=== PATIENT | female | born 1945 | race Caucasian/White ===

== ENCOUNTER 2016-12-15 09:11 | Emergency (ER) | payer BC, MEDICARE ==
[~2016-12-15] VITALS: Ht 167.6 cm; Wt 55.5 kg
[~2016-12-15 09:11] MED LIST: Z.0.NO CURRENT MEDS
[2016-12-15 09:13] VITALS: BP 198/104; PULSE 110; RESP 18; TEMP 98.5; O2SAT 96
[2016-12-15] MEDS ORDERED: ARTH650T6 PO (09:31)
[2016-12-15] MEDS ORDERED: OMEGCAP PO (09:31)
[2016-12-15] MEDS ORDERED: ADVI200C5 PO (09:31)
[2016-12-15] MEDS ORDERED: MULT-120 PO (09:31)
--- NOTE | 2016-12-15 09:36 | PD ---
HPI Chief Complaint: Back/ Neck Pain or Injury Time Seen by Provider: 09:34 Travel History International Travel<30 days: No Contact w/Intl Traveler<30days: No Traveled to known affect area: No History of Present Illness HPI 71-year-old female with history of rheumatoid arthritis, presents to the ER today for 3 weeks history of mid back pain that started on its own. She denies any fevers, incontinence, chest pains, abdominal pains, vomiting, or any other symptoms. She states that pain is currently a 9 out of 10 and worse with movements. Modifying Factors: None Associated Signs & Symptoms: 3 weeks of mid back pain Risk Factors: None PFSH Past Medical History Hx Anticoagulant Therapy: No Blood Disorders: No Cancer: No Cardiovascular Problems: No Chemotherapy: No Diabetes: No Genitourinary: No Immune Disorder: No Musculoskeletal: Yes (RHEUMATOID ARTHRITIS) Neurologic: No Reproductive: No Respiratory: No Radiation Therapy: No ?: Not Menopausal: Yes Past Surgical History Hysterectomy: No Joint Replacement: Yes (right hip) Social History Alcohol Use: Yes (DAILY 2 BEERS AND 3 MIXED DRINKS) Tobacco Use: Yes (0.5 PPD) Substance Use: No Allergies-Medications (Allergen,Severity, Reaction): Coded Allergies: No Known Allergies (Verified , 12/15/16) Reported Meds & Prescriptions Reported Meds & Active Scripts Active Reported Multivitamin Women (Multiple Vitamins W/ Minerals) 1 Tab Tab 1 Tab PO DAILY Advil (Ibuprofen) 200 Mg Cap 600 Mg PO TID Arthritis Pain Reliever ER 8 HR (Acetaminophen) 650 Mg Tab 650 Mg PO Q8HR PRN [place]-3 Fish Oil/Vitamin (Fish Oil-Cholecalciferol) 1,000-1,000 Mg Cap 1 Cap PO DAILY Review of Systems Except as stated in HPI: all other systems reviewed are Neg Physical Exam Narrative GENERAL: Well-developed elderly white female patient currently in mild distress. Awake and oriented 3. SKIN: Focused skin assessment warm/dry. HEAD: Atraumatic. Normocephalic. EYES: Pupils equal and round. No scleral icterus. No injection or drainage. ENT: No nasal bleeding or discharge. Mucous membranes pink and moist. NECK: Trachea midline. No JVD. CARDIOVASCULAR: Regular rate and rhythm. No murmur appreciated. RESPIRATORY: No accessory muscle use. Clear to auscultation. Breath sounds equal bilaterally. GASTROINTESTINAL: Abdomen soft, non-tender, nondistended. Hepatic and splenic margins not palpable. BACK: No CVA tenderness. No rash. Paraspinal mid back area tenderness around T9 -T10 area with no step-offs or obvious deformities. MUSCULOSKELETAL: No obvious deformities. No clubbing. No cyanosis. No edema. NEUROLOGICAL: Awake and alert. No obvious cranial nerve deficits. Motor grossly within normal limits. Normal speech. PSYCHIATRIC: Appropriate mood and affect; insight and judgment normal. Data Data Last Documented VS Vital Signs Date Time Temp Pulse Resp B/P Pulse Ox O2 Delivery O2 Flow Rate FiO2 12/15/16 11:09 15 12/15/16 09:13 98.5 110 198/104 96 Orders Tramadol-Acetamin 37.5-325 Mg (Ultracet (12/15/16 09:45) Ct Thor Spine W/O Contrast (12/15/16 09:37) Ct Lumb Spine W/O Contrast (12/15/16 09:37) [facility] Medical Decision Making Medical Screen Exam Complete: Yes Emergency Medical Condition: Yes Medical Record Reviewed: Yes Interpretation(s) Last 24 hours Impressions Thoracic Spine CT 12/15/16936 Signed Impressions: Service Date/Time: December 09:39 - CONCLUSION: 1. Diffuse lytic process at T7 with paraspinal prominence and effacement of the ventral thecal sac without canal stenosis. This is likely related to metastatic disease. Mild loss of height of T7. 2. Small lytic lesion also at T5 and is scattered throughout the cervical spine not completely evaluated. 3. Scoliosis and degenerative changes. Jeff Hardy MD Lumbar Spine CT 12/15/16936 Signed Impressions: Service Date/Time: December 09:39 - CONCLUSION: 1. Lytic bone destruction of the medial 11th rib with soft tissue mass. Differential diagnosis is myeloma or metastatic bone disease. 2. Mild compression fractures of L4 and T12 as above. 3. Moderate to advanced degenerative disc disease with a rotatory levoscoliosis and multilevel canal stenosis as above. Juan Marcos MD Differential Diagnosis Mid back pains for 3 weeksarthritis versus fractures versus other acute processes Narrative Course CTs show multilevel areas of what appears to be lytic lesions concerning for underlying myeloma or metastatic disease. There are no signs of spinal cord compression and any these levels. Patient is ambulatory in the ER, was given tramadol and has no focal neurological deficits. At this point, I have talked to the patient regarding findings and have recommended further follow-up with primary care physician in oncology. Return for any worsening in pain or disability or new issues as needed. The plan has been discussed with the patient and she states understanding. Diagnosis Primary Impression: Lytic lesion of bone on x-ray Additional Impression: Back pain Med/Other Pt SpecificInfo: Prescription(s) given Scripts Hydrocodone-Acetaminophen (Lortab)5-325 Mg Tab1-2 Tab PO Q6H PRN (PAIN) #20 TAB Ref 0 Prov:Marlene Cortes MD 12/15/16 Disposition: 01 DISCHARGE HOME Condition: Stable Marlene Cortes MD December 15, 2016 09:36
[2016-12-15] MEDS ORDERED: traMADol/ACETAMINOPHEN 37.5/325 1 TAB PO ONE (09:45)
[2016-12-15 11:09] VITALS: RESP 15
--- NOTE | 2016-12-15 11:09 | RADHPO ---
EXAM DATE/TIME: 12/15/2016 09:39 [facility] COMPARISON: No previous studies available for comparison. INDICATIONS : Upper back pain x 3 days. RADIATION DOSE: 22.81 CTDIvol (mGy) ; Combined studies - Thoracic Spine/Lumbar Spine MEDICAL HISTORY : Rheumatoid arthritis. SURGICAL HISTORY : Right hip replacement. ENCOUNTER: Initial ACUITY: 3 weeks PAIN SCALE: 8/10 LOCATION: Thoracic spine TECHNIQUE: Volumetric scanning of the thoracic spine was performed. Multiplanar reconstructions in the sagittal , coronal and oblique axial planes were performed. Using automated exposure control and adjustment o f the mA and/or kV according to patient size, radiation dose was kept as low as reasonably achievable to obtain optimal diagnostic quality images. FINDINGS: There is dextroscoliosis of the midthoracic spine and levoscoliosis at the thoracolumbar junction. Th ere is mild loss of height along the superior endplate of T12, likely old. Multilevel degenerative ch anges. There is osteopenia. Diffuse lytic process throughout T7 vertebral body with slight paraspinal soft tissue prominence concerning for metastatic disease. Mild loss of height of T7. Slight lytic le abdi also involving the left aspect of T5. There may be some lytic lesions also within the cervical s pine. T1-T2: Normal. T2-T3: The thecal sac has a normal diameter. No evidence of disc bulge or protrusion. T3-T4: The thecal sac has a normal diameter. No evidence of disc bulge or protrusion. T4-T5: The thecal sac has a normal diameter. No evidence of disc bulge or protrusion. T5-T6: The thecal sac has a normal diameter. No evidence of disc bulge or protrusion. T6-T7: The thecal sac has a normal diameter. No evidence of disc bulge or protrusion. T7-T8: Slight retropulsion of posterior fragments at T7 abutting the ventral thecal sac without significant canal stenosis. T8-T9: Mild broad-based disc bulge without canal stenosis. T9-T10: The thecal sac has a normal diameter. No evidence of disc bulge or protrusion. T10-T11: The thecal sac has a normal diameter. No evidence of disc bulge or protrusion. T11-T12: The thecal sac has a normal diameter. No evidence of disc bulge or protrusion. T12-L1: The thecal sac has a normal diameter. No evidence of disc bulge or protrusion. CONCLUSION: 1. Diffuse lytic process at T7 with paraspinal prominence and effacement of the ventral thecal sac wi thout canal stenosis. This is likely related to metastatic disease. Mild loss of height of T7. 2. Small lytic lesion also at T5 and is scattered throughout the cervical spine not completely evalua sissy. 3. Scoliosis and degenerative changes. Jeff Hardy MD on December 15, 2016 at 11:00 Board Certified Radiologist. This report was verified electronically.
--- NOTE | 2016-12-15 11:16 | RADHPO ---
EXAM DATE/TIME: 12/15/2016 09:39 [facility] COMPARISON: No previous studies available for comparison. INDICATIONS : Back pain. RADIATION DOSE: 22.81 CTDIvol (mGy) ; Combined studies - Thoracic Spine/Lumbar Spine MEDICAL HISTORY : Rheumatoid arthritis. SURGICAL HISTORY : Right hip replacement. ENCOUNTER: Initial ACUITY: 3 weeks PAIN SCALE: 2/10 LOCATION: Lumbar spine. TECHNIQUE: Volumetric scanning of the lumbar spine was performed. Multiplanar reconstructions in the sagittal, coronal and oblique axial planes were performed. Using automated exposure control and adjustment of the mA and/or kV according to patient size, radiation dose was kept as low as reasonably achievable t o obtain optimal diagnostic quality images. FINDINGS: There is lytic bone destruction of the medial aspect of the right 11th rib associated with a 4.6 x 2. 4 cm soft tissue mass, suspicious for either myeloma or metastatic bone disease. There is a mild compression fracture involving the inferior endplate of L4. Incidental note also made of a compression fracture superior endplate T12. There is a moderate rotatory lumbar dextroscoliosis . Moderate degenerative disc disease present throughout. At T12-L1 there is no significant stenosis. At L1-2 there is a disc osteophyte complex with right-sided lateral recess and foraminal stenosis. At L2-3 there is a broad-based disc osteophyte complex with mild central canal and bilateral foramina l stenosis. At L3-4 there is a grade 1 anterolisthesis and mild disc protrusion with facet arthropathy resulting in moderate central canal stenosis and bilateral foraminal stenosis. At L4-5 there is also a grade 1 anterolisthesis and facet arthropathy with moderate central canal lat eral recess stenosis as well as bilateral foraminal stenosis. L5-S1 is a disc bulge. No central canal stenosis. Bilateral foraminal stenosis, left greater than rig ht. CONCLUSION: 1. Lytic bone destruction of the medial 11th rib with soft tissue mass. Differential diagnosis is mye ritesh or metastatic bone disease. 2. Mild compression fractures of L4 and T12 as above. 3. Moderate to advanced degenerative disc disease with a rotatory levoscoliosis and multilevel canal stenosis as above. Juan Marcos MD on December 15, 2016 at 11:08 Board Certified Radiologist. This report was verified electronically.
[2016-12-15] MEDS ORDERED: HYDR-3533 PO (12:07)
[2016-12-15 12:10] VITALS: BP 138/78
== END 2016-12-15 12:19 | disposition home or self-care (01) ==
LOC: PHEFT 09:11
DX: M89.9 Disorder of bone, unspecified (principal); R93.7 Abnormal findings on diagnostic imaging of other parts of musculoskeletal system; M54.9 Dorsalgia, unspecified
CPT/HCPCS: 72128; 72131

== ENCOUNTER 2016-12-17 09:26 | Inpatient (IN) | payer MEDICARE ==
[~2016-12-17] VITALS: Ht 162.6 cm; Wt 58.3 kg
[~2016-12-17 09:26] MED LIST changes: +ADVI200C5 PO; +ARTH650T6 PO; +HYDR-3533 PO; +MULT-120 PO; +OMEGCAP PO; -Z.0.NO CURRENT MEDS
[2016-12-17 09:33] VITALS: BP 146/70; PULSE 100; RESP 16; TEMP 97.6; O2SAT 98
[2016-12-17] MEDS ORDERED: PERC7.5T13 PO (09:44)
[2016-12-17] MEDS ORDERED: NAPR220T95 PO (09:44)
--- NOTE | 2016-12-17 09:59 | PD ---
HPI Chief Complaint: Back/ Neck Pain or Injury Time Seen by Provider: 09:47 Travel History International Travel<30 days: No Contact w/Intl Traveler<30days: No Traveled to known affect area: No History of Present Illness HPI 71-year-old female with history of rheumatoid arthritis here for evaluation of left upper back pain. The patient was seen in the emergency department 2 days ago for evaluation of the same pain which has been going on for the last 3 weeks. At that time she had CT thoracic spine and lumbar spine which show diffuse lytic process concerning for metastatic disease. Patient was discharged home with hydrocodone which she states is not helping her. She was unable to get in with her primary care physician. Pain is severe, constant, worse with movement and palpation. She denies dyspnea. No history of cardiopulmonary disease. No urinary or bowel incontinence or retention. No previous history of any known cancers. PFSH Past Medical History Hx Anticoagulant Therapy: No Blood Disorders: No Cancer: No Cardiovascular Problems: No Chemotherapy: No Diabetes: No Genitourinary: No Immune Disorder: No Musculoskeletal: Yes (RHEUMATOID ARTHRITIS) Neurologic: No Reproductive: No Respiratory: No Radiation Therapy: No ?: Not Menopausal: Yes Past Surgical History Hysterectomy: No Joint Replacement: Yes (right hip) Social History Alcohol Use: Yes (DAILY 2 BEERS AND 3 MIXED DRINKS) Tobacco Use: Yes (0.5 PPD) Substance Use: No Allergies-Medications (Allergen,Severity, Reaction): Coded Allergies: No Known Allergies (Verified , 12/17/16) Reported Meds & Prescriptions Reported Meds & Active Scripts Active Lortab (Hydrocodone-Acetaminophen) 5-325 Mg Tab 1-2 Tab PO Q6H PRN Reported Percocet (Oxycodone-Acetaminophen) 7.5-325 mg Tab 1 Tab PO Q6H PRN Aleve (Naproxen Sodium) 220 Mg Tab 220 Mg PO BID PRN Multivitamin Women (Multiple Vitamins W/ Minerals) 1 Tab Tab 1 Tab PO DAILY Advil (Ibuprofen) 200 Mg Cap 600 Mg PO TID [place]-3 Fish Oil/Vitamin (Fish Oil-Cholecalciferol) 1,000-1,000 Mg Cap 1 Cap PO DAILY Review of Systems Except as stated in HPI: all other systems reviewed are Neg Physical Exam Narrative GENERAL: Well-developed, frail, elderly appearing female, sitting on stretcher, no distress secondary to pain. SKIN: Focused skin assessment warm/dry. No rash. HEAD: Atraumatic. Normocephalic. EYES: Pupils equal and round. No scleral icterus. No injection or drainage. ENT: Mucous membranes pink and moist. NECK: Trachea midline. No JVD. CARDIOVASCULAR: Regular rate and rhythm. No murmur appreciated. RESPIRATORY: No accessory muscle use. Clear to auscultation. Breath sounds equal bilaterally. GASTROINTESTINAL: Abdomen soft, non-tender, nondistended. MUSCULOSKELETAL: Left upper posterior chest wall tenderness without step-off, without crepitus, without paradoxical chest wall movement. NEUROLOGICAL: Awake and alert. No obvious cranial nerve deficits. Motor grossly within normal limits. Normal speech. PSYCHIATRIC: Appropriate mood and affect; insight and judgment normal. Data Data Last Documented VS Vital Signs Date Time Temp Pulse Resp B/P Pulse Ox O2 Delivery O2 Flow Rate FiO2 12/17/16 11:14 96 16 148/64 95 Room Air 12/17/16 09:33 97.6 Orders Electrocardiogram (12/17/16 09:53) Basic Metabolic Panel (Bmp) (12/17/16 09:53) Ckmb (Isoenzyme) Profile (12/17/16 09:53) Complete Blood Count With Diff (12/17/16 09:53) Magnesium (Mg) (12/17/16 09:53) Prothrombin Time / Inr (Pt) (12/17/16 09:53) Act Partial Throm Time (Ptt) (12/17/16 09:53) Troponin I (12/17/16 09:53) Ecg Monitoring (12/17/16 09:53) Iv Access Insert/Monitor (12/17/16 09:53) Oximetry (12/17/16 09:53) Sodium Chloride 0.9% Flush (Ns Flush) (12/17/16 10:00) Morphine Inj (Morphine Inj) (12/17/16 10:00) Ct Pulmonary Angiogram (12/17/16 09:53) Ct Abd/Pel W Iv Contrast(Rout) (12/17/16 ) Morphine Inj (Morphine Inj) (12/17/16 10:00) Sodium Chlor 0.9% 1000 Ml Inj (Ns 1000 M (12/17/16 10:45) Potassium Chloride (Kcl) (12/17/16 10:45) Iohexol 350 Inj (Omnipaque 350 Inj) (12/17/16 11:50) Morphine Inj (Morphine Inj) (12/17/16 12:30) Labs Laboratory Tests Test 12/17/16 10:18 White Blood Count 9.2 TH/MM3 Red Blood Count 4.47 MIL/MM3 Hemoglobin 13.9 GM/DL Hematocrit 41.6 % Mean Corpuscular Volume 93.0 FL Mean Corpuscular Hemoglobin 31.1 PG Mean Corpuscular Hemoglobin 33.5 % Concent Red Cell Distribution Width 11.2 % Platelet Count 496 TH/MM3 Mean Platelet Volume 6.6 FL Neutrophils (%) (Auto) 85.5 % Lymphocytes (%) (Auto) 7.4 % Monocytes (%) (Auto) 4.7 % Eosinophils (%) (Auto) 0.0 % Basophils (%) (Auto) 2.4 % Neutrophils # (Auto) 7.9 TH/MM3 Lymphocytes # (Auto) 0.7 TH/MM3 Monocytes # (Auto) 0.4 TH/MM3 Eosinophils # (Auto) 0.0 TH/MM3 Basophils # (Auto) 0.2 TH/MM3 CBC Comment DIFF FINAL Differential Comment Prothrombin Time 10.9 SEC Prothromb Time International 1.0 RATIO Ratio Activated Partial 31.5 SEC Thromboplast Time Sodium Level 126 MEQ/L Potassium Level 3.2 MEQ/L Chloride Level 88 MEQ/L Carbon Dioxide Level 27.8 MEQ/L Anion Gap 10 MEQ/L Blood Urea Nitrogen 11 MG/DL Creatinine 0.88 MG/DL Estimat Glomerular Filtration 63 ML/MIN Rate Random Glucose 204 MG/DL Calcium Level 10.3 MG/DL Magnesium Level 1.8 MG/DL Total Creatine Kinase 48 U/L Troponin I LESS THAN 0.02 NG/ML [facility] Medical Decision Making Medical Screen Exam Complete: Yes Emergency Medical Condition: Yes Medical Record Reviewed: Yes Differential Diagnosis Metastatic disease, multiple myeloma, metabolic abnormality Narrative Course Initial vital signs show heart rate 100, blood pressure 146/70, pulse ox 98% on room air, oral temp of 97.6F. CBC shows WBC 9.2, hemoglobin 13.9, hematocrit 41.6, platelets 496, neutrophils 85.5%, lymphocytes 7.4%. BMP is remarkable for sodium 126, potassium 3.2, chloride 88, calcium 10.3. Cardiac enzymes are negative. CT abdomen pelvis: CONCLUSION: 1. Metastatic lesion to the left posterior acetabulum. 2. Left adnexal mass measures 4.0 x 2.7 cm could be ovarian in etiology. Pelvic sonogram may be warranted. 3. Wall thickening involving the anterior urinary bladder measuring [address] pulmonary angiogram: CONCLUSION: 1. Bibasilar patchy densities likely atelectasis. 2. No evidence for pulmonary embolism. 3. Metastatic lesions involving thoracic spine and right 11th ribs. Patient was made aware of all findings. She has had moderate improvement in her pain after morphine, however she is still having back pain. She was given another dose of morphine. Given intractable pain, electrolyte abnormalities as above, and metastatic disease, the patient will be admitted for further treatment and evaluation. Case discussed with hospitalist Dr. Xiong who will admit the patient to his service. Diagnosis Primary Impression: Metastatic disease Additional Impressions: Hyponatremia Hypokalemia Intractable pain Admitting Information Admitting Physician Requests: Admit David Perez MD December 17, 2016 09:59
[2016-12-17] MEDS ORDERED: MORPHINE SULFATE 4 MG/ML INJ IV PUSH ONE ×3 (10:00→12:30)
[2016-12-17] MEDS ORDERED: SODIUM CHLORIDE 0.9% FLUSH 10 ML FLUSH IVF PRN (10:00)
[2016-12-17 10:09] VITALS: O2SAT 97
[2016-12-17 10:23] LABS: AUTOMATED NEUTROPHIL # 7.9 TH/MM3 (1.8-7.7); BASOPHIL # 0.2 TH/MM3 (0-0.2); BASOPHIL % 2.4 % (0.0-2.0); HEMATOCRIT 41.6 % (35.0-46.0); HEMO FLAGS DIFF FINAL; LYMPH % 7.4 % (9.0-44.0); LYMPHOCYTE # 0.7 TH/MM3 (1.0-4.8); MEAN CORPUSCULAR HEMOGLOBIN 31.1 PG (27.0-34.0); MEAN CORPUSCULAR HGB CONC 33.5 % (32.0-36.0); MONO % 4.7 % (0.0-8.0); NEUT % 85.5 % (16.0-70.0); PLATELET COUNT 496 TH/MM3 (150-450); RED BLOOD COUNT 4.47 MIL/MM3 (4.00-5.30); RED CELL DISTRIBUTION WIDTH 11.2 % (11.6-17.2); WHITE BLOOD COUNT 9.2 TH/MM3 (4.0-11.0)
[2016-12-17 10:31] LABS: CHLORIDE 88 MEQ/L (98-107); POTASSIUM 3.2 MEQ/L (3.5-5.1); SODIUM (NA) 126 MEQ/L (136-145)
[2016-12-17 10:34] LABS: ANION GAP 10 MEQ/L (5-15); BICARBONATE 27.8 MEQ/L (21.0-32.0); BLOOD UREA NITROGEN 11 MG/DL (7-18); MAGNESIUM 1.8 MG/DL (1.5-2.5)
[2016-12-17 10:35] LABS: APTT (PATIENT) 31.5 SEC (24.3-30.1); PROTHROMBIN TIME - PATIENT 10.9 SEC (9.8-11.6)
[2016-12-17 10:37] LABS: GLOMERULAR FILTRATION RATE 63 ML/MIN (>89)
[2016-12-17 10:41] LABS: CREATINE KINASE 48 U/L (26-192)
[2016-12-17] MEDS ORDERED: SODIUM CHLOR 0.9% 1000 ML INJ 1,000 ML IV SCH (10:45)
[2016-12-17] MEDS ORDERED: POTASSIUM CHLORIDE 20 MEQ CONTROLLED RELEASE TAB PO ONE (10:45)
[2016-12-17 11:14] VITALS: BP 148/64; PULSE 96; RESP 16; O2SAT 95
[2016-12-17] MEDS ORDERED: IOHEXOL 350 MG/ML 10 ML VIAL (for RAD DIAG) IV ONE (11:50)
--- NOTE | 2016-12-17 11:54 | RADHPO ---
EXAM DATE/TIME: 12/17/2016 11:23 [facility] COMPARISON: No previous studies available for comparison. INDICATIONS : Low chest pain and mid abdomen pain for one month. IV CONTRAST: 100 cc Omnipaque 350 (iohexol) IV ; Cumulative dose for multiple exams. RADIATION DOSE: 13.95 CTDIvol (mGy) MEDICAL HISTORY : Rheumatoid arthritis. SURGICAL HISTORY : None. ENCOUNTER: Initial ACUITY: 1 month PAIN SCALE: 8/10 LOCATION: Left chest TECHNIQUE: Volumetric scanning of the chest was performed using a pulmonary embolism protocol MIP images were re constructed. Using automated exposure control and adjustment of the mA and/or kV according to patien t size, radiation dose was kept as low as reasonably achievable to obtain optimal diagnostic quality images. FINDINGS: PULMONARY ARTERIES: No filling defects are seen in the pulmonary arteries through the segmental level. LUNGS: There is no consolidation or pneumothorax . No concerning pulmonary nodule is visualized. Bibasilar patchy densities. PLEURAE: There is no pleural thickening or pleural effusion. MEDIASTINUM: There is good visualization of the great vessels of the middle mediastinum. No evidence of mediastin al or hilar adenopathy/mass. Coronary artery calcifications. MUSCULOSKELETAL: Lytic lesions at T7 and T5. Soft tissue density with destruction of the right 11th rib medially. Ther e is also appears to be metastatic disease involving the right proximal humerus Scoliosis and degener ative changes. MISCELLANEOUS: The visualized upper abdominal organs demonstrate no acute abnormality. CONCLUSION: 1. Bibasilar patchy densities likely atelectasis. 2. No evidence for pulmonary embolism. 3. Metastatic lesions involving thoracic spine and right 11th ribs. Jeff Hardy MD on December 17, 2016 at 11:47 Board Certified Radiologist. This report was verified electronically.
--- NOTE | 2016-12-17 11:59 | RADHPO ---
EXAM DATE/TIME: 12/17/2016 11:23 [facility] COMPARISON: No previous studies available for comparison. INDICATIONS : Low chest pain and mid abdomen pain for one month. IV CONTRAST: 100 cc Omnipaque 350 (iohexol) IV ; Cumulative dose for multiple exams. ORAL CONTRAST: No oral contrast ingested. RADIATION DOSE: 15.17 CTDIvol (mGy) MEDICAL HISTORY : Rheumatoid arthritis. SURGICAL HISTORY : None. ENCOUNTER: Initial ACUITY: 1 day PAIN SCALE: 8/10 LOCATION: Left abdomen. TECHNIQUE: Volumetric scanning of the abdomen and pelvis was performed. Using automated exposure control and ad justment of the mA and/or kV according to patient size, radiation dose was kept as low as reasonably achievable to obtain optimal diagnostic quality images. FINDINGS: LOWER LUNGS: The visualized lower lungs are clear. LIVER: Homogeneous density without lesion. There is no dilation of the biliary tree. No calcified gallston es. SPLEEN: Normal size without lesion. PANCREAS: Within normal limits. KIDNEYS: Normal in size and shape. There is no mass, stone or hydronephrosis. Small left renal cyst posterior ly. ADRENAL GLANDS: Within normal limits. VASCULAR: There is no aortic aneurysm. Diffuse atherosclerotic changes. BOWEL/MESENTERY: The stomach, small bowel, and colon demonstrate no acute abnormality. There is no free intraperitone al air or fluid. ABDOMINAL WALL: Within normal limits. RETROPERITONEUM: There is no lymphadenopathy. BLADDER: There is wall thickening anteriorly measuring 11 mm. REPRODUCTIVE: Left adnexal mass measures 3.7 x 4.0 cm. INGUINAL: There is no lymphadenopathy or hernia. MUSCULOSKELETAL: Soft tissue density involving the left posterior acetabulum measuring 2.6 x 3.8 cm. Right hip prosthe sis. CONCLUSION: 1. Metastatic lesion to the left posterior acetabulum. 2. Left adnexal mass measures 4.0 x 2.7 cm could be ovarian in etiology. Pelvic sonogram may be warra nted. 3. Wall thickening involving the anterior urinary bladder measuring 11 mm in thickness. Jeff Hardy MD on December 17, 2016 at 11:53 Board Certified Radiologist. This report was verified electronically.
[2016-12-17] MEDS ORDERED: NALOXONE HCL 0.4 MG/ML AMP IV PRN (12:30)
[2016-12-17] MEDS ORDERED: SODIUM CHLORIDE 0.9% FLUSH 10 ML FLUSH IV FLUSH PRN (12:30)
[2016-12-17] MEDS ORDERED: MAGNESIUM HYDROXIDE SUSP 30 ML CUP PO PRN (12:30)
[2016-12-17] MEDS ORDERED: ONDANSETRON HCL 4 MG/2 ML VIAL IVP PRN (12:30)
[2016-12-17] MEDS: DOCUSATE SODIUM 100 MG CAP PO SCH ×2 (12:53→21:06)
[2016-12-17] MEDS: SODIUM CHLOR 0.9% 1000 ML INJ 1,000 ML IV SCH (12:54)
[2016-12-17 13:49] VITALS: BP 133/69
[2016-12-17] MEDS: HEPARIN SODIUM - SQ 10,000 UNITS/ML VIAL SQ SCH (15:12)
[2016-12-17] MEDS: MORPHINE SULFATE 30 MG CONTROLLED RELEASE TAB PO SCH ×2 (15:12→21:42)
--- NOTE | 2016-12-17 16:44 | HHI.HP ---
[facility] Darius Lerma MD Admission Diagnosis metastatic disease, hyponatremia, hypokalemia, intractable pain Diagnoses: Chief Complaint: Intractable back pain, failed outpatient therapy Travel History International Travel<30 Days: No Contact w/Intl Traveler <30 Da: No Traveled to Known Affected Are: No History of Present Illness 71-year-old female with history of rheumatoid arthritis who initially presented to the hospital 2 days ago with complaint of back pain. The patient was found to have to have thoracic spine lytic lesions concerning for underlying myeloma or metastatic disease. She was discharged home with pain medication to follow- up outpatient with her primary care physician for referral to oncology. However the patient reports Lortab did not help her pain at all. She is having difficulty ambulating and the pain is severe. It is located in the mid upper back mostly with radiation to the left lower ribs. It is difficult for her to take deep breaths. Further imaging in the emergency room today revealed lytic lesion in the left posterior acetabulum and an adnexal mass measuring 4 x 2.7 cm. The patient is also found to be hypernatremic and hypokalemic. She has not been eating or drinking much since she has been feeling poorly. She has not been able to get in with her primary care physician. Hospitalist service contacted for admission, further workup and treatment. Review of Systems Constitutional: DENIES: Fever, Chills Respiratory: DENIES: Cough, Shortness of breath Cardiovascular: DENIES: Chest pain Gastrointestinal: DENIES: Nausea, Vomiting Musculoskeletal: COMPLAINS OF: Back pain Except as stated in HPI: all other systems reviewed are Neg Past Family Social History Past Medical History Rheumatoid arthritis History of alcohol abuse Scoliosis Past Surgical History Right hip fracture repair with rods and plates Reported Medications Reported Meds & Active Scripts Active Lortab (Hydrocodone-Acetaminophen) 5-325 Mg Tab 1-2 Tab PO Q6H PRN Reported Percocet (Oxycodone-Acetaminophen) 7.5-325 mg Tab 1 Tab PO Q6H PRN Aleve (Naproxen Sodium) 220 Mg Tab 220 Mg PO BID PRN Multivitamin Women (Multiple Vitamins W/ Minerals) 1 Tab Tab 1 Tab PO DAILY Advil (Ibuprofen) 200 Mg Cap 600 Mg PO TID [place]-3 Fish Oil/Vitamin (Fish Oil-Cholecalciferol) 1,000-1,000 Mg Cap 1 Cap PO DAILY Allergies: Coded Allergies: No Known Allergies (Verified , 12/17/16) Family History Mother with history of diabetes and rheumatic fever. Father was healthy Social History Patient admits to drinking 4 beers daily and 2 glasses of wine at night. She has been smoking half a pack per day for the past 50 years. She denies illicit drug use. Physical Exam Vital Signs Vital Signs Date Time Temp Pulse Resp B/P Pulse Ox O2 Delivery O2 Flow Rate FiO2 12/17/16 13:49 101 16 133/69 99 12/17/16 11:14 96 16 148/64 95 Room Air 12/17/16 11:08 16 12/17/16 10:09 97 Room Air 12/17/16 09:33 97.6 100 16 146/70 98 Physical Exam GENERAL: Elderly female in no acute distress. SKIN: No rashes, ecchymoses or lesions. Cool and dry. HEAD: Atraumatic. Normocephalic. No temporal or scalp tenderness. EYES: Pupils equal round and reactive. Extraocular motions intact. No scleral icterus. No injection or drainage. ENT: Nose without bleeding, purulent drainage or septal hematoma. Throat without erythema, tonsillar hypertrophy or exudate. Uvula midline. Airway patent. NECK: Trachea midline. No JVD or lymphadenopathy. Supple, nontender, no meningeal signs. CARDIOVASCULAR: Regular rate and rhythm without murmurs, gallops, or rubs. RESPIRATORY: Clear to auscultation. Breath sounds equal bilaterally. No wheezes , rales, or rhonchi. GASTROINTESTINAL: Abdomen soft, non-tender, nondistended. No hepato-splenomegaly , or palpable masses. No guarding. MUSCULOSKELETAL: Patient is tender to palpation over the upper back/thoracic region. She also endorsed tenderness to palpation over the left lower ribs. Extremities without clubbing, cyanosis, or edema. NEUROLOGICAL: Awake and alert. Cranial nerves II through XII intact. Motor and sensory grossly within normal limits. Five out of 5 muscle strength in all muscle groups. Normal speech. Laboratory Laboratory Tests Test 12/17/16 10:18 White Blood Count 9.2 Red Blood Count 4.47 Hemoglobin 13.9 Hematocrit 41.6 Mean Corpuscular Volume 93.0 Mean Corpuscular Hemoglobin 31.1 Mean Corpuscular Hemoglobin 33.5 Concent Red Cell Distribution Width 11.2 Platelet Count 496 Mean Platelet Volume 6.6 Neutrophils (%) (Auto) 85.5 Lymphocytes (%) (Auto) 7.4 Monocytes (%) (Auto) 4.7 Eosinophils (%) (Auto) 0.0 Basophils (%) (Auto) 2.4 Neutrophils # (Auto) 7.9 Lymphocytes # (Auto) 0.7 Monocytes # (Auto) 0.4 Eosinophils # (Auto) 0.0 Basophils # (Auto) 0.2 CBC Comment DIFF FINAL Differential Comment Prothrombin Time 10.9 Prothromb Time International 1.0 Ratio Activated Partial 31.5 Thromboplast Time Sodium Level 126 Potassium Level 3.2 Chloride Level 88 Carbon Dioxide Level 27.8 Anion Gap 10 Blood Urea Nitrogen 11 Creatinine 0.88 Estimat Glomerular Filtration 63 Rate Random Glucose 204 Calcium Level 10.3 Magnesium Level 1.8 Total Creatine Kinase 48 Troponin I LESS THAN 0.02 Result Diagram: 12/17/16 1018 12/17/[address] Angiography 12/17/16 0953 Signed Impressions: Service Date/Time: Saturday, December 17, 2016 11:23 - CONCLUSION: 1. Bibasilar patchy densities likely atelectasis. 2. No evidence for pulmonary embolism. 3. Metastatic lesions involving thoracic spine and right 11th ribs. Jeff Hardy MD Abdomen/Pelvis CT 12/17/16 0000 Signed Impressions: Service Date/Time: Saturday, December 17, 2016 11:23 - CONCLUSION: 1. Metastatic lesion to the left posterior acetabulum. 2. Left adnexal mass measures 4.0 x 2.7 cm could be ovarian in etiology. Pelvic sonogram may be warranted. 3. Wall thickening involving the anterior urinary bladder measuring 11 mm in thickness. Jeff Hardy MD Assessment and Plan Problem List: (1) Intractable pain ICD Code: R52 Status: Acute Plan: Patient has multiple bony lytic lesions concerning for metastatic disease. She does have an adnexal mass that could potentially be ovarian in origin. - Pain control. Will switch her to oral long-acting morphine. IV morphine for breakthrough - Consult oncology for recommendations. (2) Lytic lesion of bone on x-ray ICD Code: M89.9 Status: Acute Plan: See treatment as above. (3) Adnexal mass ICD Code: N94.9 Status: Acute Plan: May be a potential site for biopsy. Awaiting recommendations from oncology. (4) Back pain ICD Code: M54.9 Status: Acute (5) Hypokalemia ICD Code: E87.6 Status: Acute Plan: Replace and monitor. (6) Hyponatremia ICD Code: E87.1 Status: Acute Plan: Probably hypovolemic hyponatremia from lack of oral intake. IV fluid for hydration. Follow labs in AM. (7) Tobacco abuse ICD Code: Z72.0 Status: Acute Plan: The patient was counseled to quit. (8) Alcohol abuse ICD Code: F10.10 Status: Acute Plan: Will start CIWA protocol Patient counseled on the adverse effects of alcohol abuse. Discussed Condition With Carlyle Matute MD December 17, 2016 16:44
[2016-12-17] MEDS ORDERED: FLUMAZENIL 0.5 MG/5 ML VIAL IV PUSH PRN (16:45)
[2016-12-17] MEDS ORDERED: LORazepam 2 MG TAB PO PRN (16:45)
[2016-12-17] MEDS ORDERED: LORazepam 2 MG/ML VIAL IV PUSH PRN ×2 (16:45)
[2016-12-17 17:13] VITALS: BP 115/76; PULSE 92; RESP 15; TEMP 98.4; O2SAT 97
[2016-12-17 20:18] VITALS: BP 209/112; PULSE 97; RESP 22; TEMP 98.2; O2SAT 97
[2016-12-17] MEDS: SODIUM CHLORIDE 0.9% FLUSH 10 ML FLUSH IV FLUSH SCH (21:08)
--- NOTE | 2016-12-17 22:59 | MB ---
cc: FAIZA PARR DATE OF CONSULTATION 12/17/16 REASON FOR CONSULTATION Abnormal CT scans showing metastatic disease to bone and pelvic soft tissue mass. PATIENT PROFILE The patient is a 71-year-old white female. She is and was twice. She was born in [place] and has lived in [place] for 35 years. She lives alone. She is independent. She now has severe bone pain and it is very difficult for her to care for herself. She is retired. 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 She currently smokes six cigarettes a day. In the past, she had smoked a pack a day for approximately 50 years. She has four beers and two glasses of wine daily. HISTORY OF PRESENT ILLNESS The patient is a 71-year-old female with a longstanding history of tobacco and ethanol use. She has a history of rheumatoid arthritis but has never received treatment. She has a longstanding history of back pain from scoliosis and has seen a chiropractor for the last 17 years. During the past three weeks, she developed pain primarily in the thoracic spine and the left shoulder area. The pain became excruciating. On 12/15/2016 she went to the emergency room and she was found to have a diffuse lytic process at T7 with a paraspinal prominence and effacement of the ventral thecal sac without canal stenosis. This was felt to be related to metastatic disease. There was a small lytic lesion at T5 that was scoliosis. A CT of the lumbar spine showed a lytic bone destruction of the medial left rib with soft tissue mass. Differential diagnosis was myeloma or metastatic bone disease. There was mild compression of L4 and T12. She went home with the understanding being that she would follow up with her doctor and see a medical oncologist. She was not able to get an appointment immediately and the pain worsened. She returned and has been admitted. She had a CAT scan of the abdomen and pelvis on December 17, 2016 which shows a metastatic lesion to the left posterior acetabulum and a left adnexal mass measuring 4 x 2. centimeters. There was wall thickening involving the anterior urinary bladder measuring [address] angiogram of the chest showed bibasilar densities, likely atelectasis. There was no evidence for pulmonary embolism. There was metastatic lesions involving the thoracic spine and the right 11th rib. LABORATORY DATA Laboratory studies include a sodium of 126, potassium 3.2, chloride 88, CO2 27, BUN 11, creatinine 0.8, Hemoglobin is 13.9, white count 9000, platelets 496,000. PAST SURGICAL HISTORY Right hip replacement in approximately 2008 requiring a pin and a plate following a fall. PAST MEDICAL HISTORY 1. Ethanol abuse 2. Tobacco abuse 3. Rheumatoid arthritis. MEDICATIONS Prior to admission none ALLERGIES None. FAMILY HISTORY Noncontributory without any family history of cancer other than possibly one sister. REVIEW OF SYSTEMS No change in vision or hearing. No chest pain, palpitations, no shortness of breath. GI: No melena, hematochezia, no early satiety, no dysphagia. There has been a 5-pound weight loss. : No dysuria or frequency or vaginal bleeding. MUSCULOSKELETAL: Back pain, left shoulder pain. NEUROLOGIC: No focal weakness. PSYCHIATRIC: Depressed over what is going on. PHYSICAL EXAMINATION GENERAL: A woman looking older than stated age and uncomfortable when she moves about VITAL SIGNS: Blood pressure was 200/110, respiratory rate is 22 afebrile, O2 sat 97%, pulse 98. HEENT: Head is normocephalic. Sclerae and conjunctivae are normal. Oropharynx unremarkable. LYMPHS: No cervical, supraclavicular, axillary or inguinal adenopathy. BREASTS: Both breasts, no masses. HEART: Regular rhythm. LUNGS: Clear. ABDOMEN: Without hepatosplenomegaly or masses. EXTREMITIES: Without edema MUSCULOSKELETAL: There is pain over the thoracic spine and left scapular area. ASSESSMENT The patient is a 71-year-old female. She has metastatic disease to bone with a soft tissue component. The primary is not obvious. This would not be the normal pattern for ovarian cancer, although she has an adnexal mass. Ovarian cancer rarely goes to bone and causes intra-abdominal carcinomatosis. She has thickening of the bladder wall raising the possibility of a transitional cell cancer. She has a longstanding history of smoking. RECOMMENDATIONS 1. Check marker studies. Will check CEA, CA-125, serum protein electrophoresis, serum immunoelectrophoresis and urine immunoelectrophoresis 2. I think the simplest thing to do is to obtain a biopsy of the soft tissue mass arising from the right cage. This measures 4.6 x 2.4 cm and should be an easy target. MD MICHELLE Gray/ /10:08 PM /10:35 PM [email or web address]
[2016-12-17 23:04] LABS: APTT (PATIENT) 27.4 SEC (24.3-30.1)
[2016-12-17 23:12] LABS: AUTOMATED NEUTROPHIL # 5.2 TH/MM3 (1.8-7.7); BASOPHIL # 0.3 TH/MM3 (0-0.2); BASOPHIL % 3.7 % (0.0-2.0); EOSINOPHIL % 0.3 % (0.0-4.0); HEMATOCRIT 36.1 % (35.0-46.0); HEMO FLAGS DIFF FINAL; LYMPH % 20.4 % (9.0-44.0); LYMPHOCYTE # 1.5 TH/MM3 (1.0-4.8); MEAN CELL VOLUME 93.5 FL (80.0-100.0); MEAN CORPUSCULAR HEMOGLOBIN 31.4 PG (27.0-34.0); MEAN CORPUSCULAR HGB CONC 33.6 % (32.0-36.0); MONO % 8.3 % (0.0-8.0); NEUT % 67.3 % (16.0-70.0); PLATELET COUNT 432 TH/MM3 (150-450); RED BLOOD COUNT 3.86 MIL/MM3 (4.00-5.30); RED CELL DISTRIBUTION WIDTH 11.3 % (11.6-17.2); WHITE BLOOD COUNT 7.6 TH/MM3 (4.0-11.0)
[2016-12-18] MEDS: SODIUM CHLOR 0.9% 1000 ML INJ 1,000 ML IV SCH ×2 (00:08→08:45)
[2016-12-18 00:31] VITALS: BP 187/95; PULSE 91; RESP 20; TEMP 97.3; O2SAT 92
[2016-12-18] MEDS: HEPARIN SODIUM - SQ 10,000 UNITS/ML VIAL SQ SCH ×2 (01:00→13:24)
[2016-12-18] MEDS: MORPHINE SULFATE 30 MG CONTROLLED RELEASE TAB PO SCH ×3 (05:04→21:57)
[2016-12-18 06:04] LABS: AUTOMATED NEUTROPHIL # 6.1 TH/MM3 (1.8-7.7); BASOPHIL # 0.1 TH/MM3 (0-0.2); BASOPHIL % 0.8 % (0.0-2.0); EOSINOPHIL # 0.1 TH/MM3 (0-0.4); EOSINOPHIL % 0.8 % (0.0-4.0); HEMATOCRIT 35.9 % (35.0-46.0); LYMPH % 13.3 % (9.0-44.0); LYMPHOCYTE # 1.1 TH/MM3 (1.0-4.8); MEAN CELL VOLUME 93.2 FL (80.0-100.0); MEAN CORPUSCULAR HEMOGLOBIN 31.6 PG (27.0-34.0); MEAN CORPUSCULAR HGB CONC 33.9 % (32.0-36.0); MONO % 8.6 % (0.0-8.0); NEUT % 76.5 % (16.0-70.0); PLATELET COUNT 432 TH/MM3 (150-450); RED BLOOD COUNT 3.85 MIL/MM3 (4.00-5.30); RED CELL DISTRIBUTION WIDTH 11.4 % (11.6-17.2); WHITE BLOOD COUNT 8.1 TH/MM3 (4.0-11.0)
[2016-12-18 06:06] LABS: HEMO FLAGS DIFF FINAL
[2016-12-18 06:46] LABS: BICARBONATE 26.7 MEQ/L (21.0-32.0); POTASSIUM 3.5 MEQ/L (3.5-5.1)
[2016-12-18] MEDS ORDERED: cloNIDine HCL 0.1 MG TAB PO PRN (07:45)
[2016-12-18 08:00] VITALS: BP 181/93; PULSE 98; RESP 21; TEMP 97.3; O2SAT 92
[2016-12-18] MEDS: SODIUM CHLORIDE 0.9% FLUSH 10 ML FLUSH IV FLUSH SCH ×2 (08:45→21:56)
[2016-12-18] MEDS: MULTIVITAMINS/MINERALS THERAPEUTIC TAB PO SCH (08:45)
[2016-12-18] MEDS: DOCUSATE SODIUM 100 MG CAP PO SCH ×2 (08:46→21:56)
[2016-12-18] MEDS: amLODIPine BESYLATE 5 MG TAB PO SCH (08:46)
[2016-12-18] MEDS ORDERED: NON-FORMULARY DRUG (Fish Oil-Cholecalciferol (Omega-3 Fish Oil/Vitamin) 1 CAP) PO SCH (09:00)
[2016-12-18] MEDS ORDERED: PILL SPLITTER OTHER PRN (09:15)
[2016-12-18] MEDS: CYCLOBENZAPRINE HCL 10 MG TAB PO PRN ×2 (09:41→17:45)
--- NOTE | 2016-12-18 11:06 | HHI.PR ---
Subjective Remarks Patient reports feeling the same today. Still having significant upper back pain and muscle spasm. No shortness of breath. She has been evaluated by oncology, CT-guided biopsy has been ordered. Objective Vitals Vital Signs Date Time Temp Pulse Resp B/P Pulse Ox O2 Delivery O2 Flow Rate FiO2 12/18/16 08:00 97.3 98 21 181/93 92 12/18/16 00:31 97.3 91 20 187/95 92 12/17/16 20:18 98.2 97 22 209/112 97 12/17/16 17:13 98.4 92 15 115/76 97 12/17/16 13:49 101 16 133/69 99 12/17/16 11:14 96 16 148/64 95 Room Air 12/17/16 11:08 16 I/O 12/17/16 12/17/16 12/17/16 12/18/16 12/18/16 12/18/16 06:59 14:59 22:59 06:59 14:59 22:59 Intake Total 400 ml 382 ml 1191 ml Balance 400 ml 382 ml 1191 ml Intake Oral 250 ml IV Total 150 ml 382 ml 1191 ml # Voids 2 Result Diagram: 12/18/16 0530 12/18/[address] Angiography 12/17/16 0953 Signed Impressions: Service Date/Time: Saturday, December 17, 2016 11:23 - CONCLUSION: 1. Bibasilar patchy densities likely atelectasis. 2. No evidence for pulmonary embolism. 3. Metastatic lesions involving thoracic spine and right 11th ribs. Jeff Hardy MD Abdomen/Pelvis CT 12/17/16 0000 Signed Impressions: Service Date/Time: Saturday, December 17, 2016 11:23 - CONCLUSION: 1. Metastatic lesion to the left posterior acetabulum. 2. Left adnexal mass measures 4.0 x 2.7 cm could be ovarian in etiology. Pelvic sonogram may be warranted. 3. Wall thickening involving the anterior urinary bladder measuring 11 mm in thickness. Jeff Hardy MD Objective Remarks GENERAL: This is a well-nourished, well-developed patient, in no apparent distress. CARDIOVASCULAR: Normal rate and regular rhythm without murmurs, gallops, or rubs. RESPIRATORY: Good respiratory efforts. Breath sounds equal and clear to auscultation bilaterally. GASTROINTESTINAL: Abdomen soft, non-tender, non-distended. Normal active bowel sounds MUSCULOSKELETAL: Tender to palpation over the upper back/thoracic region. She also endorsed tenderness to palpation over the left lower ribs. NEURO: Alert & Oriented x4 to person, place, time, situation. Moves all ext x4 PSYCH: Appropriate mood and affect. A/P Problem List: (1) Metastatic disease ICD Code: C79.9 Status: Acute Plan: Patient has multiple bony lytic lesions concerning for metastatic disease , soft tissue mass about the ribs. She also has an adnexal mass. -Appreciate oncology following. Less likely to be ovarian in origin. CT- guided biopsy of the soft tissue mass arising from the rib cage. -tumor markers ordered. (2) Intractable pain ICD Code: R52 Status: Acute Plan: Patient has multiple bony lytic lesions concerning for metastatic disease , soft tissue mass about the ribs. She also has an adnexal mass. - Pain control. Increase oral long-acting morphine. IV morphine for breakthrough. Add Flexeril as needed -Appreciate oncology following. Less likely to be ovarian in origin. CT- guided biopsy of the soft tissue mass arising from the rib cage. (3) Lytic lesion of bone on x-ray ICD Code: M89.9 Status: Acute Plan: See treatment as above. (4) Adnexal mass ICD Code: N94.9 Status: Acute Plan: Probably metastatic disease. See workup as above. (5) Back pain ICD Code: M54.9 Status: Acute (6) Hypokalemia ICD Code: E87.6 Status: Acute (7) Hyponatremia ICD Code: E87.1 Status: Acute Plan: Probably hypovolemic hyponatremia from lack of oral intake. I improving. V fluid for hydration. Follow labs in AM. (8) Tobacco abuse ICD Code: Z72.0 Status: Acute Plan: The patient was counseled to quit. (9) Alcohol abuse ICD Code: F10.10 Status: Acute Plan: [facility] protocol Patient counseled on the adverse effects of alcohol abuse. (10) Hypertension ICD Code: I10 Status: Acute Plan: Start Norvasc, clonidine as needed. Assessment and Plan Admit to inpatient for probable cancer workup. Uncontrolled hypertension, intractable pain and electrolyte abnormalities. Carlyle Xiong MD December 18, 2016 11:06
[2016-12-18 12:00] VITALS: BP 139/75; PULSE 89; RESP 20; TEMP 97.3; O2SAT 95
[2016-12-18] MEDS: NICOTINE 21 MG/24 HR PATCH T-DERMAL SCH (14:53)
--- NOTE | 2016-12-18 15:09 | EKG ---
Date Performed: 12/17/2016 Time Performed: 10:01:56 PTAGE: 71 years EKG: Sinus rhythm Possible left atrial abnormality Since previous tracing, no significant change noted Borderline ECG PREVIOUS TRACING : 10/05/2008 21.08 DOCTOR: Temitope Jackson Interpretating Date/Time 12/18/2016 15:08:21
[2016-12-18 16:00] VITALS: BP 198/99; PULSE 102; RESP 20; TEMP 97.5; O2SAT 94
[2016-12-18 20:00] VITALS: BP 141/93; PULSE 113; RESP 18; TEMP 97.9; O2SAT 94
[2016-12-19] VITALS: BP 154/90; PULSE 97; RESP 16; TEMP 96.7; O2SAT 96
[2016-12-19] MEDS: HEPARIN SODIUM - SQ 10,000 UNITS/ML VIAL SQ SCH ×2 (00:50→13:00)
[2016-12-19] MEDS: MORPHINE SULFATE 30 MG CONTROLLED RELEASE TAB PO SCH ×3 (06:16→22:29)
[2016-12-19 07:10] LABS: HEMATOCRIT 35.5 % (35.0-46.0); MEAN CELL VOLUME 93.8 FL (80.0-100.0); MEAN CORPUSCULAR HEMOGLOBIN 32.3 PG (27.0-34.0); MEAN CORPUSCULAR HGB CONC 34.4 % (32.0-36.0); PLATELET COUNT 433 TH/MM3 (150-450); RED BLOOD COUNT 3.79 MIL/MM3 (4.00-5.30); RED CELL DISTRIBUTION WIDTH 11.3 % (11.6-17.2); REVIEW FLAG FINAL; WHITE BLOOD COUNT 7.2 TH/MM3 (4.0-11.0)
[2016-12-19 07:14] LABS: POTASSIUM 3.4 MEQ/L (3.5-5.1)
[2016-12-19 07:20] LABS: BICARBONATE 28.2 MEQ/L (21.0-32.0)
[2016-12-19 08:00] VITALS: BP 154/90; PULSE 97; RESP 20; TEMP 98.3; O2SAT 96
[2016-12-19] MEDS ORDERED: POTASSIUM CHLORIDE 10 MEQ CONTROLLED RELEASE TAB PO ONE (09:00)
[2016-12-19] MEDS: REMOVE OLD PATCH T-DERMAL SCH (09:00)
[2016-12-19] MEDS: NICOTINE 21 MG/24 HR PATCH T-DERMAL SCH (09:28)
[2016-12-19] MEDS: DOCUSATE SODIUM 100 MG CAP PO SCH ×2 (09:28→21:00)
[2016-12-19] MEDS: MULTIVITAMINS/MINERALS THERAPEUTIC TAB PO SCH (09:28)
[2016-12-19] MEDS: amLODIPine BESYLATE 5 MG TAB PO SCH (09:28)
[2016-12-19] MEDS: LORazepam 1 MG TAB PO PRN (09:28)
[2016-12-19 09:37] LABS: ALBUMIN SPE 3.92 GM/DL (3.50-5.00); ALPHA 1 GLOBULIN 0.27 GM/DL (0.11-0.29); ALPHA 2 GLOBULIN 0.85 GM/DL (0.22-1.00); BETA GLOBULINS (SPE) 0.65 GM/DL (0.53-1.03)
[2016-12-19] MEDS: MORPHINE SULFATE 4 MG/ML INJ IV PUSH PRN ×3 (09:37→21:03)
[2016-12-19] MEDS: SODIUM CHLORIDE 0.9% FLUSH 10 ML FLUSH IV FLUSH SCH ×2 (09:42→21:00)
--- NOTE | 2016-12-19 11:39 | HHI.PR ---
Subjective Remarks Patient reports that her pain is slightly better at rest but still having significant pain upper back pain and left lower rate pains with any movements. No shortness of breath. Objective Vitals Vital Signs Date Time Temp Pulse Resp B/P Pulse Ox O2 Delivery O2 Flow Rate FiO2 12/19/16 09:43 18 12/19/16 08:00 98.3 97 20 154/90 96 12/19/16 07:39 18 12/19/16 00:00 96.7 97 16 154/90 96 12/18/16 20:00 97.9 113 18 141/93 94 12/18/16 16:00 97.5 102 20 198/99 94 12/18/16 12:00 97.3 89 20 139/75 95 I/O 12/18/16 12/18/16 12/18/16 12/19/16 12/19/16 12/19/16 06:59 14:59 22:59 06:59 14:59 22:59 Intake Total 1990 ml 240 ml 380 ml Balance 1990 ml 240 ml 380 ml Intake Oral 800 ml 240 ml 380 ml IV Total 1191 ml # Voids 2 1 2 # Bowel Movements 0 0 Result Diagram: 12/19/16 0640 12/19/16 0640 Objective Remarks GENERAL: This is a well-nourished, well-developed patient, in no apparent distress. CARDIOVASCULAR: Normal rate and regular rhythm without murmurs, gallops, or rubs. RESPIRATORY: Good respiratory efforts. Breath sounds equal and clear to auscultation bilaterally. GASTROINTESTINAL: Abdomen soft, non-tender, non-distended. Normal active bowel sounds MUSCULOSKELETAL: Tender to palpation over the upper back/thoracic region. She also endorsed tenderness to palpation over the left lower ribs. NEURO: Alert & Oriented x4 to person, place, time, situation. Moves all ext x4 PSYCH: Appropriate mood and affect. A/P Problem List: (1) Metastatic disease ICD Code: C79.9 Status: Acute Plan: Patient has multiple bony lytic lesions concerning for metastatic disease , soft tissue mass about the ribs. She also has an adnexal mass. -Appreciate oncology following. Less likely to be ovarian in origin. CT- guided biopsy of the soft tissue mass arising from the rib cage. -tumor markers ordered. (2) Intractable pain ICD Code: R52 Status: Acute Plan: Patient has multiple bony lytic lesions concerning for metastatic disease , soft tissue mass about the ribs. She also has an adnexal mass. - Pain control. Increase oral long-acting morphine to 40 mg every 8 hours. IV morphine for breakthrough. Flexeril as needed - Appreciate oncology following. Less likely to be ovarian in origin. CT- guided biopsy of the soft tissue mass arising from the rib cage ordered. (3) Lytic lesion of bone on x-ray ICD Code: M89.9 Status: Acute Plan: See treatment as above. (4) Adnexal mass ICD Code: N94.9 Status: Acute Plan: Probably metastatic disease. See workup as above. (5) Back pain ICD Code: M54.9 Status: Acute (6) Hypokalemia ICD Code: E87.6 Status: Acute Plan: Replace and monitor. (7) Hyponatremia ICD Code: E87.1 Status: Acute Plan: Probably hypovolemic hyponatremia from lack of oral intake. Improving. Follow labs in AM. (8) Tobacco abuse ICD Code: Z72.0 Status: Acute Plan: The patient was counseled to quit. Nicotine patch. (9) Alcohol abuse ICD Code: F10.10 Status: Acute Plan: CIWA protocol Patient counseled on the adverse effects of alcohol abuse. (10) Hypertension ICD Code: I10 Status: Acute Plan: Much improved with Norvasc, clonidine as needed. Carlyle Xiong MD December 19, 2016 11:38
[2016-12-19 12:00] VITALS: BP 165/79; PULSE 108; RESP 20; TEMP 98.6; O2SAT 96
--- NOTE | 2016-12-19 12:37 | PD.RAD ---
Post Procedure Progress Note Pre Procedure Diagnosis: (1) Metastatic disease Post Procedure Diagnosis: (1) Metastatic disease Procedure Date: December 19, 2016 Supervising Radiologist: Oscar Khan Estimated blood loss: 2cc Anesthesia: Local, Analgesia Plan of Activity Patient to Unit: Nursing Unit Patient Condition: Fair Additional Comments: CT guide biopsy of the destructive lesion in the medial T11 rib on the right. 2 18ga. core samples obtained. follow up ct images looked good Full dictated report to follow See PACS Report for procedural detail/treatment Oscar Khan MD December 19, 2016 12:37
[2016-12-19] MEDS ORDERED: LIDOCAINE 1%/EPINEPHrine 1:100,000 SOLN 30 ML VIAL OTHER ONE (12:52)
[2016-12-19] MEDS: MORPHINE SULFATE 15 MG CONTROLLED RELEASE TAB PO SCH ×2 (14:00→22:29)
--- NOTE | 2016-12-19 14:04 | RADHPO ---
EXAM DATE/TIME: 12/19/2016 12:09 [facility] COMPARISON: CT PULMONARY ANGIOGRAM, December 17, 2016, 11:23. INDICATIONS : Thoracic 11 soft tissue mass. SEDATION TIME: 30 minutes BIOPSY SITE: Right T 11 MEDICATION(S): 1.) 50 mcg fentanyl (Sublimaze) IV DEVICE(S): 1.) 18 gauge Temno core biopsy needle MEDICAL HISTORY : Rheumatoid arthritis. SURGICAL HISTORY : Right hip replacement. ENCOUNTER: Initial ACUITY: 1 day PAIN SCORE: 0/10 LOCATION: Right thoracic 11 A total of two core specimen(s) were obtained and sent to the laboratory for pathologic evaluation. PROCEDURE: 1. CT guided soft tissuethoracic biopsy. 2. Conscious sedation with continuous EKG and oximetry monitoring. 3. EKG and oximetry remained stable throughout the procedure. Prior to the procedure informed consent was obtained. Any appropriate prior imaging studies were rev iewed. Using automated exposure control and adjustment of the mA and/or kV according to patient size, radiat ion dose was kept as low as reasonably achievable to obtain optimal diagnostic quality images. The site was prepped in a sterile fashion. Full sterile technique was used, including cap, mask, eber rile gloves and gown and a large sterile sheet. Hand hygiene and 2% chlorhexidine and/or betadine/al cohol prep was utilized per protocol for cutaneous antisepsis. The skin and subcutaneous tissues wer e infiltrated with local anesthetic solution. With CT guidance the previously identified target was localized. Biopsy was performed using an 18 gau ge Temno biopsy needle. 2 core samples were obtained. One from the superior aspect of the lesion. A s econd from the inferior aspect of the lesion. Adequate hemostasis was obtained with compression at th e puncture site. Follow-up CT scan reveals no hemorrhage. The patient tolerated the procedure well and there were no complications. The patient was returned to the Radiology Outpatient Unit in stable condition. CONCLUSION: Uncomplicated CT guided biopsy. The destructive lesion involving the T11 rib on the right was biopsie d. Oscar Khan MD on December 19, 2016 at 14:01 Board Certified Radiologist. This report was verified electronically.
--- NOTE | 2016-12-19 15:07 | RADHPO ---
EXAM DATE/TIME: 12/19/2016 14:39 [facility] COMPARISON: CT NEEDLE BIOPSY SOFT TISSUE, RIGHT, December 19, 2016, 12:09. INDICATIONS : Post biopsy MEDICAL HISTORY : None. SURGICAL HISTORY : None. ENCOUNTER: Initial ACUITY: 1 day PAIN SCORE: 0/10 LOCATION: Bilateral chest FINDINGS: A single view of the chest demonstrates no evidence of pneumothorax. There is a mild bibasilar atelec tasis. Heart size is within normal limits. No definite pleural effusions. Otherwise the rest of lung black are grossly clear. There is osteopenia of the bony structures.. CONCLUSION: No evidence of pneumothorax. Bibasilar atelectasis. Robert Berman MD on December 19, 2016 at 15:03 Board Certified Radiologist. This report was verified electronically.
[2016-12-19] MEDS: CYCLOBENZAPRINE HCL 10 MG TAB PO PRN (19:02)
[2016-12-19 20:00] VITALS: BP 146/74; PULSE 115; RESP 20; TEMP 99.7; O2SAT 97
[2016-12-20] VITALS: BP 158/81; PULSE 107; RESP 20; TEMP 99.5; O2SAT 95
[2016-12-20] MEDS: HEPARIN SODIUM - SQ 10,000 UNITS/ML VIAL SQ SCH ×3 (00:16→22:59)
[2016-12-20] MEDS: MORPHINE SULFATE 4 MG/ML INJ IV PUSH PRN ×4 (00:17→18:01)
[2016-12-20] MEDS: MORPHINE SULFATE 15 MG CONTROLLED RELEASE TAB PO SCH ×3 (06:06→23:01)
[2016-12-20] MEDS: MORPHINE SULFATE 30 MG CONTROLLED RELEASE TAB PO SCH ×3 (06:07→23:01)
[2016-12-20 08:00] VITALS: BP 151/93; PULSE 106; RESP 16; TEMP 98.6; O2SAT 95
[2016-12-20] MEDS: REMOVE OLD PATCH T-DERMAL SCH (08:32)
[2016-12-20] MEDS: NICOTINE 21 MG/24 HR PATCH T-DERMAL SCH (08:32)
[2016-12-20] MEDS: SODIUM CHLORIDE 0.9% FLUSH 10 ML FLUSH IV FLUSH SCH ×2 (08:32→22:55)
[2016-12-20] MEDS: DOCUSATE SODIUM 100 MG CAP PO SCH ×2 (08:33→22:55)
[2016-12-20] MEDS: MULTIVITAMINS/MINERALS THERAPEUTIC TAB PO SCH (08:33)
[2016-12-20] MEDS: amLODIPine BESYLATE 5 MG TAB PO SCH (08:33)
[2016-12-20] MEDS: LORazepam 1 MG TAB PO PRN (08:33)
[2016-12-20 11:18] LABS: KAPPA LAMBDA RATIO 1.31 (1.57-3.93)
--- NOTE | 2016-12-20 11:22 | HHI.PR ---
Subjective Remarks Patient becoming more sedentary. She reports having significant pain with movement on her left lower rib. She has not been out of bed. Status post biopsy yesterday. Objective Vitals Vital Signs Date Time Temp Pulse Resp B/P Pulse Ox O2 Delivery O2 Flow Rate FiO2 12/20/16 08:32 18 12/20/16 08:31 18 12/20/16 08:31 16 12/20/16 08:00 98.6 106 16 151/93 95 12/20/16 00:00 99.5 107 20 158/81 95 12/19/16 20:00 99.7 115 20 146/74 97 12/19/16 20:00 99.7 115 20 146/74 97 12/19/16 15:36 18 12/19/16 12:00 98.6 108 20 165/79 96 I/O 12/19/16 12/19/16 12/19/16 12/20/16 12/20/16 12/20/16 06:59 14:59 22:59 06:59 14:59 22:59 Intake Total 380 ml 480 ml 240 ml 120 ml Output Total 100 ml 250 ml Balance 380 ml 480 ml 140 ml -130 ml Intake Oral 380 ml 480 ml 240 ml 120 ml Output Urine Total 100 ml 250 ml # Voids 2 3 2 1 # Bowel Movements 0 0 0 Result Diagram: 12/19/1640 12/19/16 06 Objective Remarks GENERAL: Elderly female in no apparent distress. CARDIOVASCULAR: Normal rate and regular rhythm without murmurs, gallops, or rubs. RESPIRATORY: Good respiratory efforts. Breath sounds equal and clear to auscultation bilaterally. GASTROINTESTINAL: Abdomen soft, non-tender, non-distended. Normal active bowel sounds MUSCULOSKELETAL: Tender to palpation over the upper back/thoracic region. She also endorsed tenderness to palpation over the left lower ribs. NEURO: Alert & Oriented x4 to person, place, time, situation. Moves all ext x4 PSYCH: Appropriate mood and affect. A/P Problem List: (1) Metastatic disease ICD Code: C79.9 Status: Acute Plan: Patient has multiple bony lytic lesions concerning for metastatic disease , soft tissue mass about the ribs. She also has an adnexal mass. -Appreciate oncology following. Less likely to be ovarian in origin. Status post CT-guided biopsy of the soft tissue mass arising from the rib cage. -tumor markers ordered. - Follow pathology (2) Intractable pain ICD Code: R52 Status: Acute Plan: Patient has multiple bony lytic lesions concerning for metastatic disease , soft tissue mass about the ribs. She also has an adnexal mass. - Pain difficult to control. Continue long-acting morphine to 40 mg every 8 hours. IV morphine for breakthrough. Flexeril as needed - Appreciate oncology following. Less likely to be ovarian in origin. CT- guided biopsy of the soft tissue mass arising from the rib cage ordered. - Follow pathology (3) Lytic lesion of bone on x-ray ICD Code: M89.9 Status: Acute Plan: See treatment as above. (4) Adnexal mass ICD Code: N94.9 Status: Acute Plan: Probably metastatic disease. See workup as above. (5) Back pain ICD Code: M54.9 Status: Acute (6) Hypokalemia ICD Code: E87.6 Status: Acute (7) Hyponatremia ICD Code: E87.1 Status: Acute (8) Tobacco abuse ICD Code: Z72.0 Status: Acute Plan: The patient was counseled to quit. Nicotine patch. (9) Alcohol abuse ICD Code: F10.10 Status: Acute (10) Hypertension ICD Code: I10 Status: Acute Plan: Much improved with Norvasc, clonidine as needed. Carlyle Xiong MD December 20, 2016 11:22
[2016-12-20 12:00] VITALS: BP 177/63; PULSE 115; RESP 16; TEMP 98.6; O2SAT 96
[2016-12-20 16:00] VITALS: BP 118/74; PULSE 105; RESP 16; TEMP 98.7; O2SAT 91
[2016-12-20] MEDS: CYCLOBENZAPRINE HCL 10 MG TAB PO PRN (18:03)
[2016-12-20 20:00] VITALS: BP 99/70; PULSE 106; RESP 16; TEMP 99.3; O2SAT 89
[2016-12-20 20:30] VITALS: O2SAT 96
[2016-12-21] VITALS (7 sets, daily range): BP systolic 122–159; BP diastolic 73–80; PULSE 102–113; RESP 18; TEMP 96.7–99.5; O2SAT 93–96
[2016-12-21] MEDS: MORPHINE SULFATE 30 MG CONTROLLED RELEASE TAB PO SCH (06:22)
[2016-12-21] MEDS: MORPHINE SULFATE 15 MG CONTROLLED RELEASE TAB PO SCH (06:22)
[2016-12-21 06:55] LABS: POTASSIUM 3.2 MEQ/L (3.5-5.1)
[2016-12-21 07:00] LABS: BICARBONATE 30.4 MEQ/L (21.0-32.0)
[2016-12-21 07:02] LABS: HEMATOCRIT 34.8 % (35.0-46.0); MEAN CORPUSCULAR HEMOGLOBIN 32.5 PG (27.0-34.0); MEAN CORPUSCULAR HGB CONC 34.2 % (32.0-36.0); PLATELET COUNT 399 TH/MM3 (150-450); RED BLOOD COUNT 3.66 MIL/MM3 (4.00-5.30); RED CELL DISTRIBUTION WIDTH 11.9 % (11.6-17.2); REVIEW FLAG FINAL; WHITE BLOOD COUNT 7.7 TH/MM3 (4.0-11.0)
[2016-12-21] MEDS: REMOVE OLD PATCH T-DERMAL SCH (09:00)
[2016-12-21] MEDS: DOCUSATE SODIUM 100 MG CAP PO SCH ×2 (09:13→20:54)
[2016-12-21] MEDS: MULTIVITAMINS/MINERALS THERAPEUTIC TAB PO SCH (09:13)
[2016-12-21] MEDS: amLODIPine BESYLATE 5 MG TAB PO SCH (09:13)
[2016-12-21] MEDS: NICOTINE 21 MG/24 HR PATCH T-DERMAL SCH (09:14)
[2016-12-21] MEDS: SODIUM CHLORIDE 0.9% FLUSH 10 ML FLUSH IV FLUSH SCH ×2 (09:18→20:54)
[2016-12-21] MEDS ORDERED: POTASSIUM CHLORIDE 10 MEQ CONTROLLED RELEASE TAB PO ONE (09:30)
[2016-12-21] MEDS: MORPHINE SULFATE 4 MG/ML INJ IV PUSH PRN ×3 (09:54→23:02)
[2016-12-21 09:57] LABS: URINE TOTAL PROTEIN TIMED 36.4 MG/DL
--- NOTE | 2016-12-21 11:12 | HHI.PR ---
Subjective Remarks Patient reports that she is still having significant pain with movement. Reports back spasm. She is concerned about getting addicted to the pain medications. Physically she looks more deconditioned Objective Vitals Vital Signs Date Time Temp Pulse Resp B/P Pulse Ox O2 Delivery O2 Flow Rate FiO2 12/21/16 08:54 96.7 102 18 122/73 96 12/21/16 00:00 99.5 104 18 135/76 95 12/20/16 20:30 96 Nasal Cannula 2.00 12/20/16 20:00 99.3 106 16 99/70 89 12/20/16 18:06 18 12/20/16 16:00 98.7 105 16 118/74 91 12/20/16 14:39 18 12/20/16 14:39 18 12/20/16 12:00 98.6 115 16 177/63 96 I/O 12/20/16 12/20/16 12/20/16 12/21/16 12/21/16 12/21/16 07:00 15:00 23:00 07:00 15:00 23:00 Intake Total 450 ml 120 ml 150 ml Output Total 250 ml 200 ml Balance 200 ml 120 ml -50 ml Intake Oral 450 ml 120 ml 150 ml Output Urine Total 250 ml 200 ml # Voids 4 1 # Bowel Movements 0 Result Diagram: 12/21/16 0600 12/21/16 0600 Imaging Last Impressions Soft Tissue Biopsy 12/19/16 0000 Signed Impressions: Service Date/Time: Monday, December 19, 2016 12:09 - CONCLUSION: Uncomplicated CT guided biopsy. The destructive lesion involving the T11 rib on the right was biopsied. Oscar Khan MD Chest X-Ray 12/19/16 0000 Signed Impressions: Service Date/Time: Monday, December 19, 2016 14:39 - CONCLUSION: No evidence of pneumothorax. Bibasilar atelectasis. Robert Berman MD CT Angiography 12/17/16 0953 Signed Impressions: Service Date/Time: Saturday, December 17, 2016 11:23 - CONCLUSION: 1. Bibasilar patchy densities likely atelectasis. 2. No evidence for pulmonary embolism. 3. Metastatic lesions involving thoracic spine and right 11th ribs. Jeff Hardy MD Abdomen/Pelvis CT 12/17/16 0000 Signed Impressions: Service Date/Time: Saturday, December 17, 2016 11:23 - CONCLUSION: 1. Metastatic lesion to the left posterior acetabulum. 2. Left adnexal mass measures 4.0 x 2.7 cm could be ovarian in etiology. Pelvic sonogram may be warranted. 3. Wall thickening involving the anterior urinary bladder measuring 11 mm in thickness. Jeff Hardy MD Objective Remarks GENERAL: Elderly female in no apparent distress. CARDIOVASCULAR: Normal rate and regular rhythm without murmurs, gallops, or rubs. RESPIRATORY: Good respiratory efforts. Breath sounds equal and clear to auscultation bilaterally. GASTROINTESTINAL: Abdomen soft, non-tender, non-distended. Normal active bowel sounds MUSCULOSKELETAL: Marked tenderness to palpation over the upper back/thoracic region. She also endorsed tenderness to palpation over the left lower ribs. NEURO: Alert & Oriented x4 to person, place, time, situation. Moves all ext x4 PSYCH: Appropriate mood and affect. A/P Problem List: (1) Metastatic disease ICD Code: C79.9 Status: Acute Plan: Patient has multiple bony lytic lesions concerning for metastatic disease , soft tissue mass about the ribs. She also has an adnexal mass. -Appreciate oncology following. Less likely to be ovarian in origin. Status post CT-guided biopsy of the soft tissue mass arising from the rib cage. -tumor markers ordered. - Follow pathology (2) Intractable pain ICD Code: R52 Status: Acute Plan: Patient has multiple bony lytic lesions concerning for metastatic disease , soft tissue mass about the ribs. She also has an adnexal mass. - Pain difficult to control. She cannot ambulate. Continue long-acting morphine to 40 mg every 8 hours. Add fentanyl patch 25 g every 3 days. IV morphine for breakthrough. Increase Flexeril to 10 mg every 8 hours as needed. - Patient's pain has been very difficult to control. She cannot ambulate due to the pain. If no improvement with fentanyl, can consider consulting palliative care for support and pain control. - Follow pathology (3) Lytic lesion of bone on x-ray ICD Code: M89.9 Status: Acute Plan: See treatment as above. (4) Adnexal mass ICD Code: N94.9 Status: Acute Plan: Probably metastatic disease. See workup as above. (5) Back pain ICD Code: M54.9 Status: Acute (6) Hypokalemia ICD Code: E87.6 Status: Acute (7) Hyponatremia ICD Code: E87.1 Status: Acute (8) Tobacco abuse ICD Code: Z72.0 Status: Acute Plan: The patient was counseled to quit. Nicotine patch. (9) Alcohol abuse ICD Code: F10.10 Status: Acute (10) Hypertension ICD Code: I10 Status: Acute Plan: Much improved with Norvasc, clonidine as needed. Discharge Planning Discharge pending better pain control and pathology report. Carlyle Xiong MD December 21, 2016 11:12
[2016-12-21] MEDS ORDERED: fentaNYL 25 MCG/HR PATCH T-DERMAL SCH (11:15)
[2016-12-21] MEDS ORDERED: fentaNYL 50 MCG/HR PATCH TOPICAL SCH ×2 (12:00→13:28)
[2016-12-21] MEDS ORDERED: REMOVE OLD DURAGESIC (FENTANYL) PATCH T-DERMAL SCH (12:00)
[2016-12-21] MEDS: fentaNYL 50 MCG/HR PATCH TOPICAL SCH (13:31)
[2016-12-21] MEDS: HEPARIN SODIUM - SQ 10,000 UNITS/ML VIAL SQ SCH (13:34)
[2016-12-21] MEDS: REMOVE OLD DURAGESIC (FENTANYL) PATCH T-DERMAL SCH (13:36)
[2016-12-21] MEDS: CYCLOBENZAPRINE HCL 10 MG TAB PO PRN (15:54)
--- NOTE | 2016-12-21 17:59 | PD.ONC.PN ---
Subjective Subjective Remarks C/O back pain and spasms Objective Data Date Time Temp Pulse Resp B/P Pulse Ox O2 Delivery O2 Flow Rate FiO2 12/21/16 16:12 97.6 104 18 129/74 96 12/21/16 14:35 18 12/21/16 13:00 97.8 105 18 136/80 94 12/21/16 09:59 18 12/21/16 08:54 96.7 102 18 122/73 96 12/21/16 00:00 99.5 104 18 135/76 95 12/20/16 20:30 96 Nasal Cannula 2.00 12/20/16 20:00 99.3 106 16 99/70 89 12/21/16 12/21/16 12/21/16 07:00 15:00 23:00 Intake Total 150 ml 960 ml Output Total 200 ml Balance -50 ml 960 ml Result Diagram: 12/21/16 0600 12/21/16 0600 Laboratory Results Laboratory Tests Test 12/21/16 06:00 White Blood Count 7.7 TH/MM3 Red Blood Count 3.66 MIL/MM3 Hemoglobin 11.9 GM/DL Hematocrit 34.8 % Mean Corpuscular Volume 95.0 FL Mean Corpuscular Hemoglobin 32.5 PG Mean Corpuscular Hemoglobin 34.2 % Concent Red Cell Distribution Width 11.9 % Platelet Count 399 TH/MM3 Mean Platelet Volume 7.4 FL Sodium Level 136 MEQ/L Potassium Level 3.2 MEQ/L Chloride Level 97 MEQ/L Carbon Dioxide Level 30.4 MEQ/L Anion Gap 9 MEQ/L Blood Urea Nitrogen 10 MG/DL Creatinine 0.45 MG/DL Estimat Glomerular Filtration 137 ML/MIN Rate Random Glucose 95 MG/DL Calcium Level 9.6 MG/DL Magnesium Level 1.9 MG/DL Administered Medications Medications (Trade) Dose Ordered Sig/Hoang Route PRN Reason Start Time Stop Time Status Last Admin Dose Admin Multivitamins/ Minerals Therapeutic (Theragran M Tab) 1 tab DAILY PO 12/18/16 09:00 12/21/16 09:13 Sodium Chloride (NS Flush) 2 ml BID IV FLUSH 12/17/16 21:00 12/21/16 09:18 Docusate Sodium (Colace) 100 mg Q12HR PO 12/17/16 12:30 12/21/16 09:13 Heparin Sodium (Porcine) (Heparin Inj) 5,000 units Q12H SQ 12/17/16 13:00 12/21/16 13:34 Morphine Sulfate (Morphine Inj) 4 mg Q3H PRN IV PUSH BREAKTHROUGH PAIN 12/17/16 12:45 12/21/16 09:54 Lorazepam (Ativan) 1 mg Q4H PRN PO CIWA 8 - 10 12/17/16 16:45 12/20/16 08:33 Clonidine (Catapres) 0.1 mg Q6H PRN PO SBP>160, DBP>90 12/18/16 07:45 12/18/16 07:58 Amlodipine Besylate (Norvasc) 5 mg DAILY PO 12/18/16 09:00 12/21/16 09:13 Cyclobenzaprine HCl (Flexeril) 5 mg Q8H PRN PO MUSCLE SPASM 12/18/16 09:00 12/21/16 15:54 Nicotine (Habitrol 21 Mg Patch.24 Hr) 1 patch DAILY T-DERMAL 12/18/16 14:30 12/21/16 09:14 Miscellaneous Information 1 DAILY T-DERMAL 12/19/16 09:00 12/21/16 09:00 Fentanyl (Duragesic 50 Mcg Patch.72 Hr) 1 patch Q72H TOPICAL 12/21/16 14:00 12/21/16 13:31 Objective Remarks GENERAL: Well-nourished, well-developed patient. SKIN: Warm and dry. HEAD: Normocephalic. EYES: No scleral icterus. No injection or drainage. NECK: Supple, trachea midline. No JVD or lymphadenopathy. LYMPHATIC: No adenopathy. CARDIOVASCULAR: Regular rate and rhythm without murmurs. RESPIRATORY: Breath sounds equal bilaterally. No accessory muscle use. GASTROINTESTINAL: Abdomen soft, non-tender, nondistended. EXTREMITIES: No cyanosis, or edema. NEUROLOGICAL: No obvious focal deficit. Awake, alert, and oriented x3. . Assessment/Plan Problem List: (1) Metastatic disease Status: Acute Plan: Path report reviewed with pt. 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 D/W pt and friend that she has mets UB ca. She is lot of pain. Narcotics are not controlling the pain. I recommend XRT consult for palliative XRT to spine mets. Transfer to [facility]. Consult Urology for cystoscopy to confirm UB as primary. Dr Lindsey will follow her at [facility] [place]. D/W Dr Xiong. he will put the above orders. Wu Reyes MD December 21, 2016 17:59
[2016-12-22] VITALS: BP 132/60; PULSE 105; RESP 17; TEMP 97.8; O2SAT 96
[2016-12-22] MEDS: HEPARIN SODIUM - SQ 10,000 UNITS/ML VIAL SQ SCH ×2 (01:00→13:33)
[2016-12-22] MEDS: MORPHINE SULFATE 4 MG/ML INJ IV PUSH PRN ×2 (02:15→10:40)
[2016-12-22 04:00] VITALS: BP 145/78; PULSE 116; RESP 18; TEMP 96.8; O2SAT 95
[2016-12-22] MEDS: CYCLOBENZAPRINE HCL 10 MG TAB PO PRN (07:29)
[2016-12-22] MEDS: REMOVE OLD PATCH T-DERMAL SCH (08:14)
[2016-12-22] MEDS: MULTIVITAMINS/MINERALS THERAPEUTIC TAB PO SCH (08:14)
[2016-12-22] MEDS: NICOTINE 21 MG/24 HR PATCH T-DERMAL SCH (08:14)
[2016-12-22] MEDS: DOCUSATE SODIUM 100 MG CAP PO SCH ×2 (08:14→21:22)
[2016-12-22] MEDS: amLODIPine BESYLATE 5 MG TAB PO SCH (08:14)
[2016-12-22] MEDS: SODIUM CHLORIDE 0.9% FLUSH 10 ML FLUSH IV FLUSH SCH ×2 (08:17→21:00)
[2016-12-22 08:46] VITALS: BP 171/73; PULSE 107; RESP 16; TEMP 98.7; O2SAT 92
[2016-12-22] MEDS ORDERED: PADIMATE (CHAPSTICK) 4.5 GM TUBE TOPICAL ONE (11:30)
[2016-12-22 12:00] VITALS: BP 156/76; PULSE 109; RESP 16; TEMP 98.5; O2SAT 97
--- NOTE | 2016-12-22 13:21 | PD.ONC.PN ---
Subjective Subjective Remarks (seen at 10AM) Afebrile overnight. patient resting in bed. She wants to know when she can leave the hospital. She has some pain intermittently in the left upper quadrant. Objective Data Date Time Temp Pulse Resp B/P Pulse Ox O2 Delivery O2 Flow Rate FiO2 12/22/16 08:46 98.7 107 16 171/73 92 12/22/16 04:00 96.8 116 18 145/78 95 12/22/16 02:23 18 12/22/16 00:00 97.8 105 17 132/60 96 12/21/16 21:40 93 Nasal Cannula 2.00 12/21/16 21:13 97.8 113 18 159/73 96 12/21/16 16:12 97.6 104 18 129/74 96 12/21/16 14:35 18 Result Diagram: 12/21/16 0600 12/21/16 0600 Administered Medications Medications (Trade) Dose Ordered Sig/Hoang Route PRN Reason Start Time Stop Time Status Last Admin Dose Admin Multivitamins/ Minerals Therapeutic (Theragran M Tab) 1 tab DAILY PO 12/18/16 09:00 12/22/16 08:14 Sodium Chloride (NS Flush) 2 ml BID IV FLUSH 12/17/16 21:00 12/22/16 08:17 Docusate Sodium (Colace) 100 mg Q12HR PO 12/17/16 12:30 12/22/16 08:14 Heparin Sodium (Porcine) (Heparin Inj) 5,000 units Q12H SQ 12/17/16 13:00 12/22/16 01:00 Morphine Sulfate (Morphine Inj) 4 mg Q3H PRN IV PUSH BREAKTHROUGH PAIN 12/17/16 12:45 12/22/16 10:40 Lorazepam (Ativan) 1 mg Q4H PRN PO CIWA 8 - 10 12/17/16 16:45 12/20/16 08:33 Clonidine (Catapres) 0.1 mg Q6H PRN PO SBP>160, DBP>90 12/18/16 07:45 12/18/16 07:58 Amlodipine Besylate (Norvasc) 5 mg DAILY PO 12/18/16 09:00 12/22/16 08:14 Cyclobenzaprine HCl (Flexeril) 5 mg Q8H PRN PO MUSCLE SPASM 12/18/16 09:00 12/22/16 07:29 Nicotine (Habitrol 21 Mg Patch.24 Hr) 1 patch DAILY T-DERMAL 12/18/16 14:30 12/22/16 08:14 Miscellaneous Information 1 DAILY T-DERMAL 12/19/16 09:00 12/22/16 08:14 Fentanyl (Duragesic 50 Mcg Patch.72 Hr) 1 patch Q72H TOPICAL 12/21/16 14:00 12/21/16 13:31 Objective Remarks GENERAL: Elderly female, lying in bed watching tv SKIN: Warm and dry. HEAD: Normocephalic. EYES: No scleral icterus. No injection or drainage. NECK: Supple, trachea midline. CARDIOVASCULAR: Regular rate and rhythm RESPIRATORY: Breath sounds equal bilaterally. No accessory muscle use. GASTROINTESTINAL: Abdomen soft, non-tender, nondistended. EXTREMITIES: No cyanosis NEUROLOGICAL: No obvious focal deficit. Awake, alert, and oriented x3. Assessment/Plan Problem List: (1) Metastatic disease Status: Acute Plan: 12/22: await radiation oncology and urology consults. continue supportive care. continue morphine. questions answered 12/21 Path report reviewed with pt. 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 D/W pt and friend that she has mets UB ca. She is in lot of pain. Narcotics are not controlling the pain. I recommend XRT consult for palliative XRT to spine mets. Transfer to [facility] [place]. Consult Urology for cystoscopy to confirm UB as primary. Attending Statement c/o back pain. D/W DR Polo. Will start short course radiation soon. await input continue pain meds. Suzan Diez December 22, 2016 13:21 Wu Reyes MD December 22, 2016 22:29
--- NOTE | 2016-12-22 13:54 | HHI.PR ---
Subjective Remarks + pain- rib cage - pain meds helping but not enough denies any shortness of breath Objective Vitals Vital Signs Date Time Temp Pulse Resp B/P Pulse Ox O2 Delivery O2 Flow Rate FiO2 12/22/16 08:46 98.7 107 16 171/73 92 12/22/16 04:00 96.8 116 18 145/78 95 12/22/16 02:23 18 12/22/16 00:00 97.8 105 17 132/60 96 12/21/16 21:40 93 Nasal Cannula 2.00 12/21/16 21:13 97.8 113 18 159/73 96 12/21/16 16:12 97.6 104 18 129/74 96 12/21/16 14:35 18 I/O 12/21/16 12/21/16 12/21/16 12/22/16 12/22/16 12/22/16 07:00 15:00 23:00 07:00 15:00 23:00 Intake Total 150 ml 1200 ml Output Total 200 ml Balance -50 ml 1200 ml Intake Oral 150 ml 1200 ml Output Urine Total 200 ml # Voids 4 1 Result Diagram: 12/21/16 0600 12/21/16 0600 Imaging Last Impressions Soft Tissue Biopsy 12/19/16 0000 Signed Impressions: Service Date/Time: Monday, December 19, 2016 12:09 - CONCLUSION: Uncomplicated CT guided biopsy. The destructive lesion involving the T11 rib on the right was biopsied. Oscar Khan MD Chest X-Ray 12/19/16 0000 Signed Impressions: Service Date/Time: Monday, December 19, 2016 14:39 - CONCLUSION: No evidence of pneumothorax. Bibasilar atelectasis. Robert Berman MD CT Angiography 12/17/16 0953 Signed Impressions: Service Date/Time: Saturday, December 17, 2016 11:23 - CONCLUSION: 1. Bibasilar patchy densities likely atelectasis. 2. No evidence for pulmonary embolism. 3. Metastatic lesions involving thoracic spine and right 11th ribs. Jeff Hardy MD Abdomen/Pelvis CT 12/17/16 0000 Signed Impressions: Service Date/Time: Saturday, December 17, 2016 11:23 - CONCLUSION: 1. Metastatic lesion to the left posterior acetabulum. 2. Left adnexal mass measures 4.0 x 2.7 cm could be ovarian in etiology. Pelvic sonogram may be warranted. 3. Wall thickening involving the anterior urinary bladder measuring 11 mm in thickness. Jeff Hardy MD Objective Remarks awake and alert anicteric no nuchal rigidity lungs- no rales regular rhythm, tachycardic abdomen-soft nontender extremities no edema A/P Problem List: (1) Metastatic disease ICD Code: C79.9 Status: Acute (2) Intractable pain ICD Code: R52 Status: Acute (3) Lytic lesion of bone on x-ray ICD Code: M89.9 Status: Acute (4) Adnexal mass ICD Code: N94.9 Status: Acute (5) Back pain ICD Code: M54.9 Status: Acute (6) Hypokalemia ICD Code: E87.6 Status: Acute (7) Hyponatremia ICD Code: E87.1 Status: Acute (8) Tobacco abuse ICD Code: Z72.0 Status: Acute (9) Alcohol abuse ICD Code: F10.10 Status: Acute (10) Hypertension ICD Code: I10 Status: Acute Assessment and Plan 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 She also has an adnexal mass. -Appreciate oncology following. Less likely to be ovarian in origin. Status post CT-guided biopsy of the soft tissue mass arising from the rib cage. -tumor markers ordered. - Oncology ff- Radiation oncology service consulted. Urology consulted Intractable pain ICD Code: R52 Status: Acute Plan: Patient has multiple bony lytic lesions concerning for metastatic disease , soft tissue mass about the ribs. She also has an adnexal mass. - Pain difficult to control. She cannot ambulate. Continue long-acting morphine to 40 mg every 8 hours. Add fentanyl patch 25 g every 3 days. IV morphine for breakthrough. Increase Flexeril to 10 mg every 8 hours as needed. - Patient's pain has been very difficult to control. She cannot ambulate due to the pain. If no improvement with fentanyl, can consider consulting palliative care for support and pain control. - Increase pain meds Adnexal mass ICD Code: N94.9 Status: Acute Plan: Probably metastatic disease. See workup as above. Hypokalemia ICD Code: E87.6 Status: Acute replace po and monitor Hyponatremia- improved- ICD Code: E87.1 Status: Acute Tobacco abuse ICD Code: Z72.0 Status: Acute Plan: The patient was counseled to quit. Nicotine patch. Alcohol abuse ICD Code: F10.10 Status: Acute Hypertension, tachycardic- pain contributing factor Status: Acute Plan: Much improved with Norvasc, clonidine as needed. Add Lopressor 12.5 mg po q 8 Discharge Planning Discharge pending better pain control and pathology report. Shelbie Whelan MD December 22, 2016 13:54 Shelbie Whelan MD December 22, 2016 13:54
[2016-12-22] MEDS: METOPROLOL TARTRATE 25 MG TAB PO SCH ×2 (15:40→21:22)
[2016-12-22] MEDS: HYDROmorphone HCL PF 1 MG/ML VIAL IV PUSH PRN (15:42)
[2016-12-22 16:00] VITALS: BP 162/77; PULSE 105; RESP 16; TEMP 98.6; O2SAT 96
[2016-12-22 17:55] LABS: BICARBONATE 30.3 MEQ/L (21.0-32.0); POTASSIUM 3.3 MEQ/L (3.5-5.1)
[2016-12-22] MEDS ORDERED: POTASSIUM CHLORIDE 20 MEQ CONTROLLED RELEASE TAB PO ONE (19:30)
[2016-12-22 20:00] VITALS: BP 151/74; PULSE 102; RESP 18; TEMP 99; O2SAT 93
[2016-12-22] MEDS ORDERED: MORPHINE SULFATE 30 MG CONTROLLED RELEASE TAB PO SCH (21:00)
[2016-12-22] MEDS: LORazepam 2 MG/ML VIAL IV PUSH PRN (23:08)
[2016-12-23] VITALS: BP 163/85; PULSE 106; RESP 18; TEMP 98.5; O2SAT 93
[2016-12-23] MEDS: HEPARIN SODIUM - SQ 10,000 UNITS/ML VIAL SQ SCH (01:00)
[2016-12-23 05:00] VITALS: BP 165/87; PULSE 103; RESP 18; TEMP 97; O2SAT 98
[2016-12-23] MEDS: CYCLOBENZAPRINE HCL 10 MG TAB PO PRN (05:49)
[2016-12-23] MEDS: METOPROLOL TARTRATE 25 MG TAB PO SCH ×3 (05:49→20:35)
--- NOTE | 2016-12-23 07:21 | PD.ONC.PN ---
Subjective Subjective Remarks My oain is better. c/o weakness. Objective Data Date Time Temp Pulse Resp B/P Pulse Ox O2 Delivery O2 Flow Rate FiO2 12/23/16 05:00 97.0 103 18 165/87 98 12/23/16 00:00 98.5 106 18 163/85 93 12/22/16 22:54 18 12/22/16 20:00 99.0 102 18 151/74 93 12/22/16 16:00 98.6 105 16 162/77 96 12/22/16 12:00 98.5 109 16 156/76 97 12/22/16 08:46 98.7 107 16 171/73 92 12/23/16 12/23/16 12/23/16 07:00 15:00 23:00 Intake Total 360 ml Balance 360 ml Result Diagram: 12/21/16 0600 12/22/16 1635 Laboratory Results Laboratory Tests Test 12/22/16 16:35 Sodium Level 134 MEQ/L Potassium Level 3.3 MEQ/L Chloride Level 96 MEQ/L Carbon Dioxide Level 30.3 MEQ/L Anion Gap 8 MEQ/L Blood Urea Nitrogen 10 MG/DL Creatinine 0.50 MG/DL Estimat Glomerular Filtration 121 ML/MIN Rate Random Glucose 125 MG/DL Calcium Level 9.7 MG/DL Administered Medications Medications (Trade) Dose Ordered Sig/Hoang Route PRN Reason Start Time Stop Time Status Last Admin Dose Admin Multivitamins/ Minerals Therapeutic (Theragran M Tab) 1 tab DAILY PO 12/18/16 09:00 12/22/16 08:14 Sodium Chloride (NS Flush) 2 ml BID IV FLUSH 12/17/16 21:00 12/22/16 21:00 Docusate Sodium (Colace) 100 mg Q12HR PO 12/17/16 12:30 12/22/16 21:22 Heparin Sodium (Porcine) (Heparin Inj) 5,000 units Q12H SQ 12/17/16 13:00 12/22/16 13:33 Lorazepam (Ativan) 1 mg Q4H PRN PO CIWA 8 - 10 12/17/16 16:45 12/20/16 08:33 Lorazepam (Ativan Inj) 1 mg Q4H PRN IV PUSH CIWA 8 - 10 12/17/16 16:45 12/22/16 23:08 Clonidine (Catapres) 0.1 mg Q6H PRN PO SBP>160, DBP>90 12/18/16 07:45 12/18/16 07:58 Amlodipine Besylate (Norvasc) 5 mg DAILY PO 12/18/16 09:00 12/22/16 08:14 Cyclobenzaprine HCl (Flexeril) 5 mg Q8H PRN PO MUSCLE SPASM 12/18/16 09:00 12/23/16 05:49 Nicotine (Habitrol 21 Mg Patch.24 Hr) 1 patch DAILY T-DERMAL 12/18/16 14:30 12/22/16 08:14 Miscellaneous Information 1 DAILY T-DERMAL 12/19/16 09:00 12/22/16 08:14 Fentanyl (Duragesic 50 Mcg Patch.72 Hr) 1 patch Q72H TOPICAL 12/21/16 14:00 12/21/16 13:31 Morphine Sulfate (Oramorph Sr) 30 mg Q12HR PO 12/22/16 21:00 12/22/16 21:22 Hydromorphone HCl (Dilaudid Pf Inj) 0.5 mg Q3H PRN IV PUSH PAIN SCALE 4 TO 10 12/22/16 14:15 12/22/16 15:42 Metoprolol Tartrate (Lopressor) 12.5 mg Q8HR PO 12/22/16 15:00 12/23/16 05:49 Objective Remarks GENERAL: Elderly female, lying in bed watching tv SKIN: Warm and dry. HEAD: Normocephalic. EYES: No scleral icterus. No injection or drainage. NECK: Supple, trachea midline. CARDIOVASCULAR: Regular rate and rhythm RESPIRATORY: Breath sounds equal bilaterally. No accessory muscle use. GASTROINTESTINAL: Abdomen soft, non-tender, nondistended. EXTREMITIES: No cyanosis NEUROLOGICAL: No obvious focal deficit. Awake, alert, and oriented x3. Assessment/Plan Problem List: (1) Metastatic disease Status: Acute Plan: 12/23 DR Polo saw her yesterday. Will start XRT soon. after XRT willl give her chemo cisplatin and gemzar. Aaawait input for cystoscopy. 12/22: await radiation oncology and urology consults. continue supportive care. continue morphine. questions answered 12/21 Path report reviewed with pt. 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 D/W pt and friend that she has mets UB ca. She is in lot of pain. Narcotics are not controlling the pain. I recommend XRT consult for palliative XRT to spine mets. Transfer [place] [facility] [place]. Consult Urology for cystoscopy to confirm UB as primary. Wu Reyes MD December 23, 2016 07:21
[2016-12-23 08:00] VITALS: BP 140/66; PULSE 93; RESP 17; TEMP 98.1; O2SAT 98
--- NOTE | 2016-12-23 08:46 | HHI.PR ---
Subjective Remarks patient voiding spontaneously- denies any urgency or incontinence or hematurioa still with pain chest wall, rib cage- left ribs -on exam- with erythema + consitpation but passing lots of flatus Objective Vitals Vital Signs Date Time Temp Pulse Resp B/P Pulse Ox O2 Delivery O2 Flow Rate FiO2 12/23/16 05:00 97.0 103 18 165/87 98 12/23/16 00:00 98.5 106 18 163/85 93 12/22/16 22:54 18 12/22/16 20:00 99.0 102 18 151/74 93 12/22/16 16:00 98.6 105 16 162/77 96 12/22/16 12:00 98.5 109 16 156/76 97 12/22/16 08:46 98.7 107 16 171/73 92 I/O 12/22/16 12/22/16 12/22/16 12/23/16 12/23/16 12/23/16 07:00 15:00 23:00 07:00 15:00 23:00 Intake Total 480 ml 240 ml 360 ml Balance 480 ml 240 ml 360 ml Intake Oral 480 ml 240 ml 360 ml # Voids 1 4 1 1 Result Diagram: 12/21/16 0600 12/22/16 1635 Imaging Last Impressions Soft Tissue Biopsy 12/19/16 0000 Signed Impressions: Service Date/Time: Monday, December 19, 2016 12:09 - CONCLUSION: Uncomplicated CT guided biopsy. The destructive lesion involving the T11 rib on the right was biopsied. Oscar Khan MD Chest X-Ray 12/19/16 0000 Signed Impressions: Service Date/Time: Monday, December 19, 2016 14:39 - CONCLUSION: No evidence of pneumothorax. Bibasilar atelectasis. Robert Berman MD CT Angiography 12/17/16 0953 Signed Impressions: Service Date/Time: Saturday, December 17, 2016 11:23 - CONCLUSION: 1. Bibasilar patchy densities likely atelectasis. 2. No evidence for pulmonary embolism. 3. Metastatic lesions involving thoracic spine and right 11th ribs. Jeff Hardy MD Abdomen/Pelvis CT 12/17/16 0000 Signed Impressions: Service Date/Time: Saturday, December 17, 2016 11:23 - CONCLUSION: 1. Metastatic lesion to the left posterior acetabulum. 2. Left adnexal mass measures 4.0 x 2.7 cm could be ovarian in etiology. Pelvic sonogram may be warranted. 3. Wall thickening involving the anterior urinary bladder measuring 11 mm in thickness. Jeff Hardy MD Objective Remarks awake and alert anicteric no nuchal rigidity chest wall tender to touch, left chest wall/ribs area- with erythema- dry. scab - lungs- no rales regular rhythm, tachycardic abdomen-soft nontender extremities no edema moves all extremities equally A/P Problem List: (1) Metastatic disease ICD Code: C79.9 Status: Acute (2) Intractable pain ICD Code: R52 Status: Acute (3) Lytic lesion of bone on x-ray ICD Code: M89.9 Status: Acute (4) Adnexal mass ICD Code: N94.9 Status: Acute (5) Back pain ICD Code: M54.9 Status: Acute (6) Hypokalemia ICD Code: E87.6 Status: Acute (7) Hyponatremia ICD Code: E87.1 Status: Acute (8) Tobacco abuse ICD Code: Z72.0 Status: Acute (9) Alcohol abuse ICD Code: F10.10 Status: Acute (10) Hypertension ICD Code: I10 Status: Acute Assessment and Plan 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 She also has an adnexal mass. -Appreciate oncology following. Less likely to be ovarian in origin. Status post CT-guided biopsy of the soft tissue mass arising from the rib cage. - Oncology ff- Radiation oncology service consulted. - Urology consulted Intractable pain Left sided rib pain x 3 weeks now - with erythema area- appears scab ? Neuralgia - possible previous Zoster ICD Code: R52 Status: Acute Plan: Patient has multiple bony lytic lesions concerning for metastatic disease , soft tissue mass about the ribs. She also has an adnexal mass. - Pain difficult to control. She cannot ambulate. Continue long-acting morphine to 45 mg every q12. fentanyl patch 25 g every 3 days. IV morphine for breakthrough. Dilaudid IV q 3 prn. start po Roxicodone 10 mg q 6 prn - Patient's pain has been very difficult to control. She cannot ambulate due to the pain. -Start Neurontin 300 mg hs Adnexal mass ICD Code: N94.9 Status: Acute Plan: Probably metastatic disease. See workup as above. Hypokalemia recheck today start on KCL po daily Hyponatremia- improved- ICD Code: E87.1 Status: Acute Tobacco abuse ICD Code: Z72.0 Status: Acute Plan: The patient was counseled to quit. Nicotine patch. Alcohol abuse ICD Code: F10.10 Status: Acute Hypertension, pain contributing factor Status: Acute Plan: Much improved with Norvasc, clonidine as needed. Increase Lopressor 25 mg po q 8 manage pain- contributing factor Discharge Planning Discharge pending better pain control and pathology report. Shelbie Whelan MD December 23, 2016 08:45
[2016-12-23] MEDS: REMOVE OLD PATCH T-DERMAL SCH (09:00)
[2016-12-23] MEDS: NICOTINE 21 MG/24 HR PATCH T-DERMAL SCH (09:16)
[2016-12-23] MEDS: amLODIPine BESYLATE 5 MG TAB PO SCH (09:17)
[2016-12-23] MEDS: DOCUSATE SODIUM 100 MG CAP PO SCH ×2 (09:17→20:35)
[2016-12-23] MEDS: MULTIVITAMINS/MINERALS THERAPEUTIC TAB PO SCH (09:17)
[2016-12-23] MEDS: POTASSIUM CHLORIDE 20 MEQ CONTROLLED RELEASE TAB PO SCH (09:20)
[2016-12-23] MEDS: MORPHINE SULFATE 15 MG CONTROLLED RELEASE TAB PO SCH ×2 (09:21→20:34)
[2016-12-23] MEDS: POLYETHYLENE GLYCOL 17 GM PKG PO SCH (09:27)
[2016-12-23] MEDS: SODIUM CHLORIDE 0.9% FLUSH 10 ML FLUSH IV FLUSH SCH ×2 (09:27→20:37)
[2016-12-23] MEDS: HYDROmorphone HCL PF 1 MG/ML VIAL IV PUSH PRN ×2 (10:30→19:13)
[2016-12-23 12:00] VITALS: BP 162/92; PULSE 103; RESP 18; TEMP 99.1
--- NOTE | 2016-12-23 12:41 | PD.CONS ---
[facility] Service Urology Consult Requested By Primary Care Physician Darius Lerma MD Diagnosis: (1) Metastatic disease ICD Code: C79.9 (2) Intractable pain ICD Code: R52 (3) Lytic lesion of bone on x-ray ICD Code: M89.9 (4) Adnexal mass ICD Code: N94.9 (5) Back pain ICD Code: M54.9 (6) Hypokalemia ICD Code: E87.6 (7) Hyponatremia ICD Code: E87.1 (8) Tobacco abuse ICD Code: Z72.0 (9) Alcohol abuse ICD Code: F10.10 (10) Hypertension ICD Code: I10 History of Present Illness 71-year-old pleasant female with recent findings on a CT scan of a thickened bladder wall with biopsy results from a soft tissue mass area near T11 on concerning for transitional cell carcinoma. Patient does have evidence of urinary urgency and frequency but she denies any evidence of gross hematuria. She notes nocturia 2-3 times with incomplete bladder emptying. She denies any infections or stones. She also has pain and allow him the left rib and back and was noted to have lytic lesions on the CT scan. The CT scan also demonstrated an area of concern at the left adnexal area and the biopsy did show just a concern for a Marilyn tumor. Patient is planned to undergo cystoscopy with bladder biopsy in the a.m. Review of Systems Constitutional: DENIES: Diaphoretic episodes Endocrine: DENIES: Abnorml menstrual pattern Ears, nose, mouth, throat: DENIES: Tinnitus Respiratory: DENIES: Apneas Cardiovascular: COMPLAINS OF: Chest pain Gastrointestinal: DENIES: Abdominal pain Genitourinary: DENIES: Abnormal vaginal bleeding Musculoskeletal: COMPLAINS OF: Joint pain Integumentary: COMPLAINS OF: Abnormal pigmentation (history of skin cancer) Immunologic/allergic: DENIES: Eczema Past Family Social History Past Medical History Skin cancer Scoliosis Right hip fracture Past Surgical History Right hip surgery Allergies: Coded Allergies: No Known Allergies (Verified , 12/17/16) Family History Denies any malignancies Social History History of drinking in the past History of smoking in the past Physical Exam Vital Signs Date Time Temp Pulse Resp B/P Pulse Ox O2 Delivery O2 Flow Rate FiO2 12/23/16 08:00 98.1 93 17 140/66 98 12/23/16 05:00 97.0 103 18 165/87 98 12/23/16 00:00 98.5 106 18 163/85 93 12/22/16 22:54 18 12/22/16 20:00 99.0 102 18 151/74 93 12/22/16 16:00 98.6 105 16 162/77 96 Physical Exam GENERAL: This is a well-nourished, well-developed patient, in no apparent distress. SKIN: No rashes, ecchymoses or lesions. Cool and dry. HEAD: Atraumatic. Normocephalic. No temporal or scalp tenderness. EYES: Pupils equal round and reactive. Extraocular motions intact. No scleral icterus. No injection or drainage. ENT: Nose without bleeding, purulent drainage or septal hematoma. Throat without erythema, tonsillar hypertrophy or exudate. Uvula midline. Airway patent. NECK: Trachea midline. No JVD or lymphadenopathy. Supple, nontender, no meningeal signs. CARDIOVASCULAR: Regular rate and rhythm without murmurs, gallops, or rubs. RESPIRATORY: Clear to auscultation. Breath sounds equal bilaterally. No wheezes , rales, or rhonchi. GASTROINTESTINAL: Abdomen soft, non-tender, nondistended. No hepato-splenomegaly , or palpable masses. No guarding. GENITOURINARY: Normal female external genitalia MUSCULOSKELETAL: Extremities without clubbing, cyanosis, or edema. No joint tenderness, effusion, or edema noted. No calf tenderness. Negative Homans sign bilaterally. NEUROLOGICAL: Awake and alert. Cranial nerves II through XII intact. Motor and sensory grossly within normal limits. Five out of 5 muscle strength in all muscle groups. Normal speech. Laboratory Tests Test 12/22/16 16:35 Sodium Level 134 Potassium Level 3.3 Chloride Level 96 Carbon Dioxide Level 30.3 Anion Gap 8 Blood Urea Nitrogen 10 Creatinine 0.50 Estimat Glomerular Filtration 121 Rate Random Glucose 125 Calcium Level 9.7 Result Diagram: 12/21/16 0600 12/22/16 1635 Imaging Last Impressions Soft Tissue Biopsy 12/19/16 0000 Signed Impressions: Service Date/Time: Monday, December 19, 2016 12:09 - CONCLUSION: Uncomplicated CT guided biopsy. The destructive lesion involving the T11 rib on the right was biopsied. Oscar Khan MD Chest X-Ray 12/19/16 0000 Signed Impressions: Service Date/Time: Monday, December 19, 2016 14:39 - CONCLUSION: No evidence of pneumothorax. Bibasilar atelectasis. Robert Berman MD CT Angiography 12/17/16 0953 Signed Impressions: Service Date/Time: Saturday, December 17, 2016 11:23 - CONCLUSION: 1. Bibasilar patchy densities likely atelectasis. 2. No evidence for pulmonary embolism. 3. Metastatic lesions involving thoracic spine and right 11th ribs. Jeff Hardy MD Abdomen/Pelvis CT 12/17/16 0000 Signed Impressions: Service Date/Time: Saturday, December 17, 2016 11:23 - CONCLUSION: 1. Metastatic lesion to the left posterior acetabulum. 2. Left adnexal mass measures 4.0 x 2.7 cm could be ovarian in etiology. Pelvic sonogram may be warranted. 3. Wall thickening involving the anterior urinary bladder measuring 11 mm in thickness. Jeff Hardy MD Assessment and Plan Assessment and Plan 71 year-old female with evidence of lytic lesions around the T 11 area with recent biopsy of soft tissue mass concerning for transitional cell carcinoma. Bladder wall thickening identified on CT scan. Plan is for patient to undergo cystoscopy with bladder biopsy in the a.m. Nothing by mouth after midnight. Risk and benefits discussed and patient is willing to proceed. If biopsy is negative, was suggest Marilyn tumor and evaluation by [facility]. Thank you for the consult and for allowing me to participate in the care of this patient. Ag Betancourt DO December 23, 2016 12:41
[2016-12-23 16:00] VITALS: BP 141/61; PULSE 96; RESP 18; TEMP 97; O2SAT 95
[2016-12-23 18:03] LABS: BICARBONATE 27.2 MEQ/L (21.0-32.0); POTASSIUM 3.4 MEQ/L (3.5-5.1)
[2016-12-23 20:00] VITALS: BP 157/70; PULSE 102; RESP 18; TEMP 98.1; O2SAT 96
[2016-12-23] MEDS: GABAPENTIN 300 MG CAP PO SCH (20:35)
[2016-12-23] MEDS ORDERED: POTASSIUM CHLORIDE 10 MEQ CONTROLLED RELEASE TAB PO ONE (21:15)
[2016-12-23] MEDS: LORazepam 2 MG/ML VIAL IV PUSH PRN (23:05)
[2016-12-24] VITALS (7 sets, daily range): BP systolic 122–176; BP diastolic 58–97; PULSE 96–123; RESP 16–22; TEMP 97.7–99.1; O2SAT 92–98
[2016-12-24] MEDS: LORazepam 2 MG/ML VIAL IV PUSH PRN (04:35)
[2016-12-24] MEDS: METOPROLOL TARTRATE 25 MG TAB PO SCH ×3 (06:00→23:25)
[2016-12-24 07:37] LABS: BICARBONATE 26.2 MEQ/L (21.0-32.0)
[2016-12-24 07:43] LABS: POTASSIUM 3.5 MEQ/L (3.5-5.1)
[2016-12-24] MEDS: SODIUM CHLORIDE 0.9% FLUSH 10 ML FLUSH IV FLUSH SCH ×2 (09:00→19:48)
[2016-12-24] MEDS: REMOVE OLD PATCH T-DERMAL SCH (09:00)
[2016-12-24] MEDS: HYDROmorphone HCL PF 1 MG/ML VIAL IV PUSH PRN ×2 (10:02→18:49)
[2016-12-24] MEDS: NICOTINE 21 MG/24 HR PATCH T-DERMAL SCH (12:03)
[2016-12-24] MEDS: amLODIPine BESYLATE 5 MG TAB PO SCH (12:03)
[2016-12-24] MEDS: DOCUSATE SODIUM 100 MG CAP PO SCH ×2 (12:04→19:48)
[2016-12-24] MEDS: POTASSIUM CHLORIDE 20 MEQ CONTROLLED RELEASE TAB PO SCH (12:04)
[2016-12-24] MEDS: MORPHINE SULFATE 15 MG CONTROLLED RELEASE TAB PO SCH ×2 (12:05→19:48)
[2016-12-24] MEDS: MULTIVITAMINS/MINERALS THERAPEUTIC TAB PO SCH (12:05)
[2016-12-24] MEDS: POLYETHYLENE GLYCOL 17 GM PKG PO SCH (12:05)
--- NOTE | 2016-12-24 12:22 | HHI.PR ---
Subjective Remarks overnight required restraints, cursing saying thoughts that people were raping her, killing her, paranoid thought received Haldol patinet now states she feels alright but gets scared at night Objective Vitals Vital Signs Date Time Temp Pulse Resp B/P Pulse Ox O2 Delivery O2 Flow Rate FiO2 12/24/16 08:00 98.3 109 22 142/60 92 12/24/16 04:47 92 12/24/16 04:00 97.8 98 18 143/85 98 12/24/16 00:00 97.7 96 16 136/75 94 12/23/16 20:00 98.1 102 18 157/70 96 12/23/16 16:00 97.0 96 18 141/61 95 I/O 12/23/16 12/23/16 12/23/16 12/24/16 12/24/16 12/24/16 07:00 15:00 23:00 07:00 15:00 23:00 Intake Total 360 ml 480 ml 120 ml Balance 360 ml 480 ml 120 ml Intake Oral 360 ml 480 ml 120 ml # Voids 1 4 2 Result Diagram: 12/21/16 0600 12/24/16 0631 Objective Remarks awake and alert anicteric no nuchal rigidity chest wall tender to touch, left chest wall/ribs area- with erythema- dry. scab - lungs- no rales regular rhythm, tachycardic abdomen-soft nontender extremities no edema moves all extremities equally A/P Problem List: (1) Metastatic disease ICD Code: C79.9 Status: Acute (2) Intractable pain ICD Code: R52 Status: Acute (3) Lytic lesion of bone on x-ray ICD Code: M89.9 Status: Acute (4) Adnexal mass ICD Code: N94.9 Status: Acute (5) Back pain ICD Code: M54.9 Status: Acute (6) Hypokalemia ICD Code: E87.6 Status: Acute (7) Hyponatremia ICD Code: E87.1 Status: Acute (8) Tobacco abuse ICD Code: Z72.0 Status: Acute (9) Alcohol abuse ICD Code: F10.10 Status: Acute (10) Hypertension ICD Code: I10 Status: Acute Assessment and Plan 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 She also has an adnexal mass. -Appreciate oncology following. Less likely to be ovarian in origin. Status post CT-guided biopsy of the soft tissue mass arising from the rib cage. - Oncology ff- Radiation oncology service consulted. - Urology consulted Intractable pain Left sided rib pain x 3 weeks now - with erythema area- appears scab ? Neuralgia - possible previous Zoster ICD Code: R52 Status: Acute Plan: Patient has multiple bony lytic lesions concerning for metastatic disease , soft tissue mass about the ribs. She also has an adnexal mass. - Pain difficult to control. She cannot ambulate. Continue long-acting morphine to 45 mg every q12. fentanyl patch 25 g every 3 days. IV morphine for breakthrough. Dilaudid IV q 3 prn. start po Roxicodone 10 mg q 6 prn - Patient's pain has been very difficult to control. She cannot ambulate due to the pain. -Start Neurontin 300 mg hs Adnexal mass ICD Code: N94.9 Status: Acute Plan: Probably metastatic disease. See workup as above. Hypokalemia recheck today start on KCL po daily Hyponatremia- improved- ICD Code: E87.1 Status: Acute Tobacco abuse ICD Code: Z72.0 Status: Acute Plan: The patient was counseled to quit. Nicotine patch. Alcohol abuse ICD Code: F10.10 Status: Acute Hypertension, pain contributing factor Status: Acute Plan: Much improved with Norvasc, clonidine as needed. Increase Lopressor 25 mg po q 8 manage pain- contributing factor Acute pscyhosis- sundowning- now - behavior - appropriate psychiatry consult stat head CT now negative. check UA Discharge Planning Discharge pending better pain control and pathology report. Shelbie Whelan MD December 24, 2016 12:22 Shelbie Whelan MD December 24, 2016 12:22
[2016-12-24] MEDS: fentaNYL 50 MCG/HR PATCH TOPICAL SCH (13:20)
[2016-12-24] MEDS: REMOVE OLD DURAGESIC (FENTANYL) PATCH T-DERMAL SCH (14:00)
[2016-12-24] MEDS ORDERED: IOHEXOL 350 MG/ML 10 ML VIAL (for RAD DIAG) IV ONE (14:06)
--- NOTE | 2016-12-24 15:08 | RADRPT ---
EXAM DATE/TIME: 12/24/2016 14:02 [facility] COMPARISON: No previous studies available for comparison. INDICATIONS : Altered mental status; metastatic disease. IV CONTRAST: 100 cc Omnipaque 350 (iohexol) IV RADIATION DOSE: 56.35 CTDIvol (mGy) MEDICAL HISTORY : Carcinoma, not otherwise specified. SURGICAL HISTORY : None. ENCOUNTER: Initial ACUITY: 1 day PAIN SCALE: 0/10 LOCATION: cranial TECHNIQUE: Multiple contiguous axial images were obtained of the head. Using automated exposure control and adj ustment of the mA and/or kV according to patient size, radiation dose was kept as low as reasonably a chievable to obtain optimal diagnostic quality images. FINDINGS: CEREBRUM: The ventricles are normal for age. No evidence of midline shift, cerebral edema or blood products. No extra-axial fluid collections are seen. POSTERIOR FOSSA: The cerebellum and brainstem are intact. The 4th ventricle is midline. The cerebellar pontine angle is unremarkable. EXTRACRANIAL: The visualized portion of the orbits is intact. SKULL: The calvaria is intact. No evidence of skull fracture. POST CONTRAST: No abnormal areas of parenchymal or dural enhancement. No evidence of blood-brain barrier breakdown. CONCLUSION: No evidence of intracranial metastatic disease. Les Pena MD on December 24, 2016 at 15:05 Board Certified Radiologist. This report was verified electronically.
[2016-12-24] MEDS ORDERED: QUEtiapine FUMARATE 25 MG TAB PO ONE (16:00)
[2016-12-24] MEDS: D5-NS + KCL 20 MEQ INJ 1,000 ML IV SCH (18:44)
[2016-12-24] MEDS: GABAPENTIN 300 MG CAP PO SCH (19:47)
--- NOTE | 2016-12-24 19:50 | RC ---
cc: ORA REYES M.D., SRISAWAT COSMA, MIRELA MD ALVAREZ-FARINETTI, ALVARO DATE OF SERVICE: 12/22/2016 REQUESTING PHYSICIAN: Dr. Farrukh Reyes. 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 CHIEF COMPLAINT: Mid back pain. REASON FOR VISIT: The patient is being evaluated for palliative radiotherapy treatment options. HISTORY OF PRESENT ILLNESS: This is a 71-year white female who says that about three weeks ago she started experiencing mid-back pain. She saw a chiropractor, felt good for a little bit, but the pain continued to increase to the point that the patient could not take it any more and decided to come to the hospital for evaluation. When I asked about the pain rating scale, the patient says that prior to coming to the hospital, it was 10/10 and she felt that sometimes it was even more intense than that. The patient denies any issues with urination or control of bowel or bladder movements. Denies any hematuria. Denies any hemoptysis or cough. Denies any previous diagnosis of carcinoma previous to this one. It appears that the patient had been admitted to the hospital and evaluated and was found to have a lytic lesion and she was sent home on Lortab with referral to oncology and it appears Dr. Lindsey saw the patient in the hospital but she had to return due to severe pain which was intractable. The patient has now been transfer from [facility] to [facility] for further evaluation. I have been consulted for possible palliative radiotherapeutic treatment options to her spine. PAST MEDICAL HISTORY: As above. 1. History of right hip surgery. 2. History of arthritis. MEDICATIONS: Medications include 1. Morphine sulfate. 2. Metoprolol. 3. Hydromorphone. 4. Fentanyl. 5. Nicotine. 6. Clonidine. 7. Flumazenil. 8. Lorazepam. ALLERGIES: NO KNOWN DRUG ALLERGIES. FAMILY HISTORY: No history of carcinoma. SOCIAL HISTORY: The patient smokes about six cigarettes per day. She used to smoke a pack of cigarettes per day for many years. EtOH intake socially. REVIEW OF SYSTEMS: CONSTITUTIONAL: Patient with fatigue and decreased appetite. ALLERGIES: The patient has not had a major allergic reaction recently. EYES: Unremarkable. ENT: Unremarkable. NECK: Unremarkable. INTEGUMENTARY: Unremarkable CARDIOVASCULAR: The patient denies any chest pain. RESPIRATORY: Unremarkable. The patient denies any hemoptysis or cough. GASTROINTESTINAL: Unremarkable. Denies any rectal bleeding. GENITOURINARY: Unremarkable. The patient denies any hematuria. No vaginal discharge. MUSCULOSKELETAL: The patient has pain in the upper back which prevents her from walking and it also extends to the left lateral ribs. NEUROLOGICAL: The patient denies any neurological deficits. No decrease in cognitive functions. No signs of increased intracranial pressure. PSYCHIATRIC Denies any suicidal thoughts or depression. ENDOCRINE: Unremarkable. HEMATOLOGIC: Unremarkable. DERMATOLOGIC: Unremarkable. PHYSICAL EXAMINATION: GENERAL: The patient oriented x3 and in no acute distress or discomfort at the present time. VITAL SIGNS: Temperature 96.8, pulse 116, respiratory rate 18, blood pressure 1.8 on pulse ox 95%. LUNGS: To auscultation bilateral lungs were clear to auscultation with slight decreased ventilatory respiratory effort which is equal and bilateral. HEART: Heart was regular rate and rhythm for murmurs. NECK: Palpation of the neck and bilateral supraclavicular areas are free. ABDOMEN: Palpation of the abdominal cavity reveals hepatosplenomegaly. No pain elicited periumbilical masses. Bilateral inguinal areas are free. EXTREMITIES: Lower extremities Without edema bilaterally. NEUROLOGIC: To neurologic examination, there is no motor function deficit detected. There is pain in the mid back and ribs to range of motion of the upper extremities. No other positive findings. SURGICAL PATHOLOGY, 12/19/2016, IMPRESSION: Soft tissue mass near T11. CT guided needle biopsy: Malignant poorly-differentiated carcinoma consistent with transitional cell carcinoma. RADIOLOGY: Abdomen and pelvis CT, 12/17/2016. IMPRESSION: Metastatic lesion to the left posterior acetabulum. Left adnexal mass measures 4.0 x 2.0 cm. Wall thickening involving the anterior urinary bladder measuring [address] angiogram 12/17/2016. CONCLUSION: Bibasilar patchy densities likely atelectasis. No evidence of pulmonary embolism. Metastatic lesions involving the thoracic spine and right ribs. ASSESSMENT: A 71-year white female with the diagnosis of metastatic urothelial CA to the thoracic spine, symptomatic, also to the left acetabulum. The patient is being evaluated for possible palliative radiotherapy and treatment options. PLAN: I had an extensive discussion with the patient in regards to the presenting condition. She had two very close friends with her in the room. I have also discussed this case personally with Dr. Reyes. I evaluated Dr. Lindsey's note from 12/19/2016. I advised the patient that I would recommend palliative radiation therapy to her spine as well as to the left acetabulum. She does have an adnexal mass which is somewhat close to the lesion on the acetabulum and I can cover it in the same radiation field. I advised the patient that the radiation therapy to the spine and ribs will be to prevent neurological damage and to prevent further pathological fracture and to help with pain. I advised the patient that the radiation therapy to the left acetabulum will be to prevent a pathological fracture and for pain down the road. She is asymptomatic at this level at this present time. I discussed the merits of radiotherapy as well as side effects and complications to include but not be limited to weakness and fatigue, decreased blood counts, erythema of the skin, necrosis of the skin, difficulty with pain on swallowing, esophageal strictures, liver damage, bowel damage and perforation which could lead to , nausea, vomiting and diarrhea, hemorrhoidal flare-up, bowel and bladder damage, bowel and bladder incontinence , bowel and bladder bleeding, bone damage and fracture, nerve damage and spinal cord damage. After a thorough discussion, the patient understood the purpose of radiation therapy and wants to proceed forward with radiation therapy. The patient is to be simulated tomorrow and to start treatments soon as possible. The patient and friends were advised if I could be of any further assistance, to please let me know, otherwise we will proceed as above. Dr. Reyes, Thank you very much for your referral of this patient and for allowing me to participate in her care. Should you have any further questions or concerns, please do not hesitate to contact me. Partha Kwan MD Radiation Oncologist [facility]ON[facility]IO LUONG/AVI /7:22 PM /7:13 PM [facility]
[2016-12-24 21:52] LABS: BLOOD, URINE TRACE (NEG); COMMENT (UR) CULTURE INDICATED; CULTURE IF INDICATED CULTURE INDICATED; GLUCOSE,URINE NEG (NEG); KETONE, URINE NEG (NEG); MUCUS URINE FEW /lpf (OCC); NITRITE,URINE NEG (NEG); PH, URINE 6.5 (5.0-8.5); SQUAMOUS EPITHELIAL CELL URINE 1 /hpf (0-5); URINE COLOR YELLOW (YELLW/STRAW)
[2016-12-24] MEDS: CYCLOBENZAPRINE HCL 10 MG TAB PO PRN (23:33)
[2016-12-25] VITALS (7 sets, daily range): BP systolic 115–155; BP diastolic 63–78; PULSE 100–115; RESP 17–20; TEMP 97.6–98.8; O2SAT 93–95
[2016-12-25] MEDS: METOPROLOL TARTRATE 25 MG TAB PO SCH ×3 (05:45→20:43)
[2016-12-25] MEDS: POTASSIUM CHLORIDE 20 MEQ CONTROLLED RELEASE TAB PO SCH (08:32)
[2016-12-25] MEDS: REMOVE OLD PATCH T-DERMAL SCH (08:32)
[2016-12-25] MEDS: amLODIPine BESYLATE 5 MG TAB PO SCH (08:32)
[2016-12-25] MEDS: DOCUSATE SODIUM 100 MG CAP PO SCH ×2 (08:32→20:42)
[2016-12-25] MEDS: NICOTINE 21 MG/24 HR PATCH T-DERMAL SCH (08:32)
[2016-12-25] MEDS: MULTIVITAMINS/MINERALS THERAPEUTIC TAB PO SCH (08:32)
[2016-12-25] MEDS: POLYETHYLENE GLYCOL 17 GM PKG PO SCH (08:33)
[2016-12-25] MEDS: MORPHINE SULFATE 15 MG CONTROLLED RELEASE TAB PO SCH ×2 (08:35→20:43)
--- NOTE | 2016-12-25 11:51 | PD.CONS ---
Provisional Diagnosis Admission Date December 18, 2016 at 11:07 History of Present Illness Service Psychiatry Consult Requested By Primary Care Physician Darius Lerma MD Past Family Social History Coded Allergies: No Known Allergies (Verified , 12/17/16) Active Scripts Hydrocodone-Acetaminophen (Lortab)5-325 Mg Tab1-2 Tab PO Q6H PRN (PAIN) #20 TAB Ref 0 Prov:Marlene Cortes MD 12/15/16 Reported Medications Oxycodone-Acetaminophen (Percocet)7.5-325 mg Tab1 Tab PO Q6H PRN (PAIN) Ref 0 12/17/16 Naproxen Sodium (Aleve)220 Mg [id number] Mg PO BID PRN (Pain Management) Ref 0 12/17/16 Multiple Vitamins W/ Minerals (Multivitamin Women)1 Tab Tab1 Tab PO DAILY Ref 0 12/15/16 Ibuprofen (Advil)200 Mg [id number] Mg PO TID Ref 0 12/15/16 Fish Oil-Cholecalciferol (Capulin-3 Fish Oil/Vitamin)1,000-1,000 Mg Cap1 Cap PO DAILY Ref 0 12/15/16 Current Medications Medications (Trade) Dose Ordered Sig/Hoang Route Start Time Stop Time Status Last Admin (Theragran M Tab) 1 tab DAILY PO 12/18/16 09:00 12/25/16 08:32 (NS Flush) 2 ml UNSCH PRN IV FLUSH 12/17/16 12:30 (NS Flush) 2 ml BID IV FLUSH 12/17/16 21:00 12/24/16 09:00 (Zofran Inj) 4 mg Q6H PRN IVP 12/17/16 12:30 (Colace) 100 mg Q12HR PO 12/17/16 12:30 12/25/16 08:32 (Milk Of Magnesia Liq) 30 ml Q12H PRN PO 12/17/16 12:30 (Restoril) 15 mg HS PRN PO 12/17/16 12:30 (Heparin Inj) 5,000 units Q12H SQ 12/17/16 13:00 Hold 12/22/16 13:33 (Narcan Inj) 0.4 mg UNSCH PRN IV 12/17/16 12:30 (Romazicon Inj) 0.2 mg Q1M PRN IV PUSH 12/17/16 16:45 (Ativan) 1 mg Q4H PRN PO 12/17/16 16:45 12/20/16 08:33 (Ativan Inj) 1 mg Q4H PRN IV PUSH 12/17/16 16:45 12/24/16 04:35 (Ativan) 2 mg Q2H PRN PO 12/17/16 16:45 (Ativan Inj) 2 mg Q2H PRN IV PUSH 12/17/16 16:45 (Ativan Inj) 2 mg Q1H PRN IV PUSH 12/17/16 16:45 (Ativan Inj) 2 mg Q15M PRN IV PUSH 12/17/16 16:45 (Catapres) 0.1 mg Q6H PRN PO 12/18/16 07:45 12/18/16 07:58 (Norvasc) 5 mg DAILY PO 12/18/16 09:00 12/25/16 08:32 (Flexeril) 5 mg Q8H PRN PO 12/18/16 09:00 12/24/16 23:33 (Pill Splitter) 1 ea UNSCH PRN OTHER 12/18/16 09:15 (Habitrol 21 Mg Patch.24 Hr) 1 patch DAILY T-DERMAL 12/18/16 14:30 12/25/16 08:32 Miscellaneous Information 1 DAILY T-DERMAL 12/19/16 09:00 12/25/16 08:32 (Duragesic 50 Mcg Patch.72 Hr) 1 patch Q72H TOPICAL 12/21/16 14:00 12/24/16 13:20 Miscellaneous Information 1 Q72H T-DERMAL 12/21/16 14:00 12/24/16 14:00 (Dilaudid Pf Inj) 0.5 mg Q3H PRN IV PUSH 12/22/16 14:15 12/24/16 18:49 (KCl) 20 meq DAILY PO 12/23/16 09:00 12/25/16 08:32 (Lopressor) 25 mg Q8HR PO 12/23/16 14:00 12/25/16 05:45 (Oramorph Sr) 45 mg Q12HR PO 12/23/16 09:00 12/25/16 08:35 (Miralax) 17 gm DAILY PO 12/23/16 09:00 12/25/16 08:33 (Roxicodone) 10 mg Q6H PRN PO 12/23/16 08:45 12/25/16 05:45 (Neurontin) 300 mg DAILY@20 PO 12/23/16 20:00 12/24/16 19:47 Haloperidol Lactate 2 mg 2 mg Q15M PRN IM 12/23/16 23:45 (D5-NS + KCl 20 Meq Inj) 1,000 ml @ 70 mls/hr [id number] IV 12/24/16 16:45 12/24/16 18:44 (Levaquin) 500 mg DAILY@11 PO 12/25/16 11:00 Physical Exam Vital Signs Vital Signs Date Time Temp Pulse Resp B/P Pulse Ox O2 Delivery O2 Flow Rate FiO2 12/25/16 08:30 98.5 12/25/16 07:50 105 20 115/75 94 12/21/16 21:40 Nasal Cannula 2.00 I/O 12/24/16 12/24/16 12/24/16 07:59 15:59 23:59 Intake Total 0 ml 480 ml Output Total 200 ml Balance 0 ml 280 ml Assessment & Plan Problem List: (1) Metastatic disease Assessment & Plan: I came to evaluate the patient, but she was out having a procedure at this moment. I will come in a letter time. Thanks! ICD Code: C79.9 Assessment & Plan Estimated LOS: Karthikeyan Seals MD December 25, 2016 11:51
[2016-12-25] MEDS: LEVOFLOXACIN 500 MG TAB PO SCH (12:31)
[2016-12-25] MEDS: SODIUM CHLORIDE 0.9% FLUSH 10 ML FLUSH IV FLUSH SCH ×2 (12:32→20:42)
[2016-12-25] MEDS: D5-NS + KCL 20 MEQ INJ 1,000 ML IV SCH ×2 (12:32→20:44)
--- NOTE | 2016-12-25 13:03 | HHI.PR ---
Subjective Remarks no complains of pain, diarrhea or dysuria this am- no delusions, not hearing any voices Objective Vitals Vital Signs Date Time Temp Pulse Resp B/P Pulse Ox O2 Delivery O2 Flow Rate FiO2 12/25/16 11:50 98.8 100 20 136/63 95 12/25/16 08:30 98.5 12/25/16 07:50 105 20 115/75 94 12/25/16 04:00 97.6 106 17 136/76 95 12/25/16 00:00 98.3 105 18 137/78 95 12/24/16 20:00 98.0 108 17 122/58 93 12/24/16 16:00 99.1 114 22 141/85 92 I/O 12/24/16 12/24/16 12/24/16 12/25/16 12/25/16 12/25/16 07:00 15:00 23:00 07:00 15:00 23:00 Intake Total 0 ml 480 ml 1008 ml Output Total 200 ml 300 ml Balance 0 ml 280 ml 708 ml Intake Oral 0 ml 480 ml 240 ml IV Total 768 ml Output Urine Total 200 ml 300 ml # Voids 2 1 # Bowel Movements 0 0 Result Diagram: 12/21/16 0600 12/24/16 0631 Imaging Last Impressions Head CT 12/24/16 0000 Signed Impressions: Service Date/Time: Saturday, December 24, 2016 14:02 - CONCLUSION: No evidence of intracranial metastatic disease. Les Pena MD Soft Tissue Biopsy 12/19/16 0000 Signed Impressions: Service Date/Time: Monday, December 19, 2016 12:09 - CONCLUSION: Uncomplicated CT guided biopsy. The destructive lesion involving the T11 rib on the right was biopsied. Oscar Khan MD Chest X-Ray 12/19/16 0000 Signed Impressions: Service Date/Time: Monday, December 19, 2016 14:39 - CONCLUSION: No evidence of pneumothorax. Bibasilar atelectasis. Robert Berman MD CT Angiography 12/17/16 0953 Signed Impressions: Service Date/Time: Saturday, December 17, 2016 11:23 - CONCLUSION: 1. Bibasilar patchy densities likely atelectasis. 2. No evidence for pulmonary embolism. 3. Metastatic lesions involving thoracic spine and right 11th ribs. Jeff Hardy MD Abdomen/Pelvis CT 12/17/16 0000 Signed Impressions: Service Date/Time: Saturday, December 17, 2016 11:23 - CONCLUSION: 1. Metastatic lesion to the left posterior acetabulum. 2. Left adnexal mass measures 4.0 x 2.7 cm could be ovarian in etiology. Pelvic sonogram may be warranted. 3. Wall thickening involving the anterior urinary bladder measuring 11 mm in thickness. Jeff Hardy MD Objective Remarks awake and alert, oriented to person and place and year, ff commands anicteric no nuchal rigidity lungs- no rales regular rhythm, abdomen-soft nontender extremities no edema moves all extremities equally A/P Problem List: (1) Metastatic disease ICD Code: C79.9 Status: Acute (2) Intractable pain ICD Code: R52 Status: Acute (3) Lytic lesion of bone on x-ray ICD Code: M89.9 Status: Acute (4) Adnexal mass ICD Code: N94.9 Status: Acute (5) Back pain ICD Code: M54.9 Status: Acute (6) Hypokalemia ICD Code: E87.6 Status: Acute (7) Hyponatremia ICD Code: E87.1 Status: Acute (8) Tobacco abuse ICD Code: Z72.0 Status: Acute (9) Alcohol abuse ICD Code: F10.10 Status: Acute (10) Hypertension ICD Code: I10 Status: Acute Assessment and Plan 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 She also has an adnexal mass. -Appreciate oncology following. Less likely to be ovarian in origin. Status post CT-guided biopsy of the soft tissue mass arising from the rib cage. - Oncology ff- Radiation oncology service consulted. - Urology consulted Intractable pain Left sided rib pain x 3 weeks now - with erythema area- appears scab ? Neuralgia - possible previous Zoster ICD Code: R52 Status: Acute Plan: Patient has multiple bony lytic lesions concerning for metastatic disease , soft tissue mass about the ribs. She also has an adnexal mass. - Pain difficult to control. She cannot ambulate. Continue long-acting morphine to 45 mg every q12. fentanyl patch 25 g every 3 days. IV Dilaudid IV q 3 prn. start po Roxicodone 10 mg q 6 prn - Patient's pain has been very difficult to control. She cannot ambulate due to the pain. -Neurontin 300 mg hs Adnexal mass ICD Code: N94.9 Status: Acute Plan: Probably metastatic disease. See workup as above. Hypokalemia on KCL po daily. Ff BMP Hyponatremia- improved- ICD Code: E87.1 Status: Acute Tobacco abuse ICD Code: Z72.0 Status: Acute Plan: The patient was counseled to quit. Nicotine patch. Alcohol abuse ICD Code: F10.10 Status: Acute Hypertension, pain contributing factor Status: Acute Plan: Much improved with Norvasc, clonidine as needed. Increase Lopressor 25 mg po q 8 manage pain- contributing factor Acute pscyhosis- sundowning- now - behavior - appropriate psychiatry consult- appreciate recommendations Head CT negative UTI- start on po antibiotics- Levaquin 500 mg po daily. Ff final c and s. Discharge Planning Discharge pending better pain control and pathology report. Shelbie Whelan MD December 25, 2016 13:03 Shelbie Whelan MD December 25, 2016 13:03
[2016-12-25] MEDS: HYDROmorphone HCL PF 1 MG/ML VIAL IV PUSH PRN ×2 (14:01→17:46)
[2016-12-25] MEDS: TEMAZEPAM 15 MG CAP PO PRN (20:42)
[2016-12-25] MEDS: GABAPENTIN 300 MG CAP PO SCH (20:42)
[2016-12-26] VITALS: BP 142/65; PULSE 108; RESP 19; TEMP 98; O2SAT 94
[2016-12-26] MEDS: LORazepam 2 MG/ML VIAL IV PUSH PRN (01:15)
[2016-12-26 05:00] VITALS: BP 143/82; PULSE 110; RESP 20; TEMP 96.8; O2SAT 94
[2016-12-26] MEDS: METOPROLOL TARTRATE 25 MG TAB PO SCH ×3 (05:03→21:10)
--- NOTE | 2016-12-26 08:50 | HHI.PR ---
Subjective Patient symptoms today Pt seen and examined. Awake and alert. Confused over weekend and cysto/bladder bx postponed. Objective Vital Signs Vital Signs Date Time Temp Pulse Resp B/P Pulse Ox O2 Delivery O2 Flow Rate FiO2 12/26/16 05:00 96.8 110 20 143/82 94 12/26/16 00:00 98.0 108 19 142/65 94 12/25/16 20:00 98.6 115 20 151/66 93 12/25/16 15:50 97.6 104 20 155/69 93 12/25/16 11:50 98.8 100 20 136/63 95 Intake & Output 12/26/16 12/26/16 07:00 19:00 Intake Total 1486 ml Output Total 500 ml Balance 986 ml Intake Oral 960 ml IV Total 526 ml Output Urine Total 500 ml # Bowel Movements 0 Result Diagram: 12/24/16630 Objective Remarks Abd:soft,nt,nd Medications and IVs Current Medications Medications (Trade) Dose Ordered Sig/Hoang Route Start Time Stop Time Status Last Admin (Theragran M Tab) 1 tab DAILY PO 12/18/16 09:00 12/25/16 08:32 (NS Flush) 2 ml UNSCH PRN IV FLUSH 12/17/16 12:30 (NS Flush) 2 ml BID IV FLUSH 12/17/16 21:00 12/25/16 20:42 (Zofran Inj) 4 mg Q6H PRN IVP 12/17/16 12:30 (Colace) 100 mg Q12HR PO 12/17/16 12:30 12/25/16 20:42 (Milk Of Magnesia Liq) 30 ml Q12H PRN PO 12/17/16 12:30 (Restoril) 15 mg HS PRN PO 12/17/16 12:30 12/25/16 20:42 (Heparin Inj) 5,000 units Q12H SQ 12/17/16 13:00 Hold 12/22/16 13:33 (Narcan Inj) 0.4 mg UNSCH PRN IV 12/17/16 12:30 (Romazicon Inj) 0.2 mg Q1M PRN IV PUSH 12/17/16 16:45 (Ativan) 1 mg Q4H PRN PO 12/17/16 16:45 12/20/16 08:33 (Ativan Inj) 1 mg Q4H PRN IV PUSH 12/17/16 16:45 12/24/16 04:35 (Ativan) 2 mg Q2H PRN PO 12/17/16 16:45 (Ativan Inj) 2 mg Q2H PRN IV PUSH 12/17/16 16:45 (Ativan Inj) 2 mg Q1H PRN IV PUSH 12/17/16 16:45 12/26/16 01:15 (Ativan Inj) 2 mg Q15M PRN IV PUSH 12/17/16 16:45 (Catapres) 0.1 mg Q6H PRN PO 12/18/16 07:45 12/18/16 07:58 (Norvasc) 5 mg DAILY PO 12/18/16 09:00 12/25/16 08:32 (Flexeril) 5 mg Q8H PRN PO 12/18/16 09:00 12/24/16 23:33 (Pill Splitter) 1 ea UNSCH PRN OTHER 12/18/16 09:15 (Habitrol 21 Mg Patch.24 Hr) 1 patch DAILY T-DERMAL 12/18/16 14:30 12/25/16 08:32 Miscellaneous Information 1 DAILY T-DERMAL 12/19/16 09:00 12/25/16 08:32 (Duragesic 50 Mcg Patch.72 Hr) 1 patch Q72H TOPICAL 12/21/16 14:00 12/24/16 13:20 Miscellaneous Information 1 Q72H T-DERMAL 12/21/16 14:00 12/24/16 14:00 (Dilaudid Pf Inj) 0.5 mg Q3H PRN IV PUSH 12/22/16 14:15 12/25/16 17:46 (KCl) 20 meq DAILY PO 12/23/16 09:00 12/25/16 08:32 (Lopressor) 25 mg Q8HR PO 12/23/16 14:00 12/26/16 05:03 (Oramorph Sr) 45 mg Q12HR PO 12/23/16 09:00 12/25/16 20:43 (Miralax) 17 gm DAILY PO 12/23/16 09:00 12/25/16 08:33 (Roxicodone) 10 mg Q6H PRN PO 5/19/17 08:45 12/26/16 05:03 (Neurontin) 300 mg DAILY@20 PO 12/23/16 20:00 12/25/16 20:42 Haloperidol Lactate 2 mg 2 mg Q15M PRN IM 12/23/16 23:45 (D5-NS + KCl 20 Meq Inj) 1,000 ml @ 42 mls/hr [id number] IV 12/24/16 16:45 12/25/16 20:44 (Levaquin) 500 mg DAILY@11 PO 12/25/16 11:00 12/25/16 12:31 Assessment and Plan Assessment and Plan 71 year-old female with evidence of lytic lesions around the T 11 area with recent biopsy of soft tissue mass concerning for transitional cell carcinoma. Bladder wall thickening identified on CT scan. Plan is for patient to undergo cystoscopy with bladder biopsy in the a.m. Nothing by mouth after midnight. Risk and benefits discussed and patient is willing to proceed. If biopsy is negative, was suggest Marilyn tumor and evaluation by ANTHROPOLOGIST PHYSICAL oncology. Thank you for the consult and for allowing me to participate in the care of this patient. 12/26 71 year-old female with evidence of lytic lesions around the T 11 area with recent biopsy of soft tissue mass concerning for transitional cell carcinoma. Bladder wall thickening identified on CT scan. Confusion has resolved. Plan is for patient to undergo cystoscopy with bladder biopsy in the a.m. Nothing by mouth after midnight. Ag Betancourt DO December 26, 2016 08:50
[2016-12-26] MEDS: REMOVE OLD PATCH T-DERMAL SCH (09:00)
[2016-12-26 09:20] VITALS: BP 143/83; PULSE 105; RESP 17; TEMP 95.7; O2SAT 93
[2016-12-26] MEDS: POLYETHYLENE GLYCOL 17 GM PKG PO SCH (09:32)
[2016-12-26] MEDS: amLODIPine BESYLATE 5 MG TAB PO SCH (09:32)
[2016-12-26] MEDS: DOCUSATE SODIUM 100 MG CAP PO SCH ×2 (09:32→21:10)
[2016-12-26] MEDS: NICOTINE 21 MG/24 HR PATCH T-DERMAL SCH (09:32)
[2016-12-26] MEDS: POTASSIUM CHLORIDE 20 MEQ CONTROLLED RELEASE TAB PO SCH (09:32)
[2016-12-26] MEDS: MULTIVITAMINS/MINERALS THERAPEUTIC TAB PO SCH (09:33)
[2016-12-26] MEDS: MORPHINE SULFATE 15 MG CONTROLLED RELEASE TAB PO SCH ×2 (09:33→21:10)
[2016-12-26] MEDS: SODIUM CHLORIDE 0.9% FLUSH 10 ML FLUSH IV FLUSH SCH ×2 (09:34→21:00)
[2016-12-26] MEDS: LEVOFLOXACIN 500 MG TAB PO SCH (12:09)
--- NOTE | 2016-12-26 12:22 | PD.ONC.PN ---
Subjective Subjective Remarks Afebrile overnight. Patient resting in room in nad. No reported overnight events. Urology planning for cystoscopy tomorrow. Objective Data Date Time Temp Pulse Resp B/P Pulse Ox O2 Delivery O2 Flow Rate FiO2 12/26/16 09:20 95.7 105 17 143/83 93 12/26/16 05:00 96.8 110 20 143/82 94 12/26/16 00:00 98.0 108 19 142/65 94 12/25/16 20:00 98.6 115 20 151/66 93 12/25/16 15:50 97.6 104 20 155/69 93 Result Diagram: 12/24/16 0631 Culture Results Microbiology Date/Time Procedure Status Source Growth 12/24/16 21:24 Urine Culture - Final Complete Urine Clean Catch 10-50,000 CFU/ML MIXED NICOLE... Administered Medications Medications (Trade) Dose Ordered Sig/Hoang Route PRN Reason Start Time Stop Time Status Last Admin Dose Admin Multivitamins/ Minerals Therapeutic (Theragran M Tab) 1 tab DAILY PO 12/18/16 09:00 12/26/16 09:33 Sodium Chloride (NS Flush) 2 ml BID IV FLUSH 12/17/16 21:00 12/26/16 09:34 Docusate Sodium (Colace) 100 mg Q12HR PO 12/17/16 12:30 12/26/16 09:32 Temazepam (Restoril) 15 mg HS PRN PO INSOMNIA 12/17/16 12:30 12/25/16 20:42 Heparin Sodium (Porcine) (Heparin Inj) 5,000 units Q12H SQ 12/17/16 13:00 Hold 12/22/16 13:33 Lorazepam (Ativan) 1 mg Q4H PRN PO CIWA 8 - 10 12/17/16 16:45 12/20/16 08:33 Lorazepam (Ativan Inj) 1 mg Q4H PRN IV PUSH CIWA 8 - 10 12/17/16 16:45 12/24/16 04:35 Lorazepam (Ativan Inj) 2 mg Q1H PRN IV PUSH CIWA 15-20 12/17/16 16:45 12/26/16 01:15 Clonidine (Catapres) 0.1 mg Q6H PRN PO SBP>160, DBP>90 12/18/16 07:45 12/18/16 07:58 Amlodipine Besylate (Norvasc) 5 mg DAILY PO 12/18/16 09:00 12/26/16 09:32 Cyclobenzaprine HCl (Flexeril) 5 mg Q8H PRN PO MUSCLE SPASM 12/18/16 09:00 12/24/16 23:33 Nicotine (Habitrol 21 Mg Patch.24 Hr) 1 patch DAILY T-DERMAL 12/18/16 14:30 12/26/16 09:32 Miscellaneous Information 1 DAILY T-DERMAL 12/19/16 09:00 12/26/16 09:00 Fentanyl (Duragesic 50 Mcg Patch.72 Hr) 1 patch Q72H TOPICAL 12/21/16 14:00 12/24/16 13:20 Miscellaneous Information 1 Q72H T-DERMAL 12/21/16 14:00 12/24/16 14:00 Hydromorphone HCl (Dilaudid Pf Inj) 0.5 mg Q3H PRN IV PUSH PAIN SCALE 4 TO 10 12/22/16 14:15 12/25/16 17:46 Potassium Chloride (KCl) 20 meq DAILY PO 12/23/16 09:00 12/26/16 09:32 Metoprolol Tartrate (Lopressor) 25 mg Q8HR PO 12/23/16 14:00 12/26/16 05:03 Morphine Sulfate (Oramorph Sr) 45 mg Q12HR PO 12/23/16 09:00 12/26/16 09:33 Polyethylene Glycol (Miralax) 17 gm DAILY PO 12/23/16 09:00 12/26/16 09:32 Oxycodone HCl (Roxicodone) 10 mg Q6H PRN PO PAIN SCALE 6 TO 10 12/23/16 08:45 12/26/16 05:03 Gabapentin 300 mg 300 mg DAILY@20 PO 12/23/16 20:00 12/25/16 20:42 Potassium Chloride/Dextrose/ Sod Cl (D5-NS + KCl 20 Meq Inj) 1,000 ml @ 42 mls/hr [id number] IV 12/24/16 16:45 12/25/16 20:44 Levofloxacin (Levaquin) 500 mg DAILY@11 PO 12/25/16 11:00 12/26/16 12:09 Objective Remarks GENERAL: Elderly female, lying in bed, sleeping on approach. SKIN: Warm and dry. HEAD: Normocephalic. EYES: No scleral icterus. No injection or drainage. NECK: Supple, trachea midline. CARDIOVASCULAR: Regular rate and rhythm RESPIRATORY: Breath sounds equal bilaterally. No accessory muscle use. GASTROINTESTINAL: Abdomen soft, non-tender, nondistended. EXTREMITIES: No cyanosis NEUROLOGICAL: No obvious focal deficit. Awake, alert, and oriented x3. Assessment/Plan Problem List: (1) Metastatic disease Status: Acute Plan: 12/26: Urology to perform cystoscopy tomorrow AM, may need pelvic u/s and ASSISTANT FINANCE MANAGER oncology consult depending on results of cystoscopy. 12/23 DR Polo saw her yesterday. Will start XRT soon. after XRT willl give her chemo cisplatin and gemzar. Aaawait input for cystoscopy. 12/22: await radiation oncology and urology consults. continue supportive care. continue morphine. questions answered 12/21 Path report reviewed with pt. 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 D/W pt and friend that she has mets UB ca. She is in lot of pain. Narcotics are not controlling the pain. I recommend XRT consult for palliative XRT to spine mets. Transfer to Main [facility] [place]. Consult Urology for cystoscopy to confirm UB as primary. Attending Statement confuse. Had change in [place] over the weekend( Per RN) XRt to start soon. for cysto tomorrow. The exam, history, and the medical decision-making described in the above note were completed with the assistance of the mid-level provider. I reviewed and agree with the findings presented. I attest that I had a [id number] encounter with the patient on the same day, and personally performed and documented my assessment and findings in the medical record. Suzan Diez December 26, 2016 12:22 Wu Reyes MD December 26, 2016 17:15
--- NOTE | 2016-12-26 12:54 | HHI.PR ---
Subjective Remarks seen after XRT- doing very well no complains, apprpriate and interactive Objective Vitals Vital Signs Date Time Temp Pulse Resp B/P Pulse Ox O2 Delivery O2 Flow Rate FiO2 12/26/16 09:20 95.7 105 17 143/83 93 12/26/16 05:00 96.8 110 20 143/82 94 12/26/16 00:00 98.0 108 19 142/65 94 12/25/16 20:00 98.6 115 20 151/66 93 12/25/16 15:50 97.6 104 20 155/69 93 I/O 12/25/16 12/25/16 12/25/16 12/26/16 12/26/16 12/26/16 07:00 15:00 23:00 07:00 15:00 23:00 Intake Total 1008 ml 1178 ml 480 ml 1006 ml Output Total 300 ml 200 ml 300 ml Balance 708 ml 1178 ml 280 ml 706 ml Intake Oral 240 ml 1080 ml 480 ml 480 ml IV Total 768 ml 98 ml 526 ml Output Urine Total 300 ml 200 ml 300 ml # Voids 3 # Bowel Movements 0 0 0 0 Result Diagram: 12/24/16 0631 Imaging Last Impressions Head CT 12/24/16 0000 Signed Impressions: Service Date/Time: Saturday, December 24, 2016 14:02 - CONCLUSION: No evidence of intracranial metastatic disease. Les Pean MD Soft Tissue Biopsy 12/19/16 0000 Signed Impressions: Service Date/Time: Monday, December 19, 2016 12:09 - CONCLUSION: Uncomplicated CT guided biopsy. The destructive lesion involving the T11 rib on the right was biopsied. Oscar Khan MD Chest X-Ray 12/19/16 0000 Signed Impressions: Service Date/Time: Monday, December 19, 2016 14:39 - CONCLUSION: No evidence of pneumothorax. Bibasilar atelectasis. Robert Berman MD CT Angiography 12/17/16 0953 Signed Impressions: Service Date/Time: Saturday, December 17, 2016 11:23 - CONCLUSION: 1. Bibasilar patchy densities likely atelectasis. 2. No evidence for pulmonary embolism. 3. Metastatic lesions involving thoracic spine and right 11th ribs. Jeff Hardy MD Abdomen/Pelvis CT 12/17/16 0000 Signed Impressions: Service Date/Time: Saturday, December 17, 2016 11:23 - CONCLUSION: 1. Metastatic lesion to the left posterior acetabulum. 2. Left adnexal mass measures 4.0 x 2.7 cm could be ovarian in etiology. Pelvic sonogram may be warranted. 3. Wall thickening involving the anterior urinary bladder measuring 11 mm in thickness. Jeff Hardy MD Objective Remarks awake and alert, oriented to person and place and year, ff commands anicteric no nuchal rigidity lungs- no rales regular rhythm, abdomen-soft nontender extremities no edema moves all extremities equally A/P Problem List: (1) Metastatic disease ICD Code: C79.9 Status: Acute (2) Intractable pain ICD Code: R52 Status: Acute (3) Lytic lesion of bone on x-ray ICD Code: M89.9 Status: Acute (4) Adnexal mass ICD Code: N94.9 Status: Acute (5) Back pain ICD Code: M54.9 Status: Acute (6) Hypokalemia ICD Code: E87.6 Status: Acute (7) Hyponatremia ICD Code: E87.1 Status: Acute (8) Tobacco abuse ICD Code: Z72.0 Status: Acute (9) Alcohol abuse ICD Code: F10.10 Status: Acute (10) Hypertension ICD Code: I10 Status: Acute Assessment and Plan 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 She also has an adnexal mass. -Appreciate oncology following. Less likely to be ovarian in origin. Status post CT-guided biopsy of the soft tissue mass arising from the rib cage. - Oncology ff- Radiation treatment ongoing - Urology ff- plan for cystoscopy in am Intractable pain Left sided rib pain x 3 weeks now - with erythema area- appears scab ? Neuralgia - possible previous Zoster ICD Code: R52 Status: Acute Plan: Patient has multiple bony lytic lesions concerning for metastatic disease , soft tissue mass about the ribs. She also has an adnexal mass. - Pain difficult to control. She cannot ambulate. Continue long-acting morphine to 45 mg every q12. fentanyl patch 25 g every 3 days. IV Dilaudid IV q 3 prn. start po Roxicodone 10 mg q 6 prn - Patient's pain has been very difficult to control. She cannot ambulate due to the pain. -Neurontin 300 mg hs Adnexal mass ICD Code: N94.9 Status: Acute Plan: Probably metastatic disease. Hypokalemia- resolved on KCL po daily. Ff BMP Hyponatremia- improved- ICD Code: E87.1 Status: Acute Tobacco abuse ICD Code: Z72.0 Status: Acute Plan: The patient was counseled to quit. Nicotine patch. Alcohol abuse ICD Code: F10.10 Status: Acute Hypertension, pain contributing factor Status: Acute Plan: Much improved with Norvasc, clonidine as needed. Increase Lopressor 25 mg po q 8 manage pain- contributing factor Acute psychosis- resolved. Head CT negative UTI- on Levaquin 500 mg po daily. Ff final c and s. Discharge Planning Discharge pending work up in progress Shelbie Whelan MD December 26, 2016 12:54
[2016-12-26 13:50] VITALS: BP 136/69; PULSE 120; RESP 17; TEMP 98; O2SAT 94
--- NOTE | 2016-12-26 14:46 | PD.CONS ---
Provisional Diagnosis Admission Date December 18, 2016 at 11:07 History of Present Illness Service Psychiatry Consult Requested By Primary Care Physician Darius Lerma MD Past Family Social History Coded Allergies: No Known Allergies (Verified , 12/17/16) Active Scripts Hydrocodone-Acetaminophen (Lortab)5-325 Mg Tab1-2 Tab PO Q6H PRN (PAIN) #20 TAB Ref 0 Prov:Marlene Cortes MD 12/15/16 Reported Medications Oxycodone-Acetaminophen (Percocet)7.5-325 mg Tab1 Tab PO Q6H PRN (PAIN) Ref 0 12/17/16 Naproxen Sodium (Aleve)220 Mg [id number] Mg PO BID PRN (Pain Management) Ref 0 12/17/16 Multiple Vitamins W/ Minerals (Multivitamin Women)1 Tab Tab1 Tab PO DAILY Ref 0 12/15/16 Ibuprofen (Advil)200 Mg [id number] Mg PO TID Ref 0 12/15/16 Fish Oil-Cholecalciferol ([place]-3 Fish Oil/Vitamin)1,000-1,000 Mg Cap1 Cap PO DAILY Ref 0 12/15/16 Current Medications Medications (Trade) Dose Ordered Sig/Hoang Route Start Time Stop Time Status Last Admin (Theragran M Tab) 1 tab DAILY PO 12/18/16 09:00 12/26/16 09:33 (NS Flush) 2 ml UNSCH PRN IV FLUSH 12/17/16 12:30 (NS Flush) 2 ml BID IV FLUSH 12/17/16 21:00 12/26/16 09:34 (Zofran Inj) 4 mg Q6H PRN IVP 12/17/16 12:30 (Colace) 100 mg Q12HR PO 12/17/16 12:30 12/26/16 09:32 (Milk Of Magnesia Liq) 30 ml Q12H PRN PO 12/17/16 12:30 (Restoril) 15 mg HS PRN PO 12/17/16 12:30 12/25/16 20:42 (Heparin Inj) 5,000 units Q12H SQ 12/17/16 13:00 Hold 12/22/16 13:33 (Narcan Inj) 0.4 mg UNSCH PRN IV 12/17/16 12:30 (Romazicon Inj) 0.2 mg Q1M PRN IV PUSH 12/17/16 16:45 (Ativan) 1 mg Q4H PRN PO 12/17/16 16:45 12/20/16 08:33 (Ativan Inj) 1 mg Q4H PRN IV PUSH 12/17/16 16:45 12/24/16 04:35 (Ativan) 2 mg Q2H PRN PO 12/17/16 16:45 (Ativan Inj) 2 mg Q2H PRN IV PUSH 12/17/16 16:45 (Ativan Inj) 2 mg Q1H PRN IV PUSH 12/17/16 16:45 12/26/16 01:15 (Ativan Inj) 2 mg Q15M PRN IV PUSH 12/17/16 16:45 (Catapres) 0.1 mg Q6H PRN PO 12/18/16 07:45 12/18/16 07:58 (Norvasc) 5 mg DAILY PO 12/18/16 09:00 12/26/16 09:32 (Flexeril) 5 mg Q8H PRN PO 12/18/16 09:00 12/24/16 23:33 (Pill Splitter) 1 ea UNSCH PRN OTHER 12/18/16 09:15 (Habitrol 21 Mg Patch.24 Hr) 1 patch DAILY T-DERMAL 12/18/16 14:30 12/26/16 09:32 Miscellaneous Information 1 DAILY T-DERMAL 12/19/16 09:00 12/26/16 09:00 (Duragesic 50 Mcg Patch.72 Hr) 1 patch Q72H TOPICAL 12/21/16 14:00 12/24/16 13:20 Miscellaneous Information 1 Q72H T-DERMAL 12/21/16 14:00 12/24/16 14:00 (Dilaudid Pf Inj) 0.5 mg Q3H PRN IV PUSH 12/22/16 14:15 12/25/16 17:46 (KCl) 20 meq DAILY PO 12/23/16 09:00 12/26/16 09:32 (Lopressor) 25 mg Q8HR PO 12/23/16 14:00 12/26/16 13:37 (Oramorph Sr) 45 mg Q12HR PO 12/23/16 09:00 12/26/16 09:33 (Miralax) 17 gm DAILY PO 12/23/16 09:00 12/26/16 09:32 (Roxicodone) 10 mg Q6H PRN PO 12/23/16 08:45 12/26/16 05:03 (Neurontin) 300 mg DAILY@20 PO 12/23/16 20:00 12/25/16 20:42 Haloperidol Lactate 2 mg 2 mg Q15M PRN IM 12/23/16 23:45 (D5-NS + KCl 20 Meq Inj) 1,000 ml @ 42 mls/hr [id number] IV 12/24/16 16:45 12/25/16 20:44 (Levaquin) 500 mg DAILY@11 PO 12/25/16 11:00 12/26/16 12:09 Physical Exam Vital Signs Vital Signs Date Time Temp Pulse Resp B/P Pulse Ox O2 Delivery O2 Flow Rate FiO2 12/26/16 13:50 98.0 120 17 136/69 94 I/O 12/25/16 12/25/16 12/25/16 07:59 15:59 23:59 Intake Total 1008 ml 1178 ml 480 ml Output Total 300 ml 200 ml Balance 708 ml 1178 ml 280 ml Assessment & Plan Problem List: (1) Metastatic disease Assessment & Plan: Patient was visited this morning for psychiatric evaluation , she was found deeply slept, she was not engageable in a conversation. I spoke with the nurse in charge who stated that the patient was recently medicated with Ativan 2 mg due to CIWA of 19. I will try to calm later in the afternoon to perform psychiatric evaluation. ICD Code: C79.9 Assessment & Plan Estimated LOS: Karthikeyan Seals MD December 26, 2016 14:45
[2016-12-26 16:46] VITALS: BP 135/78; PULSE 101; RESP 12; TEMP 98; O2SAT 99
[2016-12-26 17:08] LABS: BICARBONATE 26.9 MEQ/L (21.0-32.0); POTASSIUM 5.1 MEQ/L (3.5-5.1)
[2016-12-26] MEDS: CYCLOBENZAPRINE HCL 10 MG TAB PO PRN (17:48)
[2016-12-26 20:00] VITALS: BP 157/70; PULSE 102; RESP 18; TEMP 98.6; O2SAT 94
[2016-12-26] MEDS: GABAPENTIN 300 MG CAP PO SCH (21:09)
[2016-12-26] MEDS: TEMAZEPAM 15 MG CAP PO PRN (21:10)
[2016-12-27] VITALS: BP 158/73; PULSE 115; RESP 20; TEMP 98.1; O2SAT 95
[2016-12-27 04:00] VITALS: BP 148/67; PULSE 98; RESP 18; TEMP 98; O2SAT 95
[2016-12-27] MEDS: CYCLOBENZAPRINE HCL 10 MG TAB PO PRN ×2 (05:02→20:54)
[2016-12-27] MEDS: METOPROLOL TARTRATE 25 MG TAB PO SCH ×3 (05:02→22:00)
[2016-12-27 07:45] VITALS: BP 128/70; PULSE 108; RESP 24; TEMP 98.7; O2SAT 94
[2016-12-27] MEDS: REMOVE OLD PATCH T-DERMAL SCH (09:00)
[2016-12-27] MEDS ORDERED: IOHEXOL 350 MG/ML 50 ML BTL (for Cath Lab) ONE (09:26)
--- NOTE | 2016-12-27 09:48 | PD.OP ---
Operative Report Date of Surgery: December 27, 2016 Preoperative Diagnosis: Bladder wall thickening with findings of metastatic disease on CT scan concerning for transitional cell carcinoma. Postoperative Diagnosis: Same Procedure: Cystoscopy with bilateral retrograde study and bladder biopsy of posterior wall Anesthesia: GAEL Surgeon: Ag Betancourt Ladder Operator(s): None Resident Surgeon: None Operation and Findings: Patient was brought to the operating room and identified by myself as Maddie Roche. She was placed in the dorsal lithotomy position, prepped and draped in usual sterile fashion, received preprocedure antibiotics, general endotracheal tube anesthesia was measured. A 22 Khmer scope was inserted in the bladder and a urine cytology was sent. Beck cystoscopy to not show any evidence of any bladder tumors or erythema present. 5 Khmer opening catheter inserted into the left ureteral orifice and retrograde studies were performed. No filling of the left urine collecting system was identified. This procedure was repeated on the right side and the ureter appeared to be normal without any filling defects as well as the right collecting system. Using the cold cup biopsy forcep, the posterior wall bladder biopsy was then taken. The area was then cauterized with the Bugbee cautery to maintain hemostasis. The bladder was evacuated and she was awoken and transferred in stable condition. She tolerated procedure well. If findings are negative, recommend ROUTE VENDING MACHINE SERVICER consult for possible Marilyn tumor as suggested on CT scan. Ag Betancourt DO December 27, 2016 09:48
[2016-12-27] MEDS: SODIUM CHLOR 0.9% 1000 ML IV SCH (10:15)
[2016-12-27] MEDS ORDERED: DO NOT ADM ANY ANTICOAGULANT DRUGS PRN (10:15)
[2016-12-27] MEDS ORDERED: PROPOFOL 200 MG/20 ML AMP IV ONE (10:43)
[2016-12-27] MEDS ORDERED: PHENYLEPH/NS 1000 MCG/10 ML SYR IV ONE (10:44)
[2016-12-27] MEDS ORDERED: ONDANSETRON HCL 4 MG/2 ML VIAL IV PUSH ONE (10:44)
[2016-12-27] MEDS ORDERED: NEOSTIGMINE 3 MG/3 ML SYR IV ONE (10:44)
[2016-12-27] MEDS: NICOTINE 21 MG/24 HR PATCH T-DERMAL SCH (10:56)
[2016-12-27] MEDS: MULTIVITAMINS/MINERALS THERAPEUTIC TAB PO SCH (10:56)
[2016-12-27] MEDS: LEVOFLOXACIN 500 MG TAB PO SCH (10:56)
[2016-12-27] MEDS: amLODIPine BESYLATE 5 MG TAB PO SCH (10:56)
[2016-12-27] MEDS: DOCUSATE SODIUM 100 MG CAP PO SCH ×2 (10:56→20:56)
[2016-12-27] MEDS: POLYETHYLENE GLYCOL 17 GM PKG PO SCH (10:56)
[2016-12-27] MEDS: POTASSIUM CHLORIDE 20 MEQ CONTROLLED RELEASE TAB PO SCH (10:56)
[2016-12-27] MEDS: MORPHINE SULFATE 15 MG CONTROLLED RELEASE TAB PO SCH ×2 (10:57→20:54)
[2016-12-27] MEDS: SODIUM CHLORIDE 0.9% FLUSH 10 ML FLUSH IV FLUSH SCH ×2 (10:58→21:00)
[2016-12-27 12:00] VITALS: BP 136/60; PULSE 107; RESP 20; TEMP 98.9; O2SAT 94
--- NOTE | 2016-12-27 13:46 | HHI.PR ---
Subjective Remarks patient had cystoscopy procedure done this am post procedure - patient became agitated required restraints per staff this am prior to procedure was fine now comfortable- seen with best friend lorraine - feels scared and paranoid- only trust Lorraine this happened before Objective Vitals Vital Signs Date Time Temp Pulse Resp B/P Pulse Ox O2 Delivery O2 Flow Rate FiO2 12/27/16 10:40 98.9 98 14 148/72 95 Nasal Cannula 3 12/27/16 10:30 97 14 145/71 95 Nasal Cannula 3 12/27/16 10:15 103 14 154/82 95 Nasal Cannula 3 12/27/16 10:00 99.1 97 14 127/58 96 Nasal Cannula 3 12/27/16 07:45 98.7 108 24 128/70 94 12/27/16 04:00 98.0 98 18 148/67 95 12/27/16 00:00 98.1 115 20 158/73 95 12/26/16 20:00 98.6 102 18 157/70 94 12/26/16 16:46 98.0 101 12 135/78 99 12/26/16 13:50 98.0 120 17 136/69 94 I/O 12/26/16 12/26/16 12/26/16 12/27/16 12/27/16 12/27/16 07:00 15:00 23:00 07:00 15:00 23:00 Intake Total 1006 ml 510 ml 120 ml 900 ml Output Total 300 ml 350 ml 200 ml Balance 706 ml 160 ml -80 ml 900 ml Intake Oral 480 ml 300 ml 120 ml IV Total 526 ml 210 ml Other 900 ml Output Urine Total 300 ml 350 ml 200 ml # Voids 1 4 # Bowel Movements 0 Result Diagram: 12/26/16 1610 Imaging Last Impressions Head CT 12/24/16 0000 Signed Impressions: Service Date/Time: Saturday, December 24, 2016 14:02 - CONCLUSION: No evidence of intracranial metastatic disease. Les Pena MD Soft Tissue Biopsy 12/19/16 0000 Signed Impressions: Service Date/Time: Monday, December 19, 2016 12:09 - CONCLUSION: Uncomplicated CT guided biopsy. The destructive lesion involving the T11 rib on the right was biopsied. Oscar Khan MD Chest X-Ray 12/19/16 0000 Signed Impressions: Service Date/Time: Monday, December 19, 2016 14:39 - CONCLUSION: No evidence of pneumothorax. Bibasilar atelectasis. Robert Berman MD CT Angiography 12/17/16 0953 Signed Impressions: Service Date/Time: Saturday, December 17, 2016 11:23 - CONCLUSION: 1. Bibasilar patchy densities likely atelectasis. 2. No evidence for pulmonary embolism. 3. Metastatic lesions involving thoracic spine and right 11th ribs. Jeff Hardy MD Abdomen/Pelvis CT 12/17/16 0000 Signed Impressions: Service Date/Time: Saturday, December 17, 2016 11:23 - CONCLUSION: 1. Metastatic lesion to the left posterior acetabulum. 2. Left adnexal mass measures 4.0 x 2.7 cm could be ovarian in etiology. Pelvic sonogram may be warranted. 3. Wall thickening involving the anterior urinary bladder measuring 11 mm in thickness. Jeff Hardy MD Objective Remarks awake and alert, oriented to person and place and year, ff commands, with wide eyed scared look anicteric no nuchal rigidity lungs- no rales regular rhythm, abdomen-soft nontender extremities no edema moves all extremities equally Procedures 12/27 - cystoscopy A/P Problem List: (1) Metastatic disease ICD Code: C79.9 Status: Acute (2) Intractable pain ICD Code: R52 Status: Acute (3) Lytic lesion of bone on x-ray ICD Code: M89.9 Status: Acute (4) Adnexal mass ICD Code: N94.9 Status: Acute (5) Back pain ICD Code: M54.9 Status: Acute (6) Hypokalemia ICD Code: E87.6 Status: Acute (7) Hyponatremia ICD Code: E87.1 Status: Acute (8) Tobacco abuse ICD Code: Z72.0 Status: Acute (9) Alcohol abuse ICD Code: F10.10 Status: Acute (10) Hypertension ICD Code: I10 Status: Acute Assessment and Plan 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 She also has an adnexal mass. -Appreciate oncology following. Less likely to be ovarian in origin. Status post CT-guided biopsy of the soft tissue mass arising from the rib cage. - Oncology ff- Radiation treatment ongoing - Urology ff- plan for cystoscopy in am Intractable pain Left sided rib pain x 3 weeks now - with erythema area- appears scab ? Neuralgia - possible previous Zoster ICD Code: R52 Status: Acute Plan: Patient has multiple bony lytic lesions concerning for metastatic disease , soft tissue mass about the ribs. She also has an adnexal mass. - Pain difficult to control. She cannot ambulate. Continue long-acting morphine to 45 mg every q12. fentanyl patch 25 g every 3 days. IV Dilaudid IV q 3 prn. start po Roxicodone 10 mg q 6 prn - Patient's pain has been very difficult to control. She cannot ambulate due to the pain. -Neurontin 300 mg hs Acute psychosis- recurred Head CT negative -psychiatry consulted -start low dose Seroquel Adnexal mass ICD Code: N94.9 Status: Acute Plan: Probably metastatic disease. Hypokalemia- resolved on KCL po daily. Ff BMP Hyponatremia- improved- ICD Code: E87.1 Status: Acute Tobacco abuse ICD Code: Z72.0 Status: Acute Plan: The patient was counseled to quit. Nicotine patch. Alcohol abuse ICD Code: F10.10 Status: Acute Hypertension, pain contributing factor Status: Acute Plan: Much improved with Norvasc, clonidine as needed. Increase Lopressor 25 mg po q 8 manage pain- contributing factor UTI- on Levaquin 500 mg po daily. Ff final c and s. Discharge Planning Discharge pending work up in progress Shelbie Whelan MD December 27, 2016 13:46
--- NOTE | 2016-12-27 13:55 | PD.CONS ---
Provisional Diagnosis Admission Date December 18, 2016 at 11:07 History of Present Illness Service Psychiatry Consult Requested By Primary Care Physician Darius Lerma MD Past Family Social History Coded Allergies: No Known Allergies (Verified , 12/17/16) Active Scripts Hydrocodone-Acetaminophen (Lortab)5-325 Mg Tab1-2 Tab PO Q6H PRN (PAIN) #20 TAB Ref 0 Prov:Marlene Cortes MD 12/15/16 Reported Medications Oxycodone-Acetaminophen (Percocet)7.5-325 mg Tab1 Tab PO Q6H PRN (PAIN) Ref 0 12/17/16 Naproxen Sodium (Aleve)220 Mg [id number] Mg PO BID PRN (Pain Management) Ref 0 12/17/16 Multiple Vitamins W/ Minerals (Multivitamin Women)1 Tab Tab1 Tab PO DAILY Ref 0 12/15/16 Ibuprofen (Advil)200 Mg [id number] Mg PO TID Ref 0 12/15/16 Fish Oil-Cholecalciferol ([place]-3 Fish Oil/Vitamin)1,000-1,000 Mg Cap1 Cap PO DAILY Ref 0 12/15/16 Current Medications Medications (Trade) Dose Ordered Sig/Hoang Route Start Time Stop Time Status Last Admin (Theragran M Tab) 1 tab DAILY PO 12/18/16 09:00 12/27/16 10:56 (NS Flush) 2 ml UNSCH PRN IV FLUSH 12/17/16 12:30 (NS Flush) 2 ml BID IV FLUSH 12/17/16 21:00 12/27/16 10:58 (Zofran Inj) 4 mg Q6H PRN IVP 12/17/16 12:30 (Colace) 100 mg Q12HR PO 12/17/16 12:30 12/27/16 10:56 (Milk Of Magnesia Liq) 30 ml Q12H PRN PO 12/17/16 12:30 (Restoril) 15 mg HS PRN PO 12/17/16 12:30 12/26/16 21:10 (Heparin Inj) 5,000 units Q12H SQ 12/17/16 13:00 Hold 12/22/16 13:33 (Narcan Inj) 0.4 mg UNSCH PRN IV 12/17/16 12:30 (Romazicon Inj) 0.2 mg Q1M PRN IV PUSH 12/17/16 16:45 (Ativan) 1 mg Q4H PRN PO 12/17/16 16:45 12/20/16 08:33 (Ativan Inj) 1 mg Q4H PRN IV PUSH 12/17/16 16:45 12/24/16 04:35 (Ativan) 2 mg Q2H PRN PO 12/17/16 16:45 (Ativan Inj) 2 mg Q2H PRN IV PUSH 12/17/16 16:45 (Ativan Inj) 2 mg Q1H PRN IV PUSH 12/17/16 16:45 12/26/16 01:15 (Ativan Inj) 2 mg Q15M PRN IV PUSH 12/17/16 16:45 (Catapres) 0.1 mg Q6H PRN PO 12/18/16 07:45 12/18/16 07:58 (Norvasc) 5 mg DAILY PO 12/18/16 09:00 12/27/16 10:56 (Flexeril) 5 mg Q8H PRN PO 12/18/16 09:00 12/27/16 05:02 (Pill Splitter) 1 ea UNSCH PRN OTHER 12/18/16 09:15 (Habitrol 21 Mg Patch.24 Hr) 1 patch DAILY T-DERMAL 12/18/16 14:30 12/27/16 10:56 Miscellaneous Information 1 DAILY T-DERMAL 12/19/16 09:00 12/27/16 09:00 (Duragesic 50 Mcg Patch.72 Hr) 1 patch Q72H TOPICAL 12/21/16 14:00 12/24/16 13:20 Miscellaneous Information 1 Q72H T-DERMAL 12/21/16 14:00 12/24/16 14:00 (Dilaudid Pf Inj) 0.5 mg Q3H PRN IV PUSH 12/22/16 14:15 12/25/16 17:46 (KCl) 20 meq DAILY PO 12/23/16 09:00 12/27/16 10:56 (Lopressor) 25 mg Q8HR PO 12/23/16 14:00 12/27/16 05:02 (Oramorph Sr) 45 mg Q12HR PO 12/23/16 09:00 12/27/16 10:57 (Miralax) 17 gm DAILY PO 12/23/16 09:00 12/27/16 10:56 (Roxicodone) 10 mg Q6H PRN PO 12/23/16 08:45 12/27/16 00:01 (Neurontin) 300 mg DAILY@20 PO 12/23/16 20:00 12/26/16 21:09 Haloperidol Lactate 2 mg 2 mg Q15M PRN IM 12/23/16 23:45 (D5-NS + KCl 20 Meq Inj) 1,000 ml @ 42 mls/hr [id number] IV 12/24/16 16:45 12/25/16 20:44 (Levaquin) 500 mg DAILY@11 PO 12/25/16 11:00 12/27/16 10:56 Miscellaneous Information ALL NURSING DEPARTME... UNSCH PRN .XX 12/27/16 10:15 12/28/16 10:14 (NS 1000 ml Inj) 1,000 ml @ 30 mls/hr Q24H IV 12/27/16 10:15 Physical Exam Vital Signs Vital Signs Date Time Temp Pulse Resp B/P Pulse Ox O2 Delivery O2 Flow Rate FiO2 12/27/16 10:40 98.9 98 14 148/72 95 Nasal Cannula 3 I/O 12/26/16 12/26/16 12/26/16 07:59 15:59 23:59 Intake Total 1006 ml 510 ml 120 ml Output Total 300 ml 350 ml 200 ml Balance 706 ml 160 ml -80 ml Assessment & Plan Problem List: (1) Metastatic disease Assessment & Plan: Today I did my third attempt to see this patient in the morning hours, but she was out for surgery. I spoke with a nurse and I make her aware that I will to come back later this afternoon or tomorrow morning. ICD Code: C79.9 Assessment & Plan Estimated LOS: Karthikeyan Seals MD December 27, 2016 13:54
--- NOTE | 2016-12-27 14:23 | PD.ONC.PN ---
Subjective Subjective Remarks Afebrile overnight. Patient became confused while in radiation today and had to be placed in restraints. She is calm now but still somewhat confused. Friends are at the bedside. Objective Data Date Time Temp Pulse Resp B/P Pulse Ox O2 Delivery O2 Flow Rate FiO2 12/27/16 10:40 98.9 98 14 148/72 95 Nasal Cannula 3 12/27/16 10:30 97 14 145/71 95 Nasal Cannula 3 12/27/16 10:15 103 14 154/82 95 Nasal Cannula 3 12/27/16 10:00 99.1 97 14 127/58 96 Nasal Cannula 3 12/27/16 07:45 98.7 108 24 128/70 94 12/27/16 04:00 98.0 98 18 148/67 95 12/27/16 00:00 98.1 115 20 158/73 95 12/26/16 20:00 98.6 102 18 157/70 94 12/26/16 16:46 98.0 101 12 135/78 99 12/27/16 12/27/16 12/27/16 06:59 14:59 22:59 Intake Total 900 ml Balance 900 ml Result Diagram: 12/26/16 1610 Laboratory Results Laboratory Tests Test 12/26/16 16:10 Sodium Level 139 MEQ/L Potassium Level 5.1 MEQ/L Chloride Level 105 MEQ/L Carbon Dioxide Level 26.9 MEQ/L Anion Gap 7 MEQ/L Blood Urea Nitrogen 6 MG/DL Creatinine 0.52 MG/DL Estimat Glomerular Filtration 116 ML/MIN Rate Random Glucose 333 MG/DL Calcium Level 9.0 MG/DL Culture Results Microbiology Date/Time Procedure Status Source Growth 12/24/16 21:24 Urine Culture - Final Complete Urine Clean Catch 10-50,000 CFU/ML MIXED NICOLE... Imaging Studies Last Impressions Head CT 12/24/16 0000 Signed Impressions: Service Date/Time: Saturday, December 24, 2016 14:02 - CONCLUSION: No evidence of intracranial metastatic disease. Les Pena MD Soft Tissue Biopsy 12/19/16 0000 Signed Impressions: Service Date/Time: Monday, December 19, 2016 12:09 - CONCLUSION: Uncomplicated CT guided biopsy. The destructive lesion involving the T11 rib on the right was biopsied. Oscar Khan MD Chest X-Ray 12/19/16 0000 Signed Impressions: Service Date/Time: Monday, December 19, 2016 14:39 - CONCLUSION: No evidence of pneumothorax. Bibasilar atelectasis. Robert Berman MD CT Angiography 12/17/16 0953 Signed Impressions: Service Date/Time: Saturday, December 17, 2016 11:23 - CONCLUSION: 1. Bibasilar patchy densities likely atelectasis. 2. No evidence for pulmonary embolism. 3. Metastatic lesions involving thoracic spine and right 11th ribs. Jeff Hardy MD Abdomen/Pelvis CT 12/17/16 0000 Signed Impressions: Service Date/Time: Saturday, December 17, 2016 11:23 - CONCLUSION: 1. Metastatic lesion to the left posterior acetabulum. 2. Left adnexal mass measures 4.0 x 2.7 cm could be ovarian in etiology. Pelvic sonogram may be warranted. 3. Wall thickening involving the anterior urinary bladder measuring 11 mm in thickness. Jeff Hardy MD Administered Medications Medications (Trade) Dose Ordered Sig/Hoang Route PRN Reason Start Time Stop Time Status Last Admin Dose Admin Multivitamins/ Minerals Therapeutic (Theragran M Tab) 1 tab DAILY PO 12/18/16 09:00 12/27/16 10:56 Sodium Chloride (NS Flush) 2 ml BID IV FLUSH 12/17/16 21:00 12/27/16 10:58 Docusate Sodium (Colace) 100 mg Q12HR PO 12/17/16 12:30 12/27/16 10:56 Temazepam (Restoril) 15 mg HS PRN PO INSOMNIA 12/17/16 12:30 12/26/16 21:10 Heparin Sodium (Porcine) (Heparin Inj) 5,000 units Q12H SQ 12/17/16 13:00 Hold 12/22/16 13:33 Lorazepam (Ativan) 1 mg Q4H PRN PO CIWA 8 - 10 12/17/16 16:45 12/20/16 08:33 Lorazepam (Ativan Inj) 1 mg Q4H PRN IV PUSH CIWA 8 - 10 12/17/16 16:45 12/24/16 04:35 Lorazepam (Ativan Inj) 2 mg Q1H PRN IV PUSH CIWA 15-20 12/17/16 16:45 12/26/16 01:15 Clonidine (Catapres) 0.1 mg Q6H PRN PO SBP>160, DBP>90 12/18/16 07:45 12/18/16 07:58 Amlodipine Besylate (Norvasc) 5 mg DAILY PO 12/18/16 09:00 12/27/16 10:56 Cyclobenzaprine HCl (Flexeril) 5 mg Q8H PRN PO MUSCLE SPASM 12/18/16 09:00 12/27/16 05:02 Nicotine (Habitrol 21 Mg Patch.24 Hr) 1 patch DAILY T-DERMAL 12/18/16 14:30 12/27/16 10:56 Miscellaneous Information 1 DAILY T-DERMAL 12/19/16 09:00 12/27/16 09:00 Fentanyl (Duragesic 50 Mcg Patch.72 Hr) 1 patch Q72H TOPICAL 12/21/16 14:00 12/24/16 13:20 Miscellaneous Information 1 Q72H T-DERMAL 12/21/16 14:00 12/24/16 14:00 Hydromorphone HCl (Dilaudid Pf Inj) 0.5 mg Q3H PRN IV PUSH PAIN SCALE 4 TO 10 12/22/16 14:15 12/25/16 17:46 Potassium Chloride (KCl) 20 meq DAILY PO 12/23/16 09:00 12/27/16 10:56 Metoprolol Tartrate (Lopressor) 25 mg Q8HR PO 12/23/16 14:00 12/27/16 05:02 Morphine Sulfate (Oramorph Sr) 45 mg Q12HR PO 12/23/16 09:00 12/27/16 10:57 Polyethylene Glycol (Miralax) 17 gm DAILY PO 12/23/16 09:00 12/27/16 10:56 Oxycodone HCl (Roxicodone) 10 mg Q6H PRN PO PAIN SCALE 6 TO 10 12/23/16 08:45 12/27/16 00:01 Gabapentin 300 mg 300 mg DAILY@20 PO 12/23/16 20:00 12/26/16 21:09 Potassium Chloride/Dextrose/ Sod Cl (D5-NS + KCl 20 Meq Inj) 1,000 ml @ 42 mls/hr [id number] IV 12/24/16 16:45 12/25/16 20:44 Levofloxacin (Levaquin) 500 mg DAILY@11 PO 12/25/16 11:00 12/27/16 10:56 Objective Remarks GENERAL: Elderly female, lying in bed, appears anxious SKIN: Warm and dry. HEAD: Normocephalic. EYES: No injection or drainage. NECK: Supple, trachea midline. CARDIOVASCULAR: Regular rate and rhythm RESPIRATORY: Breath sounds equal bilaterally. No accessory muscle use. GASTROINTESTINAL: Abdomen soft, non-tender, nondistended. EXTREMITIES: No cyanosis NEUROLOGICAL: awake. normal speech. Assessment/Plan Problem List: (1) Metastatic disease Status: Acute Plan: 12/27: s/p cystoscopy this morning. biopsy obtained and pathology is pending. 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 --patient was having severe pain so she started radiation on 12/25 to ribs and spine. 10 treatments are planned to ribs and 5 treatments are planned for spine --underwent cystoscopy on 12/27 and there was no evidence of bladder tumor or erythema present. a posterior wall bladder biopsy was obtained and pathology is pending. if pathology returns negative. DIRECTOR PHARMACEUTICAL oncology and pelvic u/s will need to be obtained. (2) Altered mental status Status: Acute Plan: --psychiatry consult is pending --likely delirium from extended hospital stay and multiple medications --CT brain WNL on 12/24 Attending Statement confuse pain is better. XRT today D/W Dr Polo s/p cystoscopy, bx done , path is pending consult DIRECTOR PHARMACEUTICAL onc and get pelvic US. The exam, history, and the medical decision-making described in the above note were completed with the assistance of the mid-level provider. I reviewed and agree with the findings presented. I attest that I had a [id number] encounter with the patient on the same day, and personally performed and documented my assessment and findings in the medical record. Problem Qualifiers (1) Altered mental status: Qualified Code: R41.82 - Altered mental status, unspecified altered mental status type Suzan Diez December 27, 2016 14:23 Wu Reyes MD December 27, 2016 23:13
[2016-12-27 14:29] LABS: AUTOMATED NEUTROPHIL # 8.6 TH/MM3 (1.8-7.7); BASOPHIL % 0.2 % (0.0-2.0); HEMATOCRIT 32.8 % (35.0-46.0); HEMO FLAGS DIFF FINAL; LYMPH % 2.3 % (9.0-44.0); LYMPHOCYTE # 0.2 TH/MM3 (1.0-4.8); MEAN CELL VOLUME 93.4 FL (80.0-100.0); MEAN CORPUSCULAR HEMOGLOBIN 32.4 PG (27.0-34.0); MEAN CORPUSCULAR HGB CONC 34.7 % (32.0-36.0); MONO % 3.5 % (0.0-8.0); PLATELET COUNT 418 TH/MM3 (150-450); RED BLOOD COUNT 3.51 MIL/MM3 (4.00-5.30); RED CELL DISTRIBUTION WIDTH 11.6 % (11.6-17.2); WHITE BLOOD COUNT 9.1 TH/MM3 (4.0-11.0)
[2016-12-27] MEDS: fentaNYL 50 MCG/HR PATCH TOPICAL SCH (14:40)
[2016-12-27] MEDS: REMOVE OLD DURAGESIC (FENTANYL) PATCH T-DERMAL SCH (14:45)
[2016-12-27 15:26] LABS: ALKALINE PHOSPHATASE 192 U/L (45-117); ALT (GPT) 32 U/L (10-53); ANION GAP 7 MEQ/L (5-15); AST (GOT) 35 U/L (15-37); BICARBONATE 30.2 MEQ/L (21.0-32.0); BLOOD UREA NITROGEN 6 MG/DL (7-18); CHLORIDE 101 MEQ/L (98-107); GLOMERULAR FILTRATION RATE 130 ML/MIN (>89); POTASSIUM 3.9 MEQ/L (3.5-5.1); SODIUM (NA) 138 MEQ/L (136-145); TOTAL BILIRUBIN ADULT 0.5 MG/DL (0.2-1.0)
[2016-12-27 17:30] VITALS: BP 178/72; PULSE 113; RESP 20; TEMP 98.7; O2SAT 94
--- NOTE | 2016-12-27 18:25 | RADRPT ---
EXAM DATE/TIME: 12/27/2016 16:01 [facility] COMPARISON: CT ABDOMEN & PELVIS W CONTRAST, December 17, 2016, 11:23. INDICATIONS : Left adnexal mass seen on prior CT. MEDICAL HISTORY : Arthritis. SURGICAL HISTORY : Right hip surgery. ENCOUNTER: Initial ACUITY: 1 day PAIN SCORE: 0/10 LOCATION: Bilateral pelvis MEASUREMENTS: UTERUS: 7.4 x 3.5 x 2.3 cm ENDOMETRIAL STRIPE: 2 mm RIGHT OVARY: 1.9 x 2.1 x 2.4 cm LEFT OVARY: 3.9 x 4.5 x 4.0 cm FINDINGS: UTERUS: The myometrium has homogeneous echotexture without mass. RIGHT OVARY: Ovary contains no mass or significant cystic lesion. LEFT OVARY: There is a complex hypoechoic mass in the left adnexa measuring 2.8 x 3.4 x 3.4 cm. This contains hyp oechoic areas and questionable septations. There is no internal color flow. There is surrounding colo r flow. MISCELLANEOUS: No free fluid. CONCLUSION: 1. Complex left adnexal mass which is nonspecific. This may represent a complex cystic lesion. 2. The uterus and right ovary are unremarkable. Ras Monge MD on December 27, 2016 at 18:21 Board Certified Radiologist. This report was verified electronically.
[2016-12-27 20:00] VITALS: BP 130/60; PULSE 105; RESP 17; TEMP 97.8; O2SAT 94
[2016-12-27] MEDS: GABAPENTIN 300 MG CAP PO SCH (20:54)
[2016-12-28] VITALS (9 sets, daily range): BP systolic 101–164; BP diastolic 52–77; PULSE 77–118; RESP 16–20; TEMP 97.1–98.9; O2SAT 91–98
[2016-12-28] MEDS: HALOPERIDOL LACTATE 5 MG/ML AMP IM PRN ×2 (00:39→20:35)
[2016-12-28] MEDS: D5-NS + KCL 20 MEQ INJ 1,000 ML IV SCH (03:30)
[2016-12-28] MEDS: METOPROLOL TARTRATE 25 MG TAB PO SCH ×3 (07:02→21:22)
[2016-12-28] MEDS: SODIUM CHLOR 0.9% 1000 ML IV SCH (07:44)
[2016-12-28] MEDS: SODIUM CHLORIDE 0.9% FLUSH 10 ML FLUSH IV FLUSH SCH ×2 (07:44→21:00)
--- NOTE | 2016-12-28 08:35 | PD.CONS ---
History of Present Illness Service [facility] Consult Requested By STEFF Montes Dr. Reason for Consult pelvic mass Primary Care Physician Darius Lerma MD Diagnoses: (1) Adnexal mass (2) Lytic lesion of bone on x-ray History of Present Illness This is a 71 year old female who came to ER on 12/15/16 after a 3 weeks history of bone pain. Imaging obtained shown a diffuse lytic lesion to T7, small lesion to T5 was scoliosis, it also shown lytic done destruction of left medial rib with a soft tissue mass. She was discharged from the ER and given instructions to follow up with her PCP and hem/onc. The pain continued to increase and she presented to ER again on 12/17/16. Imaging obtained shown lesion to the left acetabulum with a left complex adnexal mass measuring [address] also commented on anterior bladder wall thickening to 11mm. She was admitted for the above findings and the soft tissue mass was BX that shown transitional cell carcinoma but can not rule out a malignant Marilyn tumor. Dr. Betancourt of urology was consulted and cystoscopy was performed with bladder BX and cytology now pending. Dr. Lindsey hem/onc is following and he asked us to see Ms. Roche for pelvic mass. Review of Systems ROS Limitations: Altered Mental Status, Poor Historian Musculoskeletal: COMPLAINS OF: Back pain Past Family Social History Allergies: Coded Allergies: No Known Allergies (Verified , 12/17/16) Past Medical History rheumatoid arthritis tobacco abuse alcohol abuse Past Surgical History hip replacement Reported Medications none prior to admission Active Ordered Medications Current Medications Sodium Chloride (NS Flush) 2 ml UNSCH PRN IVF FLUSH AFTER USING IV ACCESS Last administered on 12/17/16 10:22; Start 12/17/16 at 10:00; Stop 12/17/16 at 12:36 ; Status DC Morphine Sulfate (Morphine Inj) 4 mg ONCE ONCE IV PUSH Last administered on 10:22; Start 12/17/16 at 10:00; Stop 12/17/16 at 10:01; Status DC Morphine Sulfate 4 mg 4 mg ONCE ONCE IV PUSH ; Start 12/17/16 at 10:00; Stop at 10:11; Status DC Sodium Chloride (NS 1000 ml Inj) 1,000 ml @ 125 mls/hr Q8H IV Last administered on 12/17/16 11:06; Start 12/17/16 at 10:45; Stop 12/17/16 at 18:44 ; Status DC Potassium Chloride (KCl) 40 meq ONCE ONCE PO Last administered on 12/17/16 11 :06; Start 12/17/16 at 10:45; Stop 12/17/16 at 10:47; Status DC Iohexol (Omnipaque 350 Inj) 100 ml STK-MED ONCE IV Last administered on 11:50; Start 12/17/16 at 11:50; Stop 12/17/16 at 11:51; Status DC Morphine Sulfate (Morphine Inj) 4 mg ONCE ONCE IV PUSH Last administered on 12:53; Start 12/17/16 at 12:30; Stop 12/17/16 at 12:31; Status DC Multivitamins/ Minerals Therapeutic (Theragran M Tab) 1 tab DAILY PO Last administered on 12/27/16 10:56; Start 12/18/16 at 09:00 Non-Formulary Medication 1 cap 1 cap DAILY PO NS; Start 12/18/16 at 09:00; Stop 12/18/16 at 09:00; Status DC Sodium Chloride (NS 1000 ml Inj) 1,000 ml @ 100 mls/hr Q10H IV Last administered on 12/18/16 08:45; Start 12/17/16 at 12:28; Stop 12/18/16 at 09:01 ; Status DC Sodium Chloride (NS Flush) 2 ml UNSCH PRN IV FLUSH FLUSH AFTER USING IV ACCESS ; Start 12/17/16 at 12:30 Sodium Chloride (NS Flush) 2 ml BID IV FLUSH Last administered on 12/27/16 10: 58; Start 12/17/16 at 21:00 Ondansetron HCl (Zofran Inj) 4 mg Q6H PRN IVP NAUSEA OR VOMITING; Start at 12:30 Docusate Sodium (Colace) 100 mg Q12HR PO Last administered on 12/27/16 10:56; Start 12/17/16 at 12:30 Magnesium Hydroxide (Milk Of Magnesia Liq) 30 ml Q12H PRN PO CONSTIPATION; Start 12/17/16 at 12:30 Temazepam (Restoril) 15 mg HS PRN PO INSOMNIA Last administered on 12/26/16 21 :10; Start 12/17/16 at 12:30 Heparin Sodium (Porcine) (Heparin Inj) 5,000 units Q12H SQ Last administered on 12/22/16 13:33; Start 12/17/16 at 13:00; Status Hold Naloxone HCl (Narcan Inj) 0.4 mg UNSCH PRN IV SEE LABEL COMMENTS; Start at 12:30 Morphine Sulfate (Oramorph Sr) 30 mg Q8HR PO Last administered on 12/19/16 06: 16; Start 12/17/16 at 14:00; Stop 12/19/16 at 11:39; Status DC Morphine Sulfate (Morphine Inj) 4 mg Q3H PRN IV PUSH BREAKTHROUGH PAIN Last administered on 12/22/16 10:40; Start 12/17/16 at 12:45; Stop 12/22/16 at 14:08 ; Status DC Flumazenil (Romazicon Inj) 0.2 mg Q1M PRN IV PUSH SEE LABEL COMMENTS; Start at 16:45 Lorazepam (Ativan) 1 mg Q4H PRN PO CIWA 8 - 10 Last administered on 12/20/16 08:33; Start 12/17/16 at 16:45 Lorazepam (Ativan Inj) 1 mg Q4H PRN IV PUSH CIWA 8 - 10 Last administered on 04:35; Start 12/17/16 at 16:45 Lorazepam (Ativan) 2 mg Q2H PRN PO CIWA 11-14; Start 12/17/16 at 16:45 Lorazepam (Ativan Inj) 2 mg Q2H PRN IV PUSH CIWA 11-14; Start 12/17/16 at 16:45 Lorazepam (Ativan Inj) 2 mg Q1H PRN IV PUSH CIWA 15-20 Last administered on 01:15; Start 12/17/16 at 16:45 Lorazepam (Ativan Inj) 2 mg Q15M PRN IV PUSH CIWA > 20; Start 12/17/16 at 16:45 Clonidine (Catapres) 0.1 mg Q6H PRN PO SBP>160, DBP>90 Last administered on 07:58; Start 12/18/16 at 07:45 Amlodipine Besylate (Norvasc) 5 mg DAILY PO Last administered on 12/27/16 10: 56; Start 12/18/16 at 09:00 Cyclobenzaprine HCl (Flexeril) 5 mg Q8H PRN PO MUSCLE SPASM Last administered on 12/27/16 20:54; Start 12/18/16 at 09:00 Miscellaneous (Pill Splitter) 1 ea UNSCH PRN OTHER SEE LABEL COMMENTS; Start at 09:15 Nicotine (Habitrol 21 Mg Patch.24 Hr) 1 patch DAILY T-DERMAL Last administered on 12/27/16 10:56; Start 12/18/16 at 14:30 Miscellaneous Information 1 DAILY T-DERMAL Last administered on 12/27/16 09:00 ; Start 12/19/16 at 09:00 Potassium Chloride (KCl) 30 meq ONCE ONCE PO Last administered on 12/19/16 09 :42; Start 12/19/16 at 09:00; Stop 12/19/16 at 09:01; Status DC Morphine Sulfate (Oramorph Sr) 30 mg Q8HR PO Last administered on 12/21/16 06: 22; Start 12/19/16 at 14:00; Stop 12/21/16 at 13:30; Status DC Morphine Sulfate (Oramorph Sr) 15 mg Q8HR PO Last administered on 12/21/16 06: 22; Start 12/19/16 at 14:00; Stop 12/21/16 at 13:30; Status DC Lidocaine/ Epinephrine (Xylocaine-Epi 1%-1:100,000 Inj) 10 ml STK-MED ONCE OTHER Last administered on 12/19/16 12:52; Start 12/19/16 at 12:52; Stop 12/19 at 12:53; Status DC Fentanyl Citrate (fentaNYL INJ) 50 mcg STK-MED ONCE IV Last administered on 12:00; Start 12/19/16 at 12:00; Stop 12/19/16 at 12:54; Status DC Potassium Chloride (KCl) 30 meq ONCE ONCE PO Last administered on 12/21/16 09 :23; Start 12/21/16 at 09:30; Stop 12/21/16 at 09:31; Status DC Fentanyl (Duragesic 25 Mcg Patch.72 Hr) 1 patch Q3D T-DERMAL ; Start 12/21/16 at 11:15; Status UNV Fentanyl (Duragesic 50 Mcg Patch.72 Hr) 50 patch Q72H TOPICAL ; Start 12/21/16 at 12:00; Stop 12/21/16 at 13:28; Status DC Miscellaneous Information 1 Q72H T-DERMAL ; Start 12/21/16 at 12:00; Stop at 13:30; Status DC Fentanyl (Duragesic 50 Mcg Patch.72 Hr) 1 patch Q72H TOPICAL ; Start 12/21/16 at 13:28; Stop 12/21/16 at 13:29; Status DC Fentanyl (Duragesic 50 Mcg Patch.72 Hr) 1 patch Q72H TOPICAL Last administered on 12/27/16 14:40; Start 12/21/16 at 14:00 Miscellaneous Information 1 Q72H T-DERMAL Last administered on 12/27/16 14:45 ; Start 12/21/16 at 14:00 Padimate O (Chapick) 1 applic ONCE ONCE TOPICAL Last administered on 15:41; Start 12/22/16 at 11:30; Stop 12/22/16 at 11:31; Status DC Morphine Sulfate (Oramorph Sr) 30 mg Q12HR PO Last administered on 12/22/16 21 :22; Start 12/22/16 at 21:00; Stop 12/23/16 at 08:42; Status DC Hydromorphone HCl (Dilaudid Pf Inj) 0.5 mg Q3H PRN IV PUSH PAIN SCALE 4 TO 10 Last administered on 12/25/16 17:46; Start 12/22/16 at 14:15 Metoprolol Tartrate (Lopressor) 12.5 mg Q8HR PO Last administered on 12/23/16 05:49; Start 12/22/16 at 15:00; Stop 12/23/16 at 08:42; Status DC Potassium Chloride (KCl) 40 meq NOW ONCE PO Last administered on 12/22/16 19: 32; Start 12/22/16 at 19:30; Stop 12/22/16 at 19:31; Status DC Potassium Chloride (KCl) 20 meq DAILY PO Last administered on 12/27/16 10:56; Start 12/23/16 at 09:00 Metoprolol Tartrate (Lopressor) 25 mg Q8HR PO Last administered on 12/28/16 07 :02; Start 12/23/16 at 14:00 Morphine Sulfate (Oramorph Sr) 45 mg Q12HR PO Last administered on 12/27/16 20 :54; Start 12/23/16 at 09:00 Polyethylene Glycol (Miralax) 17 gm DAILY PO Last administered on 12/27/16 10: 56; Start 12/23/16 at 09:00 Oxycodone HCl (Roxicodone) 10 mg Q6H PRN PO PAIN SCALE 6 TO 10 Last administered on 12/28/16 04:49; Start 12/23/16 at 08:45 Gabapentin (Neurontin) 300 mg DAILY@20 PO Last administered on 12/27/16 20:54 ; Start 12/23/16 at 20:00 Potassium Chloride (KCl) 10 meq ONCE ONCE PO Last administered on 12/23/16 22 :06; Start 12/23/16 at 21:15; Stop 12/23/16 at 21:21; Status DC Haloperidol Lactate (Haldol Inj) 2 mg Q15M PRN IM SEE LABEL COMMENTS Last administered on 12/28/16 00:39; Start 12/23/16 at 23:45 Iohexol (Omnipaque 350 Inj) 100 ml STK-MED ONCE IV Last administered on 14:06; Start 12/24/16 at 14:06; Stop 12/24/16 at 14:07; Status DC Quetiapine Fumarate 25 mg 25 mg ONCE ONCE PO ; Start 12/24/16 at 16:00; Stop at 16:01; Status DC Potassium Chloride/Dextrose/ Sod Cl (D5-NS + KCl 20 Meq Inj) 1,000 ml @ 42 mls/ hr [id number] IV Last administered on 12/28/16 03:30; Start 12/24/16 at 16:45; Stop 12/28/16 at 07:44; Status DC Levofloxacin (Levaquin) 500 mg DAILY@11 PO Last administered on 12/27/16 10:56 ; Start 12/25/16 at 11:00 Miscellaneous Information ALL NURSING DEPARTME... UNSCH PRN .XX SEE LABEL COMMENTS; Start 12/27/16 at 10:15; Stop 12/28/16 at 10:14 Fentanyl Citrate 100 mcg 100 mcg STK-MED ONCE .ROUTE ; Start 12/27/16 at 10:05; Stop 12/27/16 at 10:06; Status DC Sodium Chloride (NS 1000 ml Inj) 1,000 ml @ 30 mls/hr Q24H IV ; Start 12/27/16 at 10:15 Iohexol (OMNIPAQUE 350 INJ (Drying Frame Operator)) 50 ml STK-MED ONCE .XX Last administered on 12/27/16t 09:26; Start 12/27/16 at 09:26; Stop 12/27/16 at 10:15 ; Status DC Social History lives alone RN reports to me that when she is home she has no confusion or agitation alcohol abuse tobacco abuse Physical Exam Vital Signs Vital Signs Date Time Temp Pulse Resp B/P Pulse Ox O2 Delivery O2 Flow Rate FiO2 12/28/16 04:00 98.5 118 17 120/56 91 12/27/16 20:00 97.8 105 17 130/60 94 12/27/16 17:30 98.7 113 20 178/72 94 12/27/16 12:00 98.9 107 20 136/60 94 12/27/16 10:40 98.9 98 14 148/72 95 Nasal Cannula 3 12/27/16 10:30 97 14 145/71 95 Nasal Cannula 3 12/27/16 10:15 103 14 154/82 95 Nasal Cannula 3 12/27/16 10:00 99.1 97 14 127/58 96 Nasal Cannula 3 Physical Exam GENERAL: frail, well-developed patient, in no apparent distress., confused and poor historian SKIN: No rashes, ecchymoses or lesions. Cool and dry. HEAD: Atraumatic. Normocephalic. No temporal or scalp tenderness. EYES: Pupils equal round and reactive. Extraocular motions intact. No scleral icterus. No injection or drainage. CARDIOVASCULAR: Regular rate and rhythm without murmurs, gallops, or rubs. RESPIRATORY: Clear to auscultation. Breath sounds equal bilaterally. No wheezes , rales, or rhonchi. GASTROINTESTINAL: Abdomen soft, non-tender, nondistended. no guarding or acute abdomen MUSCULOSKELETAL: Extremities without clubbing, cyanosis, or edema. NEUROLOGICAL: Awake to voice but still sleepy, oriented to place Laboratory Laboratory Tests Test 12/27/16 14:11 White Blood Count 9.1 Red Blood Count 3.51 Hemoglobin 11.4 Hematocrit 32.8 Mean Corpuscular Volume 93.4 Mean Corpuscular Hemoglobin 32.4 Mean Corpuscular Hemoglobin 34.7 Concent Red Cell Distribution Width 11.6 Platelet Count 418 Mean Platelet Volume 7.1 Neutrophils (%) (Auto) 94.0 Lymphocytes (%) (Auto) 2.3 Monocytes (%) (Auto) 3.5 Eosinophils (%) (Auto) 0.0 Basophils (%) (Auto) 0.2 Neutrophils # (Auto) 8.6 Lymphocytes # (Auto) 0.2 Monocytes # (Auto) 0.3 Eosinophils # (Auto) 0.0 Basophils # (Auto) 0.0 CBC Comment DIFF FINAL Differential Comment Sodium Level 138 Potassium Level 3.9 Chloride Level 101 Carbon Dioxide Level 30.2 Anion Gap 7 Blood Urea Nitrogen 6 Creatinine 0.47 Estimat Glomerular Filtration 130 Rate Random Glucose 134 Calcium Level 10.1 Total Bilirubin 0.5 Aspartate Amino Transf 35 (AST/SGOT) Alanine Aminotransferase 32 (ALT/SGPT) Alkaline Phosphatase 192 Total Protein 7.4 Albumin 2.5 Date/Time Procedure Status Source Growth 12/24/16 21:24 Urine Culture - Final Complete Urine Clean Catch 10-50,000 CFU/ML MIXED NICOLE... Result Diagram: 12/27/16 1411 12/27/16 1411 Imaging Last Impressions Pelvis Ultrasound 12/27/16 0000 Signed Impressions: Service Date/Time: Tuesday, December 27, 2016 16:01 - CONCLUSION: 1. Complex left adnexal mass which is nonspecific. This may represent a complex cystic lesion. 2. The uterus and right ovary are unremarkable. Ras Monge MD Head CT 12/24/16 0000 Signed Impressions: Service Date/Time: Saturday, December 24, 2016 14:02 - CONCLUSION: No evidence of intracranial metastatic disease. Les Pena MD Soft Tissue Biopsy 12/19/16 0000 Signed Impressions: Service Date/Time: Monday, December 19, 2016 12:09 - CONCLUSION: Uncomplicated CT guided biopsy. The destructive lesion involving the T11 rib on the right was biopsied. Oscar Khan MD Chest X-Ray 12/19/16 0000 Signed Impressions: Service Date/Time: Monday, December 19, 2016 14:39 - CONCLUSION: No evidence of pneumothorax. Bibasilar atelectasis. Robert Berman MD CT Angiography 12/17/16 0953 Signed Impressions: Service Date/Time: Saturday, December 17, 2016 11:23 - CONCLUSION: 1. Bibasilar patchy densities likely atelectasis. 2. No evidence for pulmonary embolism. 3. Metastatic lesions involving thoracic spine and right 11th ribs. Jeff Hardy MD Abdomen/Pelvis CT 12/17/16 0000 Signed Impressions: Service Date/Time: Saturday, December 17, 2016 11:23 - CONCLUSION: 1. Metastatic lesion to the left posterior acetabulum. 2. Left adnexal mass measures 4.0 x 2.7 cm could be ovarian in etiology. Pelvic sonogram may be warranted. 3. Wall thickening involving the anterior urinary bladder measuring 11 mm in thickness. Jeff Hardy MD Assessment and Plan Problem List: (1) Altered mental status Status: Acute Plan: Psychiatry has been consulted. (2) Lytic lesion of bone on x-ray Status: Acute Plan: soft tissue mass has been BX showing transitional cell carcinoma with possible malignant Mair[place] Tumor Hem/onc following Urology following with s/p cystoscopy with cytology and bx pending (3) Adnexal mass Status: Acute Plan: IR to bx left pelvic mass for pathology unlikely an ovarian cancer given presentation. Discussed Condition With Dr. Patterson RN ALANNA Martinez-Hanna Physician Attestation This plan of care was discussed with Dr. Patterson and he is in agreement any further orders will follow. Problem Qualifiers (1) Altered mental status: Qualified Code: R41.82 - Altered mental status, unspecified altered mental status type Trenton Taveras December 28, 2016 08:35
[2016-12-28] MEDS: NICOTINE 21 MG/24 HR PATCH T-DERMAL SCH (08:59)
[2016-12-28] MEDS: REMOVE OLD PATCH T-DERMAL SCH (08:59)
[2016-12-28] MEDS: amLODIPine BESYLATE 5 MG TAB PO SCH (09:00)
[2016-12-28] MEDS: MULTIVITAMINS/MINERALS THERAPEUTIC TAB PO SCH (09:00)
[2016-12-28] MEDS: MORPHINE SULFATE 15 MG CONTROLLED RELEASE TAB PO SCH ×2 (09:00→21:00)
[2016-12-28] MEDS: POLYETHYLENE GLYCOL 17 GM PKG PO SCH (09:00)
[2016-12-28] MEDS: POTASSIUM CHLORIDE 20 MEQ CONTROLLED RELEASE TAB PO SCH (09:00)
[2016-12-28] MEDS: DOCUSATE SODIUM 100 MG CAP PO SCH ×2 (09:00→21:00)
[2016-12-28 09:46] LABS: AUTOMATED NEUTROPHIL # 5.8 TH/MM3 (1.8-7.7); BASOPHIL % 0.4 % (0.0-2.0); EOSINOPHIL # 0.1 TH/MM3 (0-0.4); EOSINOPHIL % 1.3 % (0.0-4.0); HEMATOCRIT 31.1 % (35.0-46.0); HEMO FLAGS DIFF FINAL; LYMPH % 9.7 % (9.0-44.0); LYMPHOCYTE # 0.7 TH/MM3 (1.0-4.8); MEAN CELL VOLUME 92.9 FL (80.0-100.0); MEAN CORPUSCULAR HEMOGLOBIN 31.6 PG (27.0-34.0); NEUT % 79.6 % (16.0-70.0); PLATELET COUNT 399 TH/MM3 (150-450); RED BLOOD COUNT 3.35 MIL/MM3 (4.00-5.30); RED CELL DISTRIBUTION WIDTH 11.4 % (11.6-17.2); WHITE BLOOD COUNT 7.3 TH/MM3 (4.0-11.0)
[2016-12-28 09:54] LABS: APTT (PATIENT) 32.1 SEC (24.3-30.1); INTERNATIONAL NORMALIZED RATIO 1.2 RATIO; PROTHROMBIN TIME - PATIENT 13.1 SEC (9.8-11.6)
--- NOTE | 2016-12-28 10:19 | HHI.PR ---
Subjective Remarks patient is now pleasant and cooperative but still very paranoid last night patient was very agitated "I freaked out" good po "no pain right now" going for ct guided biopsy today Objective Vitals Vital Signs Date Time Temp Pulse Resp B/P Pulse Ox O2 Delivery O2 Flow Rate FiO2 12/28/16 08:32 98.0 99 20 101/59 95 12/28/16 04:00 98.5 118 17 120/56 91 12/27/16 20:00 97.8 105 17 130/60 94 12/27/16 17:30 98.7 113 20 178/72 94 12/27/16 12:00 98.9 107 20 136/60 94 12/27/16 10:40 98.9 98 14 148/72 95 Nasal Cannula 3 12/27/16 10:30 97 14 145/71 95 Nasal Cannula 3 I/O 12/27/16 12/27/16 12/27/16 12/28/16 12/28/16 12/28/16 07:00 15:00 23:00 07:00 15:00 23:00 Intake Total 1690 ml Output Total 250 ml Balance 1690 ml -250 ml Intake Oral 790 ml Other 900 ml Output Urine Total 250 ml # Voids 4 6 2 Result Diagram: 12/28/16 0934 12/27/16 1411 Imaging Last Impressions Pelvis Ultrasound 12/27/16 0000 Signed Impressions: Service Date/Time: Tuesday, December 27, 2016 16:01 - CONCLUSION: 1. Complex left adnexal mass which is nonspecific. This may represent a complex cystic lesion. 2. The uterus and right ovary are unremarkable. Ras Monge MD Head CT 12/24/16 0000 Signed Impressions: Service Date/Time: Saturday, December 24, 2016 14:02 - CONCLUSION: No evidence of intracranial metastatic disease. Les Pena MD Soft Tissue Biopsy 12/19/16 0000 Signed Impressions: Service Date/Time: Monday, December 19, 2016 12:09 - CONCLUSION: Uncomplicated CT guided biopsy. The destructive lesion involving the T11 rib on the right was biopsied. Oscar Khan MD Chest X-Ray 12/19/16 0000 Signed Impressions: Service Date/Time: Monday, December 19, 2016 14:39 - CONCLUSION: No evidence of pneumothorax. Bibasilar atelectasis. Robert J. Siragusa, MD CT Angiography 12/17/16 0953 Signed Impressions: Service Date/Time: Saturday, December 17, 2016 11:23 - CONCLUSION: 1. Bibasilar patchy densities likely atelectasis. 2. No evidence for pulmonary embolism. 3. Metastatic lesions involving thoracic spine and right 11th ribs. Jeff Hardy MD Abdomen/Pelvis CT 12/17/16 0000 Signed Impressions: Service Date/Time: Saturday, December 17, 2016 11:23 - CONCLUSION: 1. Metastatic lesion to the left posterior acetabulum. 2. Left adnexal mass measures 4.0 x 2.7 cm could be ovarian in etiology. Pelvic sonogram may be warranted. 3. Wall thickening involving the anterior urinary bladder measuring 11 mm in thickness. Jeff Hardy MD Objective Remarks awake and alert, oriented to person and place and year, ff commands, appears manix anicteric no nuchal rigidity lungs- no rales regular rhythm, abdomen-soft nontender extremities no edema moves all extremities equally Procedures 12/27 - cystoscopy A/P Problem List: (1) Metastatic disease ICD Code: C79.9 Status: Acute (2) Intractable pain ICD Code: R52 Status: Acute (3) Lytic lesion of bone on x-ray ICD Code: M89.9 Status: Acute (4) Adnexal mass ICD Code: N94.9 Status: Acute (5) Back pain ICD Code: M54.9 Status: Acute (6) Hypokalemia ICD Code: E87.6 Status: Acute (7) Hyponatremia ICD Code: E87.1 Status: Acute (8) Tobacco abuse ICD Code: Z72.0 Status: Acute (9) Alcohol abuse ICD Code: F10.10 Status: Acute (10) Hypertension ICD Code: I10 Status: Acute Assessment and Plan Metastatic disease like bladder malignancy - Transitional cell carcinoma Patient has multiple bony lytic lesions concerning for metastatic disease, soft tissue mass about the ribs. She also has an adnexal mass. -Appreciate oncology following. Less likely to be ovarian in origin. Status post CT-guided biopsy of the soft tissue mass arising from the rib cage. - Oncology ff- Radiation treatment ongoing - Urology ff- plan for cystoscopy in am Intractable pain Left sided rib pain x 3 weeks now - with erythema area- appears scab ? Neuralgia - possible previous Zoster Patient has multiple bony lytic lesions concerning for metastatic disease, soft tissue mass about the ribs. She also has an adnexal mass. - Pain difficult to control. She cannot ambulate. Continue long-acting morphine to 45 mg every q12. fentanyl patch 25 g every 3 days. IV Dilaudid IV q 3 prn. start po Roxicodone 10 mg q 6 prn - Patient's pain has been very difficult to control. She cannot ambulate due to the pain. -Neurontin 300 mg hs Acute psychosis- recurred- Head CT negative -seen by psychiatry - d/w Dr. Travis- transfer to med psychiatry unit- she will need a more closer and structured environment to adjust her meds low dose Seroquel Adnexal mass ICD Code: N94.9 Status: Acute Plan: Probably metastatic disease. Hypokalemia- resolved on KCL po daily. Ff BMP Hyponatremia- improved- ICD Code: E87.1 Status: Acute Tobacco abuse ICD Code: Z72.0 Status: Acute Plan: The patient was counseled to quit. Nicotine patch. Alcohol abuse ICD Code: F10.10 Status: Acute Hypertension, pain contributing factor Status: Acute Plan: Much improved with Norvasc, clonidine as needed. Increase Lopressor 25 mg po q 8 manage pain- contributing factor UTI- on Levaquin 500 mg po daily. Ff final c and s. Transfer to med/psych floor under Dr. Travis's service and [facility] imer continue to ff her there Shelbie Whelan MD December 28, 2016 10:19
[2016-12-28] MEDS ORDERED: FENT50T TOPICAL (10:25)
[2016-12-28] MEDS ORDERED: OXYC-395 PO (10:25)
[2016-12-28] MEDS ORDERED: POLY17S PO (10:25)
[2016-12-28] MEDS ORDERED: METO25TA3 PO (10:25)
[2016-12-28] MEDS ORDERED: AMLO5 PO (10:25)
[2016-12-28] MEDS ORDERED: NEUR300C PO (10:25)
[2016-12-28] MEDS ORDERED: POTA20TA5 PO (10:25)
--- NOTE | 2016-12-28 10:29 | HHI.DS ---
Discharge Summary Admission Date December 18, 2016 at 11:07 Discharge Date: December 29, 2016 Admitting Diagnosis metastatic disease, hyponatremia, hypokalemia, intractable pain (1) Metastatic disease ICD Code: C79.9 Diagnosis: Principal (2) Intractable pain ICD Code: R52 Diagnosis: Principal (3) Acute psychosis ICD Code: F23 Diagnosis: Principal (4) Lytic lesion of bone on x-ray ICD Code: M89.9 Diagnosis: Principal (5) Adnexal mass ICD Code: N94.9 Diagnosis: Secondary (6) Back pain ICD Code: M54.9 Diagnosis: Secondary (7) Hypokalemia ICD Code: E87.6 Diagnosis: Secondary (8) Hyponatremia ICD Code: E87.1 Diagnosis: Secondary (9) Tobacco abuse ICD Code: Z72.0 Diagnosis: Secondary (10) Alcohol abuse ICD Code: F10.10 Diagnosis: Secondary (11) Hypertension ICD Code: I10 Diagnosis: Principal Procedures 12/27 - cystoscopy 12/28- CT guided biopsy left ovarian mass Brief History - From Admission 71-year-old female with history of rheumatoid arthritis who initially presented to the hospital 2 days ago with complaint of back pain. The patient was found to have to have thoracic spine lytic lesions concerning for underlying myeloma or metastatic disease. She was discharged home with pain medication to follow- up outpatient with her primary care physician for referral to oncology. However the patient reports Lortab did not help her pain at all. She is having difficulty ambulating and the pain is severe. It is located in the mid upper back mostly with radiation to the left lower ribs. It is difficult for her to take deep breaths. Further imaging in the emergency room today revealed lytic lesion in the left posterior acetabulum and an adnexal mass measuring 4 x 2.7 cm. The patient is also found to be hypernatremic and hypokalemic. She has not been eating or drinking much since she has been feeling poorly. She has not been able to get in with her primary care physician. Hospitalist service contacted for admission, further workup and treatment. CBC/BMP: 12/28/16 0934 12/27/16 1411 Significant Findings Laboratory Tests Test 12/26/16 12/27/16 12/28/16 16:10 14:11 09:34 Blood Urea Nitrogen 6 MG/DL (7-18) 6 MG/DL (7-18) Random Glucose 333 MG/DL 134 MG/DL (74-106) (74-106) Red Blood Count 3.51 MIL/MM3 3.35 MIL/MM3 (4.00-5.30) (4.00-5.30) Hemoglobin 11.4 GM/DL 10.6 GM/DL (11.6-15.3) (11.6-15.3) Hematocrit 32.8 % 31.1 % (35.0-46.0) (35.0-46.0) Neutrophils (%) (Auto) 94.0 % 79.6 % (16.0-70.0) (16.0-70.0) Lymphocytes (%) (Auto) 2.3 % (9.0-44.0) Neutrophils # (Auto) 8.6 TH/MM3 (1.8-7.7) Lymphocytes # (Auto) 0.2 TH/MM3 0.7 TH/MM3 (1.0-4.8) (1.0-4.8) Creatinine 0.47 MG/DL (0.50-1.00) Alkaline Phosphatase 192 U/L (45-117) Albumin 2.5 GM/DL (3.4-5.0) Red Cell Distribution Width 11.4 % (11.6-17.2) Monocytes (%) (Auto) 9.0 % (0.0-8.0) Prothrombin Time 13.1 SEC (9.8-11.6) Activated Partial 32.1 SEC Thromboplast Time (24.3-30.1) Imaging Last Impressions Pelvis Ultrasound 12/27/16 0000 Signed Impressions: Service Date/Time: Tuesday, December 27, 2016 16:01 - CONCLUSION: 1. Complex left adnexal mass which is nonspecific. This may represent a complex cystic lesion. 2. The uterus and right ovary are unremarkable. Ras Mnoge MD Head CT 12/24/16 0000 Signed Impressions: Service Date/Time: Saturday, December 24, 2016 14:02 - CONCLUSION: No evidence of intracranial metastatic disease. Les Pena MD Soft Tissue Biopsy 12/19/16 0000 Signed Impressions: Service Date/Time: Monday, December 19, 2016 12:09 - CONCLUSION: Uncomplicated CT guided biopsy. The destructive lesion involving the T11 rib on the right was biopsied. Oscar Khan MD Chest X-Ray 12/19/16 0000 Signed Impressions: Service Date/Time: Monday, December 19, 2016 14:39 - CONCLUSION: No evidence of pneumothorax. Bibasilar atelectasis. Robert Berman MD CT Angiography 12/17/16 0953 Signed Impressions: Service Date/Time: Saturday, December 17, 2016 11:23 - CONCLUSION: 1. Bibasilar patchy densities likely atelectasis. 2. No evidence for pulmonary embolism. 3. Metastatic lesions involving thoracic spine and right 11th ribs. Jeff Hardy MD Abdomen/Pelvis CT 12/17/16 0000 Signed Impressions: Service Date/Time: Saturday, December 17, 2016 11:23 - CONCLUSION: 1. Metastatic lesion to the left posterior acetabulum. 2. Left adnexal mass measures 4.0 x 2.7 cm could be ovarian in etiology. Pelvic sonogram may be warranted. 3. Wall thickening involving the anterior urinary bladder measuring 11 mm in thickness. 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 Neuralgia - Left Adnexal Mass S/p CT guided biopsy 12/28 12/19- soft tissue biopsy done of T11 right rib mass c/w transitional cell carcinoma. 12/27 S/P cystoscopy and biopsy of bladder wall- result no significant pathology 12/28- CT guided biopsy of left adnexal mass- patho still pending - Medical Oncology and Radiation Oncology treatment ongoing. started radiation treatment 12/25 to ribs and spin - 10 treatment planned to ribs and 5 treatments for spine - Urology ff- - Dr. Patterson consulted Patient has multiple bony lytic lesions concerning for metastatic disease, soft tissue mass about the ribs. She also has an adnexal mass. - Pain difficult to control. She cannot ambulate. Continue long-acting morphine to 45 mg every q12. fentanyl patch 25 g every 3 days. po Roxicodone 10 mg q 6 pr adjust pain meds - Patient's pain has been very difficult to control. She cannot ambulate due to the pain. -Neurontin 300 mg hs PT ff Acute psychosis- recurred- Head CT negative -seen by psychiatry - d/w Dr. Travis- transfer to med psychiatry unit- she will need a more closer and structured environment to adjust her meds and will be more consistent and supervised in taking meds- patient refusing some meds - close monitoring and adjustment of pain meds- - started on Zyprexa and monitor bed available - transfer to med psych unit today- 12/29 Hypertension, Tachycardia- pain and psychoses - contributing factors Plan: On Norvasc, clonidine as needed. Increase Lopressor 25 mg po q 8 CTA done earlier negative for PE manage pain- contributing factor- On Morphine bid and prn Oxycodone- increase gradually with close monitoring of [facility] psychiatry ff closely along with us Hypokalemia- resolved on KCL po daily. Ff BMP Hyponatremia- improved- ICD Code: E87.1 Status: Acute Tobacco abuse- counselled ICD Code: Z72.0 Alcohol abuse ICD Code: F10.10 Status: Acute Pyuria UTI- on Levaquin 500 mg po daily. - final c and s TEds Transfer to med/psych floor under Dr. Travis's service and [facility] will continue to ff her there. PT/OT consult DVT prophylaxis with Lovenox if no plan for any further diagnostic study/biopsy - awaiting Gyne=Onco input. Pt Condition on Discharge: Fair Discharge Disposition: Disc to Psych Care Fac Discharge Time: <= 30 minutes Discharge Instructions DIET: Follow Instructions for: As Tolerated, No Restrictions, Heart Healthy Diet Speech Therapy-Diet Recommends: Regular Activities you can perform: Weight Bearing as Lucille Follow up Referrals: Internal Medicine - Today with Shelbie Whelan MD New Medications: Amlodipine (Norvasc) 5 Mg Tab 5 MG PO DAILY HTN Days 30 TAB Fentanyl Patch 72 HR (Duragesic Patch 72 HR) 50 Mcg/Hr Patch 1 PATCH TOPICAL Q72H Pain Management Days 30 PATCH Gabapentin (Neurontin) 300 Mg Cap 300 MG PO DAILY@20 Pain Management #15 CAP Metoprolol Tartrate (Metoprolol Tartrate) 25 Mg Tab 25 MG PO Q8HR HTN Days 30 TAB Oxycodone (Oxycodone) 10 Mg Tab 10 MG PO Q6H PRN PAIN SCALE 6 TO 10 Days 10 TAB Polyethylene Glycol 3350 Powder (Polyethylene Glycol 3350 Powder) 17 Gm Pow 17 GM PO DAILY cosnti Days 30 BOTTLE Potassium Chloride Microencaps (Potassium Chloride Microencaps) 20 Meq Tab 20 MEQ PO DAILY elec Days 30 TAB Shelbie Whelan MD December 28, 2016 10:29
[2016-12-28] MEDS: LEVOFLOXACIN 500 MG TAB PO SCH (11:06)
--- NOTE | 2016-12-28 11:12 | PD.ONC.PN ---
Subjective Subjective Remarks Afebrile overnight. Pt resting in bed in no distress. Denies specific complaints but states "I just don't feel good." Objective Data Date Time Temp Pulse Resp B/P Pulse Ox O2 Delivery O2 Flow Rate FiO2 12/28/16 08:32 98.0 99 20 101/59 95 12/28/16 04:00 98.5 118 17 120/56 91 12/27/16 20:00 97.8 105 17 130/60 94 12/27/16 17:30 98.7 113 20 178/72 94 12/27/16 12:00 98.9 107 20 136/60 94 Result Diagram: 12/28/16 0934 12/27/16 1411 Laboratory Results Laboratory Tests Test 12/27/16 12/28/16 14:11 09:34 White Blood Count 9.1 TH/MM3 7.3 TH/MM3 Red Blood Count 3.51 MIL/MM3 3.35 MIL/MM3 Hemoglobin 11.4 GM/DL 10.6 GM/DL Hematocrit 32.8 % 31.1 % Mean Corpuscular Volume 93.4 FL 92.9 FL Mean Corpuscular Hemoglobin 32.4 PG 31.6 PG Mean Corpuscular Hemoglobin 34.7 % 34.0 % Concent Red Cell Distribution Width 11.6 % 11.4 % Platelet Count 418 TH/MM3 399 TH/MM3 Mean Platelet Volume 7.1 FL 7.1 FL Neutrophils (%) (Auto) 94.0 % 79.6 % Lymphocytes (%) (Auto) 2.3 % 9.7 % Monocytes (%) (Auto) 3.5 % 9.0 % Eosinophils (%) (Auto) 0.0 % 1.3 % Basophils (%) (Auto) 0.2 % 0.4 % Neutrophils # (Auto) 8.6 TH/MM3 5.8 TH/MM3 Lymphocytes # (Auto) 0.2 TH/MM3 0.7 TH/MM3 Monocytes # (Auto) 0.3 TH/MM3 0.7 TH/MM3 Eosinophils # (Auto) 0.0 TH/MM3 0.1 TH/MM3 Basophils # (Auto) 0.0 TH/MM3 0.0 TH/MM3 CBC Comment DIFF FINAL DIFF FINAL Differential Comment Sodium Level 138 MEQ/L Potassium Level 3.9 MEQ/L Chloride Level 101 MEQ/L Carbon Dioxide Level 30.2 MEQ/L Anion Gap 7 MEQ/L Blood Urea Nitrogen 6 MG/DL Creatinine 0.47 MG/DL Estimat Glomerular Filtration 130 ML/MIN Rate Random Glucose 134 MG/DL Calcium Level 10.1 MG/DL Total Bilirubin 0.5 MG/DL Aspartate Amino Transf 35 U/L (AST/SGOT) Alanine Aminotransferase 32 U/L (ALT/SGPT) Alkaline Phosphatase 192 U/L Total Protein 7.4 GM/DL Albumin 2.5 GM/DL Prothrombin Time 13.1 SEC Prothromb Time International 1.2 RATIO Ratio Activated Partial 32.1 SEC Thromboplast Time Administered Medications Medications (Trade) Dose Ordered Sig/Hoang Route PRN Reason Start Time Stop Time Status Last Admin Dose Admin Multivitamins/ Minerals Therapeutic (Theragran M Tab) 1 tab DAILY PO 12/18/16 09:00 12/28/16 09:00 Sodium Chloride (NS Flush) 2 ml BID IV FLUSH 12/17/16 21:00 12/27/16 10:58 Docusate Sodium (Colace) 100 mg Q12HR PO 12/17/16 12:30 12/28/16 09:00 Magnesium Hydroxide (Milk [employer]) 30 ml Q12H PRN PO CONSTIPATION 12/17/16 12:30 12/28/16 08:59 Temazepam (Restoril) 15 mg HS PRN PO INSOMNIA 12/17/16 12:30 12/26/16 21:10 Heparin Sodium (Porcine) (Heparin Inj) 5,000 units Q12H SQ 12/17/16 13:00 Hold 12/22/16 13:33 Lorazepam (Ativan) 1 mg Q4H PRN PO CIWA 8 - 10 12/17/16 16:45 12/20/16 08:33 Lorazepam (Ativan Inj) 1 mg Q4H PRN IV PUSH CIWA 8 - 10 12/17/16 16:45 12/24/16 04:35 Lorazepam (Ativan Inj) 2 mg Q1H PRN IV PUSH CIWA 15-20 12/17/16 16:45 12/26/16 01:15 Clonidine (Catapres) 0.1 mg Q6H PRN PO SBP>160, DBP>90 12/18/16 07:45 12/18/16 07:58 Amlodipine Besylate (Norvasc) 5 mg DAILY PO 12/18/16 09:00 12/28/16 09:00 Cyclobenzaprine HCl (Flexeril) 5 mg Q8H PRN PO MUSCLE SPASM 12/18/16 09:00 12/27/16 20:54 Nicotine (Habitrol 21 Mg Patch.24 Hr) 1 patch DAILY T-DERMAL 12/18/16 14:30 12/28/16 08:59 Miscellaneous Information 1 DAILY T-DERMAL 12/19/16 09:00 12/28/16 08:59 Fentanyl (Duragesic 50 Mcg Patch.72 Hr) 1 patch Q72H TOPICAL 12/21/16 14:00 12/27/16 14:40 Miscellaneous Information 1 Q72H T-DERMAL 12/21/16 14:00 12/27/16 14:45 Hydromorphone HCl (Dilaudid Pf Inj) 0.5 mg Q3H PRN IV PUSH PAIN SCALE 4 TO 10 12/22/16 14:15 12/25/16 17:46 Potassium Chloride (KCl) 20 meq DAILY PO 12/23/16 09:00 12/28/16 09:00 Metoprolol Tartrate (Lopressor) 25 mg Q8HR PO 12/23/16 14:00 12/28/16 07:02 Morphine Sulfate (Oramorph Sr) 45 mg Q12HR PO 12/23/16 09:00 12/28/16 09:00 Polyethylene Glycol (Miralax) 17 gm DAILY PO 12/23/16 09:00 12/28/16 09:00 Oxycodone HCl (Roxicodone) 10 mg Q6H PRN PO PAIN SCALE 6 TO 10 12/23/16 08:45 12/28/16 04:49 Gabapentin (Neurontin) 300 mg DAILY@20 PO 12/23/16 20:00 12/27/16 20:54 Haloperidol Lactate (Haldol Inj) 2 mg Q15M PRN IM SEE LABEL COMMENTS 12/23/16 23:45 12/28/16 00:39 Levofloxacin (Levaquin) 500 mg DAILY@11 PO 12/25/16 11:00 12/27/16 10:56 Objective Remarks GENERAL: Elderly female, lying in bed. Somewhat anxious appearing. Requesting bedpan. SKIN: Warm and dry. HEAD: Normocephalic. EYES: No injection or drainage. NECK: Supple, trachea midline. CARDIOVASCULAR: Regular rate and rhythm. RESPIRATORY: Breath sounds equal bilaterally. No accessory muscle use. GASTROINTESTINAL: Abdomen soft, non-tender, nondistended. EXTREMITIES: No cyanosis. No edema. NEUROLOGICAL: A&Ox2. Normal speech. Moving all extremities. Assessment/Plan Problem List: (1) Metastatic disease Status: Acute Plan: 12/28: Pt to have biopsy of pelvic mass today by IR. Pathology pending from cystoscopy. Discussed with pt's RN, and also ALANNA Merino. Await path results. 12/27: s/p cystoscopy this morning. biopsy obtained and pathology is pending. 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 --patient was having severe pain so she started radiation on 12/25 to ribs and spine. 10 treatments are planned to ribs and 5 treatments are planned for spine --underwent cystoscopy on 12/27 and there was no evidence of bladder tumor or erythema present. a posterior wall bladder biopsy was obtained and pathology is pending. if pathology returns negative. [facility] oncology and pelvic u/s will need to be obtained. (2) Altered mental status Status: Acute Plan: --psychiatry consult is pending --likely delirium from extended hospital stay and multiple medications --CT brain WNL on 12/24 Attending Statement c/o pain and exhaustion. bladder bx = no malignancy pelvic US = Left cystic complex mass. Appreciate [facility] onc input. bx of left adnexal mass today by IR. path is pending. continue XRT d/w pt and neighbor friend. The exam, history, and the medical decision-making described in the above note were completed with the assistance of the mid-level provider. I reviewed and agree with the findings presented. I attest that I had a dyal-yw-wels encounter with the patient on the same day, and personally performed and documented my assessment and findings in the medical record. Problem Qualifiers (1) Altered mental status: Qualified Code: R41.82 - Altered mental status, unspecified altered mental status type Brit Abreu December 28, 2016 11:12 Wu Reyes MD December 28, 2016 21:30
[2016-12-28] MEDS ORDERED: OLANZapine IM 10 MG VIAL IM PRN (15:30)
--- NOTE | 2016-12-28 15:36 | PD.CONS ---
Provisional Diagnosis Admission Date December 18, 2016 at 11:07 [place] I. Unspecified psychosis vs delirium due to underlying medical conditions [place] II. Deferred [place] III. Hypertension, Metastatic cancer [place] IV. Chronic medical illnesses [place] V. 35 History of Present Illness Service Psychiatry Consult Requested By Primary Care Physician Darius Lerma MD HPI The patient is a 71-year-old woman, domiciled alone in [place], single, no kids, without any previous psychiatric history, no previous psychiatric hospitalizations, no previous suicidal attempts, hospitalized due to uncontrollable untreatable back pain, diagnosed with metastatic bone lesions , suspected primary bladder cancer. Patient was consulted to psychiatry due to episodic agitation, psychosis. On psychiatric evaluation today patient is found calm, cooperative and pleasant. Patient reports good mood, she says that she is feeling today better than previous days. She is in a good spirit, denies depressive symptoms, denies anhedonia, denies hopelessness, denies helplessness, denies suicidal or homicidal ideation. Patient says that she has been agitated because primary medical team is not clear about the nature of her pain and she doesn't know where the cancer comes from. However, patient doesn' t seem to be very concerned about it. Patient says that she hasn't been sleeping at all "because every night that her people coming inside this room to steal my belongings and to try to kill". She says that and man friend in [place] which name is Jarod has been following her here in the hospital and she has seen him several times around. Patient says that also at night nurses talk about her and she can listen throughout the funk with a talking about. Patient is oriented 3, seems to be logical, coherent and relevant. Affect full cognitive assessment could not be performed, because patient became irritable and refuses. She denies the use of illicit drugs, but reports almost daily use of 2-3 cups of wine. Review of Systems Constitutional: DENIES: Diaphoretic episodes, Fatigue, Fever, Weight gain, Weight loss, Chills, Dizziness, Change in appetite, Night Sweats Endocrine: DENIES: Abnorml menstrual pattern, Heat/cold intolerance, Polydipsia , Polyuria, Polyphagia Eyes: DENIES: Blurred vision, Diplopia, Eye inflammation, Eye pain, Vision loss , Photosensitivity, Double Vision Ears, nose, mouth, throat: DENIES: Tinnitus, Hearing loss, Vertigo, Nasal discharge, Oral lesions, Throat pain, Hoarseness, Ear Pain, Running Nose, Epistaxis, Sinus Pain, Toothache, Odynophagia Respiratory: DENIES: Apneas, Cough, Snoring, Wheezing, Hemoptysis, Sputum production, Shortness of breath Cardiovascular: DENIES: Chest pain, Palpitations, Syncope, Dyspnea on Exertion , PND, Lower Extremity Edema, Orthopnea, Claudication Gastrointestinal: DENIES: Abdominal pain, Black stools, Bloody stools, Constipation, Diarrhea, Nausea, Vomiting, Difficulty Swallowing, Anorexia Musculoskeletal: COMPLAINS OF: Back pain, DENIES: Joint pain, Muscle aches, Stiffness, Joint Swelling, Neck pain Integumentary: DENIES: Abnormal pigmentation, Pruritus, Rash, Nail changes, Breast masses, Breast skin changes, Nipple discharge Hematologic/lymphatic: DENIES: Bruising, Lymphadenopathy Immunologic/allergic: DENIES: Eczema, Urticaria Neurologic: DENIES: Abnormal gait, Headache, Localized weakness, Paresthesias, Seizures, Speech Problems, Tremor, Poor Balance Psychiatric: COMPLAINS OF: Confusion, Hallucinations, Delusions, DENIES: Anxiety, Mood changes, Depression, Agitation, Suicidal Ideation, Homicidal Ideation Past Family Social History Coded Allergies: No Known Allergies (Verified , 12/17/16) Active Scripts Potassium Chloride Microencaps 20 Meq Tab20 Meq PO DAILY 30 Days Prov:Shelbie Whelan MD 12/28/16 Polyethylene Glycol 3350 Powder 17 Gm Pow17 Gm PO DAILY 30 Days Prov:Shelbie Whelan MD 12/28/16 Oxycodone 10 Mg Tab10 Mg PO Q6H PRN (PAIN SCALE 6 TO 10) 10 Days Prov:Shelbie Whelan MD 12/28/16 Metoprolol Tartrate 25 Mg Tab25 Mg PO Q8HR 30 Days Prov:Shelbie Whelan MD 12/28/16 Gabapentin (Neurontin)300 Mg Ihs128 Mg PO DAILY@20 #15 CAP Prov:Shelbie Whelan MD 12/28/16 Fentanyl Patch 72 HR (Duragesic Patch 72 HR)50 Mcg/Hr Patch1 Patch TOPICAL Q72H 30 Days Prov:Shelbie Whelan MD 12/28/16 Amlodipine (Norvasc)5 Mg Tab5 Mg PO DAILY 30 Days Prov:Shelbie Whelan MD 12/28/16 Hydrocodone-Acetaminophen (Lortab)5-325 Mg Tab1-2 Tab PO Q6H PRN (PAIN) #20 TAB Ref 0 Prov:Marlene Cortes MD 12/15/16 Reported Medications Oxycodone-Acetaminophen (Percocet)7.5-325 mg Tab1 Tab PO Q6H PRN (PAIN) Ref 0 12/17/16 Naproxen Sodium (Aleve)220 Mg Dgg100 Mg PO BID PRN (Pain Management) Ref 0 12/17/16 Multiple Vitamins W/ Minerals (Multivitamin Women)1 Tab Tab1 Tab PO DAILY Ref 0 12/15/16 Ibuprofen (Advil)200 Mg Nup825 Mg PO TID Ref 0 12/15/16 Fish Oil-Cholecalciferol ([place]-3 Fish Oil/Vitamin)1,000-1,000 Mg Cap1 Cap PO DAILY Ref 0 12/15/16 Current Medications Medications (Trade) Dose Ordered Sig/Hoang Route Start Time Stop Time Status Last Admin (Theragran M Tab) 1 tab DAILY PO 12/18/16 09:00 12/28/16 09:00 (NS Flush) 2 ml UNSCH PRN IV FLUSH 12/17/16 12:30 (NS Flush) 2 ml BID IV FLUSH 12/17/16 21:00 12/27/16 10:58 (Zofran Inj) 4 mg Q6H PRN IVP 12/17/16 12:30 (Colace) 100 mg Q12HR PO 12/17/16 12:30 12/28/16 09:00 (Milk Of Magnesia Liq) 30 ml Q12H PRN PO 12/17/16 12:30 12/28/16 08:59 (Restoril) 15 mg HS PRN PO 12/17/16 12:30 12/26/16 21:10 (Heparin Inj) 5,000 units Q12H SQ 12/17/16 13:00 Hold 12/22/16 13:33 (Narcan Inj) 0.4 mg UNSCH PRN IV 12/17/16 12:30 (Romazicon Inj) 0.2 mg Q1M PRN IV PUSH 12/17/16 16:45 (Ativan) 1 mg Q4H PRN PO 12/17/16 16:45 12/20/16 08:33 (Ativan Inj) 1 mg Q4H PRN IV PUSH 12/17/16 16:45 12/24/16 04:35 (Ativan) 2 mg Q2H PRN PO 12/17/16 16:45 (Ativan Inj) 2 mg Q2H PRN IV PUSH 12/17/16 16:45 (Ativan Inj) 2 mg Q1H PRN IV PUSH 12/17/16 16:45 12/26/16 01:15 (Ativan Inj) 2 mg Q15M PRN IV PUSH 12/17/16 16:45 (Catapres) 0.1 mg Q6H PRN PO 12/18/16 07:45 12/18/16 07:58 (Norvasc) 5 mg DAILY PO 12/18/16 09:00 12/28/16 09:00 (Flexeril) 5 mg Q8H PRN PO 12/18/16 09:00 12/27/16 20:54 (Pill Splitter) 1 ea UNSCH PRN OTHER 12/18/16 09:15 (Habitrol 21 Mg Patch.24 Hr) 1 patch DAILY T-DERMAL 12/18/16 14:30 12/28/16 08:59 Miscellaneous Information 1 DAILY T-DERMAL 12/19/16 09:00 12/28/16 08:59 (Duragesic 50 Mcg Patch.72 Hr) 1 patch Q72H TOPICAL 12/21/16 14:00 12/27/16 14:40 Miscellaneous Information 1 Q72H T-DERMAL 12/21/16 14:00 12/27/16 14:45 (Dilaudid Pf Inj) 0.5 mg Q3H PRN IV PUSH 12/22/16 14:15 12/25/16 17:46 (KCl) 20 meq DAILY PO 12/23/16 09:00 12/28/16 09:00 (Lopressor) 25 mg Q8HR PO 12/23/16 14:00 12/28/16 07:02 (Oramorph Sr) 45 mg Q12HR PO 12/23/16 09:00 12/28/16 09:00 (Miralax) 17 gm DAILY PO 12/23/16 09:00 12/28/16 09:00 (Roxicodone) 10 mg Q6H PRN PO 12/23/16 08:45 12/28/16 04:49 (Neurontin) 300 mg DAILY@20 PO 12/23/16 20:00 12/27/16 20:54 (Haldol Inj) 2 mg Q15M PRN IM 12/23/16 23:45 12/28/16 00:39 Levofloxacin 500 mg 500 mg DAILY@11 PO 12/25/16 11:00 12/28/16 11:06 (NS 1000 ml Inj) 1,000 ml @ 30 mls/hr Q24H IV 12/27/16 10:15 Family History Patient denies psychiatric family history Social History Patient was born and raised in [place], she lives alone in [place], she is single, no kids, her highest level of education is high school Patient's Strengths (min. 2) Verbal communication, good cognition Physical Exam Vital Signs Vital Signs Date Time Temp Pulse Resp B/P Pulse Ox O2 Delivery O2 Flow Rate FiO2 12/28/16 12:55 101 110/57 12/28/16 12:46 97.1 20 98 12/27/16 10:40 Nasal Cannula 3 I/O 12/27/16 12/27/16 12/28/16 08:00 16:00 00:00 Intake Total 1690 ml Output Total 250 ml Balance 1440 ml Lab Results Test 12/27/16 14:11 White Blood Count 9.1 Red Blood Count 3.51 Hemoglobin 11.4 Hematocrit 32.8 Mean Corpuscular Volume 93.4 Mean Corpuscular Hemoglobin 32.4 Mean Corpuscular Hemoglobin 34.7 Concent Red Cell Distribution Width 11.6 Platelet Count 418 Mean Platelet Volume 7.1 Neutrophils (%) (Auto) 94.0 Lymphocytes (%) (Auto) 2.3 Monocytes (%) (Auto) 3.5 Eosinophils (%) (Auto) 0.0 Basophils (%) (Auto) 0.2 Neutrophils # (Auto) 8.6 Lymphocytes # (Auto) 0.2 Monocytes # (Auto) 0.3 Eosinophils # (Auto) 0.0 Basophils # (Auto) 0.0 CBC Comment DIFF FINAL Differential Comment Sodium Level 138 Potassium Level 3.9 Chloride Level 101 Carbon Dioxide Level 30.2 Anion Gap 7 Blood Urea Nitrogen 6 Creatinine 0.47 Estimat Glomerular Filtration 130 Rate Random Glucose 134 Calcium Level 10.1 Total Bilirubin 0.5 Aspartate Amino Transf 35 (AST/SGOT) Alanine Aminotransferase 32 (ALT/SGPT) Alkaline Phosphatase 192 Total Protein 7.4 Albumin 2.5 Mental Status Examination Appearance elderly woman, good hygiene, [facility], she is calm, superficially cooperative Speech: Unremarkable Orientation: x3 Memory: Unremarkable Thought Process: Circumstantial, Goal Directed, Linear Thought Content: Bizarre thinking, Paranoid Hallucination Type: Auditory, Visual Suicidal Ideation: No Previous Suicide Attempts: No Homicidal Ideation: No Previous Homicide Attempts: No Judgment: Poor Affect: Irritable Mood: Angry Motor Activity: Normal gait Assessment & Plan Problem List: (1) Metastatic disease ICD Code: C79.9 (2) Unspecified psychosis ICD Code: F29 Assessment & Plan Estimated LOS: Karthikeyan Seals MD December 28, 2016 15:36
[2016-12-28] MEDS ORDERED: LIDOCAINE 1%/EPINEPHrine 1:200,000 PF SOLN 10 ML VIAL OTHER ONE (17:08)
[2016-12-28] MEDS ORDERED: MIDAZOLAM HCL 5 MG/5 ML VIAL IV PUSH ONE (17:23)
[2016-12-28] MEDS ORDERED: fentaNYL CITRATE 250 MCG/5 ML AMP IV PUSH ONE (17:23)
[2016-12-28] MEDS: HYDROmorphone HCL PF 1 MG/ML VIAL IV PUSH PRN (18:08)
[2016-12-28] MEDS: GABAPENTIN 300 MG CAP PO SCH (20:00)
[2016-12-28] MEDS ORDERED: LORazepam 2 MG/ML VIAL ONE (20:29)
[2016-12-28] MEDS: LORazepam 2 MG/ML VIAL IV PUSH PRN (20:32)
[2016-12-28] MEDS: OLANZapine 2.5 MG TAB PO SCH (21:00)
[2016-12-29] VITALS: BP 157/77; PULSE 119; RESP 18; TEMP 97.7; O2SAT 93
[2016-12-29 04:00] VITALS: BP 153/83; PULSE 128; RESP 18; TEMP 97.6; O2SAT 96
[2016-12-29] MEDS: METOPROLOL TARTRATE 25 MG TAB PO SCH ×2 (04:52→12:40)
[2016-12-29] MEDS: LORazepam 2 MG/ML VIAL IV PUSH PRN (04:52)
[2016-12-29 08:07] VITALS: BP 168/93; PULSE 114; RESP 20; TEMP 97.1
[2016-12-29] MEDS: POTASSIUM CHLORIDE 20 MEQ CONTROLLED RELEASE TAB PO SCH (08:52)
[2016-12-29] MEDS: DOCUSATE SODIUM 100 MG CAP PO SCH (08:52)
[2016-12-29] MEDS: POLYETHYLENE GLYCOL 17 GM PKG PO SCH (08:53)
[2016-12-29] MEDS: NICOTINE 21 MG/24 HR PATCH T-DERMAL SCH (08:53)
[2016-12-29] MEDS: OLANZapine 2.5 MG TAB PO SCH (08:53)
[2016-12-29] MEDS: amLODIPine BESYLATE 5 MG TAB PO SCH (08:53)
[2016-12-29] MEDS: MORPHINE SULFATE 15 MG CONTROLLED RELEASE TAB PO SCH (08:53)
[2016-12-29] MEDS: REMOVE OLD PATCH T-DERMAL SCH (08:53)
[2016-12-29] MEDS: MULTIVITAMINS/MINERALS THERAPEUTIC TAB PO SCH (08:53)
[2016-12-29] MEDS: SODIUM CHLORIDE 0.9% FLUSH 10 ML FLUSH IV FLUSH SCH (09:00)
[2016-12-29] MEDS: SODIUM CHLOR 0.9% 1000 ML IV SCH (09:07)
[2016-12-29] MEDS: LEVOFLOXACIN 500 MG TAB PO SCH (11:00)
--- NOTE | 2016-12-29 11:20 | PD.ONC.PN ---
Subjective Subjective Remarks Afebrile Bilateral wrist restraints and confused A&O to self only. Denies pain or SOB. Objective Data Date Time Temp Pulse Resp B/P Pulse Ox O2 Delivery O2 Flow Rate FiO2 12/29/16 08:07 97.1 114 20 168/93 12/29/16 04:00 97.6 128 18 153/83 96 12/29/16 00:00 97.7 119 18 157/77 93 12/28/16 20:00 97.6 118 18 153/72 93 12/28/16 18:38 16 12/28/16 17:45 98.6 117 20 142/77 93 12/28/16 17:34 99 18 140/73 94 12/28/16 17:19 97.2 103 20 164/74 94 12/28/16 15:15 113 16 125/59 93 12/28/16 12:55 101 110/57 12/28/16 12:46 97.1 96 20 123/52 98 Result Diagram: 12/28/16 0934 12/27/16 1411 Administered Medications Medications (Trade) Dose Ordered Sig/Hoang Route PRN Reason Start Time Stop Time Status Last Admin Dose Admin Multivitamins/ Minerals Therapeutic (Theragran M Tab) 1 tab DAILY PO 12/18/16 09:00 12/28/16 09:00 Sodium Chloride (NS Flush) 2 ml BID IV FLUSH 12/17/16 21:00 12/29/16 09:00 Docusate Sodium (Colace) 100 mg Q12HR PO 12/17/16 12:30 12/28/16 09:00 Magnesium Hydroxide (Milk Of Magnesia Liq) 30 ml Q12H PRN PO CONSTIPATION 12/17/16 12:30 12/28/16 08:59 Temazepam (Restoril) 15 mg HS PRN PO INSOMNIA 12/17/16 12:30 12/26/16 21:10 Heparin Sodium (Porcine) (Heparin Inj) 5,000 units Q12H SQ 12/17/16 13:00 Hold 12/22/16 13:33 Lorazepam (Ativan) 1 mg Q4H PRN PO CIWA 8 - 10 12/17/16 16:45 12/20/16 08:33 Lorazepam (Ativan Inj) 1 mg Q4H PRN IV PUSH CIWA 8 - 10 12/17/16 16:45 12/29/16 04:52 Lorazepam (Ativan Inj) 2 mg Q1H PRN IV PUSH CIWA 15-20 12/17/16 16:45 12/26/16 01:15 Clonidine (Catapres) 0.1 mg Q6H PRN PO SBP>160, DBP>90 12/18/16 07:45 12/18/16 07:58 Amlodipine Besylate (Norvasc) 5 mg DAILY PO 12/18/16 09:00 12/28/16 09:00 Cyclobenzaprine HCl (Flexeril) 5 mg Q8H PRN PO MUSCLE SPASM 12/18/16 09:00 12/27/16 20:54 Nicotine (Habitrol 21 Mg Patch.24 Hr) 1 patch DAILY T-DERMAL 12/18/16 14:30 12/29/16 08:53 Miscellaneous Information 1 DAILY T-DERMAL 12/19/16 09:00 12/29/16 08:53 Fentanyl (Duragesic 50 Mcg Patch.72 Hr) 1 patch Q72H TOPICAL 12/21/16 14:00 12/27/16 14:40 Miscellaneous Information 1 Q72H T-DERMAL 12/21/16 14:00 12/27/16 14:45 Hydromorphone HCl (Dilaudid Pf Inj) 0.5 mg Q3H PRN IV PUSH PAIN SCALE 4 TO 10 12/22/16 14:15 12/28/16 18:08 Potassium Chloride (KCl) 20 meq DAILY PO 12/23/16 09:00 12/28/16 09:00 Metoprolol Tartrate (Lopressor) 25 mg Q8HR PO 12/23/16 14:00 12/29/16 04:52 Morphine Sulfate (Oramorph Sr) 45 mg Q12HR PO 12/23/16 09:00 12/28/16 09:00 Polyethylene Glycol (Miralax) 17 gm DAILY PO 12/23/16 09:00 12/28/16 09:00 Oxycodone HCl (Roxicodone) 10 mg Q6H PRN PO PAIN SCALE 6 TO 10 12/23/16 08:45 12/28/16 04:49 Gabapentin (Neurontin) 300 mg DAILY@20 PO 12/23/16 20:00 12/27/16 20:54 Haloperidol Lactate (Haldol Inj) 2 mg Q15M PRN IM SEE LABEL COMMENTS 12/23/16 23:45 12/28/16 20:35 Levofloxacin (Levaquin) 500 mg DAILY@11 PO 12/25/16 11:00 12/28/16 11:06 Olanzapine (ZyPREXA INJ) 5 mg Q12H PRN IM agitation and hostility 12/28/16 15:30 12/29/16 08:56 Objective Remarks GENERAL: Elderly female in bilateral soft wrist restraints. SKIN: Warm and dry. HEAD: Normocephalic. EYES: No injection or drainage. NECK: Supple, trachea midline. CARDIOVASCULAR: +S1/S2. Tachycardic. RESPIRATORY: Diminished anteriorly. GASTROINTESTINAL: Abdomen soft, non-tender, nondistended. EXTREMITIES: No cyanosis, or edema. NEUROLOGICAL: Normal speech. Moving all extremities. A&Ox1. Assessment/Plan Problem List: (1) Metastatic disease Status: Acute Plan: 12/29: Bladder biopsy showed normal urothelial mucosa without histopathologic abnormality. Await results of pelvic mass biopsy. 12/28: Pt to have biopsy of pelvic mass today by IR. Pathology pending from cystoscopy. Discussed with pt's RN, and also ALANNA Merino. Await path results. 12/27: s/p cystoscopy this morning. biopsy obtained and pathology is pending. 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 --patient was having severe pain so she started radiation on 12/25 to ribs and spine. 10 treatments are planned to ribs and 5 treatments are planned for spine --underwent cystoscopy on 12/27 and there was no evidence of bladder tumor or erythema present. a posterior wall bladder biopsy was obtained and pathology showed no histopathologic abnormality. -- Pelvic mass biopsy pending (2) Altered mental status Status: Acute Plan: --Seen by psychiatrist yesterday -- Recommend start olanzipine and transfer to [facility]-psych floor. --likely delirium from extended hospital stay and multiple medications --CT brain WNL on 12/24 Attending Statement confuse. Pelvic mass bx report is pending. pt has pachylosis. Transfer to [facility]. willl see her again when she is out of psych unit. Problem Qualifiers (1) Altered mental status: Qualified Code: R41.82 - Altered mental status, unspecified altered mental status type Brit Abreu December 29, 2016 11:20 Wu Reyes MD December 29, 2016 23:24
--- NOTE | 2016-12-29 12:23 | RADRPT ---
EXAM DATE/TIME: 12/28/2016 16:23 [place] COMPARISON: No previous studies available for comparison. INDICATIONS : Left pelvic lesion SEDATION TIME: 15 minutes BIOPSY SITE: Left Pelvic MEDICATION(S): 1.) 0.5 mg midazolam (Versed) IV 2.) 25 mcg fentanyl (Sublimaze) IV DEVICE(S): 1.) 20 gauge Temno core biopsy needle MEDICAL HISTORY : Arthritis. SURGICAL HISTORY : Orthopedic ENCOUNTER: Initial ACUITY: 1 day PAIN SCORE: 6/10 LOCATION: Left pelvis A total of two core specimen(s) were obtained and sent to the laboratory for pathologic evaluation. PROCEDURE: 1. CT guided pelvic biopsy. 2. Conscious sedation with continuous EKG and oximetry monitoring. Prior to the procedure informed consent was obtained. Any appropriate prior imaging studies were rev iewed. Using automated exposure control and adjustment of the mA and/or kV according to patient size, radiat ion dose was kept as low as reasonably achievable to obtain optimal diagnostic quality images. The site was prepped in a sterile fashion. Full sterile technique was used, including cap, mask, eber rile gloves and gown and a large sterile sheet. Hand hygiene and 2% chlorhexidine and/or betadine/al cohol prep was utilized per protocol for cutaneous antisepsis. The skin and subcutaneous tissues wer e infiltrated with local anesthetic solution. With CT guidance the previously identified target was localized. Biopsy was performed using the presc ribed needle as above. Adequate hemostasis was obtained with compression at the puncture site. Follow-up CT scan reveals no hemorrhage. The patient tolerated the procedure well and there were no complications. The patient was returned to the Radiology Outpatient Unit in stable condition. CONCLUSION: Uncomplicated CT guided biopsy of left ovarian mass. Jeff Hardy MD on December 29, 2016 at 12:20 Board Certified Radiologist. This report was verified electronically.
--- NOTE | 2016-12-29 12:24 | HHI.PR ---
Subjective Remarks patient very guarded on paranoid ff commands refusing meds Objective Vitals Vital Signs Date Time Temp Pulse Resp B/P Pulse Ox O2 Delivery O2 Flow Rate FiO2 12/29/16 08:07 97.1 114 20 168/93 12/29/16 04:00 97.6 128 18 153/83 96 12/29/16 00:00 97.7 119 18 157/77 93 12/28/16 20:00 97.6 118 18 153/72 93 12/28/16 18:38 16 12/28/16 17:45 98.6 117 20 142/77 93 12/28/16 17:34 99 18 140/73 94 12/28/16 17:19 97.2 103 20 164/74 94 12/28/16 15:15 113 16 125/59 93 12/28/16 12:55 101 110/57 12/28/16 12:46 97.1 96 20 123/52 98 I/O 12/28/16 12/28/16 12/28/16 12/29/16 12/29/16 12/29/16 07:00 15:00 23:00 07:00 15:00 23:00 Intake Total 240 ml Output Total 600 ml 200 ml Balance -360 ml -200 ml Intake Oral 240 ml Output Urine Total 600 ml 200 ml # Voids 2 5 Result Diagram: 12/28/16 0934 12/27/16 1411 Imaging Last Impressions Pelvis Ultrasound 12/27/16 0000 Signed Impressions: Service Date/Time: Tuesday, December 27, 2016 16:01 - CONCLUSION: 1. Complex left adnexal mass which is nonspecific. This may represent a complex cystic lesion. 2. The uterus and right ovary are unremarkable. Ras Monge MD Head CT 12/24/16 0000 Signed Impressions: Service Date/Time: Saturday, December 24, 2016 14:02 - CONCLUSION: No evidence of intracranial metastatic disease. Les Pena MD Soft Tissue Biopsy 12/19/16 0000 Signed Impressions: Service Date/Time: Monday, December 19, 2016 12:09 - CONCLUSION: Uncomplicated CT guided biopsy. The destructive lesion involving the T11 rib on the right was biopsied. Oscar Khan MD Chest X-Ray 12/19/16 0000 Signed Impressions: Service Date/Time: Monday, December 19, 2016 14:39 - CONCLUSION: No evidence of pneumothorax. Bibasilar atelectasis. Robert Berman MD CT Angiography 12/17/16 0953 Signed Impressions: Service Date/Time: Saturday, December 17, 2016 11:23 - CONCLUSION: 1. Bibasilar patchy densities likely atelectasis. 2. No evidence for pulmonary embolism. 3. Metastatic lesions involving thoracic spine and right 11th ribs. Jeff Hardy MD Abdomen/Pelvis CT 12/17/16 0000 Signed Impressions: Service Date/Time: Saturday, December 17, 2016 11:23 - CONCLUSION: 1. Metastatic lesion to the left posterior acetabulum. 2. Left adnexal mass measures 4.0 x 2.7 cm could be ovarian in etiology. Pelvic sonogram may be warranted. 3. Wall thickening involving the anterior urinary bladder measuring 11 mm in thickness. Jeff Hardy MD Objective Remarks awake and alert, oriented to person and place and year, ff commands,very guarded affect anicteric no nuchal rigidity lungs- no rales regular rhythm, abdomen-soft nontender extremities no edema, good peripheral pulses moves all extremities equally Procedures 12/27 - cystoscopy A/P Assessment and Plan 71 years old female admitted for complains of back pain work up shows Metastatic disease - patho from T11 mass shows Transitional cell carcinoma likely from bladder malignancy however cystoscopy with biopsy of bladder wall shows no significant pathology Metastatic lesion to left posterior acetabulum, Right rib 11 lytic lesion and thoracic spine Intractable pain Left sided rib pain x 3 weeks now - with erythema area- appears scab ? Neuralgia - Left Adnexal Mass S/p CT guided biopsy 12/28 12/19- soft tissue biopsy done of T11 mass c/w transitional cell carcinoma. 12/27 S/P cystoscopy and biopsy of bladder wall- result no significant pathology 12/28- CT guided biopsy of left adnexal mass- patho still pending - Medical Oncology and Radiation Oncology treatment ongoing. started radiation treatment 12/25 to ribs and spin - 10 treatment planned to ribs and 5 treatments for spine - Urology ff- - Dr. Patterson consulted Patient has multiple bony lytic lesions concerning for metastatic disease, soft tissue mass about the ribs. She also has an adnexal mass. - Pain difficult to control. She cannot ambulate. Continue long-acting morphine to 45 mg every q12. fentanyl patch 25 g every 3 days. po Roxicodone 10 mg q 6 pr adjust pain meds - Patient's pain has been very difficult to control. She cannot ambulate due to the pain. -Neurontin 300 mg hs PT ff Acute psychosis- recurred- Head CT negative -seen by psychiatry - d/w Dr. Travis- transfer to med psychiatry unit- she will need a more closer and structured environment to adjust her meds and will be more consistent and supervised in taking meds - started on Zyprexa and monitor bed available - transfer to med psych unit today- 12/29 if persists consider check MRI brain Hypertension, Tachycardia- pain and psychoses - contributing factors Plan: On Norvasc, clonidine as needed. Increase Lopressor 25 mg po q 8 CTA done earlier negative for PE manage pain- contributing factor- On Morphine bid and prn Oxycodone- increase gradually with close monitoring of [facility] psychiatry ff closely along with us Hypokalemia- resolved on KCL po daily. Ff BMP Hyponatremia- improved- ICD Code: E87.1 Status: Acute Tobacco abuse- counselled ICD Code: Z72.0 Alcohol abuse ICD Code: F10.10 Status: Acute Pyuria UTI- on Levaquin 500 mg po daily. - final c and s TEDs Transfer to med/psych floor under Dr. Travis's service and [facility] will continue to ff her there start DVT prophylaxis with Lovenox if no plan for any further diagnostic study/ biopsy- awaiting Gyne=Onco input. Shelbie Whelan MD December 29, 2016 12:24 Hypokalemia- resolved on KCL po daily. Ff BMP Hyponatremia- improved- ICD Code: E87.1 Status: Acute Tobacco abuse- counselled ICD Code: Z72.0 Alcohol abuse ICD Code: F10.10 Status: Acute Pyuria UTI- on Levaquin 500 mg po daily. - final c and s Transfer to med/psych floor under Dr. Travis's service and [facility] will continue to ff her there Problem Qualifiers (1) Hypertension: Qualified Code: I15.8 - Other secondary hypertension Shelbie Whelan MD December 29, 2016 12:24
[2016-12-29 12:32] VITALS: BP 181/77; PULSE 116; RESP 20; TEMP 97.2; O2SAT 96
[2016-12-29] MEDS: HYDROmorphone HCL PF 1 MG/ML VIAL IV PUSH PRN (12:43)
[2016-12-29 14:32] VITALS: BP 170/82; PULSE 117
--- NOTE | 2016-12-29 17:15 | MB ---
cc: JO HOLGUIN MD DATE OF CONSULTATION 12/29/[address] Shelbie Whelan REASON FOR CONSULTATION Pelvic mass. This patient is seen, evaluated by me. Her findings are reviewed and she is counseled by me in conjunction with our nurse practitioner (Alpa Taveras) I agree with her findings, assessment and plan of care. The history is obtained from available records, review and from speaking with a close friend of hers who is in the room who says that she has known Maddie Odell for approximately 40 years. She is a 71 year old female in her usual state of health up until approximately three weeks ago. She lived independently, lived by herself, drove herself wherever she wanted to go, stayed very active, had clear mental status and was essentially asymptomatic. Approximately three weeks prior to admission, she started complaining of back pain and left flank pain, fatigue, was admitted to the hospital where findings and evaluation thus far have been such that her mental status has deteriorated. She is in and out of being lucid. At times, she is combative and there has been concern regarding harm to herself and tried to treat her symptomatically with medication and soft restraints. Evaluation has included what appears to be lytic lesion in the vertebral column as well as the 11th ribs. Imaging shows a 4 cm cystic complex mass in the left pelvis. There is also thickening to the urinary bladder. Biopsy of the rib lesion shows carcinoma with histology and immunohistochemistry most likely favors a transitional cell carcinoma. Because of this finding and the thickened bladder, she underwent cystoscopy where bladder wall appeared somewhat abnormal. Biopsies were obtained, however, the biopsies did not show any malignancy. Tumor markers, CEA, CA-125 are normal. Pelvic mass is probably of ovarian origin and she has undergone biopsy of this mass which was our recommendation. The pathology results from this biopsy are pending. In our encounter today, she seems to understand the pertinent aspects of our discussion but is very somnolent, in-and-out of being awake during our conversation and cannot provide much in the way of history or additional information. PAST MEDICAL HISTORY, PAST SURGICAL HISTORY, MEDICATIONS, ALLERGIES, FAMILY HISTORY AND REVIEW OF SYSTEMS All as documented in the chart. They are reviewed. I did not elicit anything further other than, as noted above, speaking with her close friend who states that the current status of Maddie McClyment is vastly different than the baseline independent, clear minded individual that she has known for most of her life. Additional objective findings - imaging of the head shows no overt evidence of metastatic disease. Chest x-ray shows atelectasis, some osteopenia, otherwise, the lung black are clear. CT angiogram was negative for pulmonary emboli. Metastatic lesion involving the thoracic spine and eleventh rib noted. CT scan of the abdomen and pelvis as noted above thickening to the bladder wall 11 mm. No overt adenopathy, ascites or other nodularity. Metastatic lesion in the left posterior acetabulum. The left adnexal mass 4 cm noted. Pelvic ultrasound shows a 3.4 cm complex cystic mass in the region of the left adnexa. The other ovary and uterus appear normal. Additional objective as noted. Tumor marker CA-125 is 14.7. CEA is 2.2. Troponin less than 0.02. Most recent labs - Electrolytes essentially normal. BUN and creatinine six and 0.47. Alkaline phosphatase elevated at 192, albumin low at 2.5, H&H 12.1 and 36.1, white count 7.6, platelet 432. Coags - INR 1.2. Microbiology urine culture shows mixed natividad. PHYSICAL EXAMINATION VITAL SIGNS: She is afebrile, pulse ranging 114-128, respirations 18-20, blood pressure 153-181/77-93, O2 saturations greater than or equal to 96%, weight 58.3 kg. GENERAL: As noted above on exam, she is somnolent but awake not clearly oriented, is able to correct my pronunciation of her last name, reports that she is reasonably comfortable, does not eat anything else at the present time, seems to understand the reason for [facility] oncology consult. She drifts off to sleep frequently during attempted conversation. The mass in the right and left lower quadrant cannot be palpated. She does seem uncomfortable more from a hip pain. Her abdomen is nonacute. There is no report of [facility] bleeding or post postmenopausal bleeding. Time is spent in discussion with her and more time was spent with her friend outside the room in discussion. She states that her healthcare surrogate is her civil rights attorney as well as the sister of her good friend and reports that these documents will be or possibly have been delivered to the hospital to be placed on her chart. Her friend expresses concern about her performance status and the ability to consider any treatment and suggests that supportive care Hospice may be reasonable and she believes that to be in keeping with the wishes of Maddie Cass. I explained that we are just meeting her and certainly the primary care physician and oncologist overseeing her care, working with her family and health care surrogates can help formulate the best plan of care in keeping with her wishes. At the present time, I explained that focused [facility] oncology objectives are to determine if it is possible that this small mass in the left pelvis could potentially be the origin of her metastatic tumor. I believe this to be unlikely, but nevertheless possible. Biopsy has been performed and results are pending. Should that suggest a primary gynecologic malignancy, we will discuss options and help formulate a plan of care be it cancer treatment or be it supportive care. Conversely, should the biopsy be benign based on the other findings it seems improbable that her current status is related to a primary gynecologic malignancy and we would defer to the judgment of her other caregivers. Discussion ensued, questions were answered. ASSESSMENT 1. 4 cm complex left ovarian mass status post biopsy pathology pending. 2. Mental status changes, physical decline, metastatic disease. Biopsy most suggestive of transitional cell carcinoma. 3. Despite biopsy results and abnormal-appearing bladder, biopsy did not confirm tumor arising from the bladder. 4. Discussion. PLAN 1. Await results of biopsy from left ovary. 2. Continue efforts at supportive care, comfort measures. Thank you for the consultation. MD JAVIER Richter/ /3:02 PM /4:51 PM
== END 2016-12-29 12:30 | DRG 982 ==
LOC: PHEFT 09:26 → OBSVTOIN 12:29 → PHEDA 12:29 → UNDOADMOB 12:33 → PHEDA 12:33 → PH3B 14:31 → INTOOBSV 12-18 11:07 → OBSVTOIN 12-18 11:07 → PH3B 12-21 22:14 → HOCA 12-21 22:14 → UNDODISIN 12-29 12:30 → H4EA 12-29 15:37 → HOCA 12-29 15:37
PROVIDERS: ADMIT Internal Medicine; ATTEND Internal Medicine
PROC: 0JB73ZX Excision of Back Subcutaneous Tissue and Fascia, Percutaneous Approach, Diagnostic (ICD-10-PCS; 2016-12-19)
PROC: 0TBB8ZX Excision of Bladder, Via Natural or Artificial Opening Endoscopic, Diagnostic (ICD-10-PCS; 2016-12-27)
PROC: 0UB13ZX Excision of Left Ovary, Percutaneous Approach, Diagnostic (ICD-10-PCS; principal; 2016-12-29)
DX: C79.51 Secondary malignant neoplasm of bone (principal); E87.1 Hypo-osmolality and hyponatremia; N39.0 Urinary tract infection, site not specified; M06.9 Rheumatoid arthritis, unspecified; F23 Brief psychotic disorder; J98.11 Atelectasis; M54.2 Cervicalgia; E87.6 Hypokalemia; M54.9 Dorsalgia, unspecified; F10.10 Alcohol abuse, uncomplicated; I10 Essential (primary) hypertension; F17.210 Nicotine dependence, cigarettes, uncomplicated; M41.9 Scoliosis, unspecified; R35.1 Nocturia; R33.9 Retention of urine, unspecified; Z85.828 Personal history of other malignant neoplasm of skin; Z78.1 Physical restraint status; M62.830 Muscle spasm of back; R00.0 Tachycardia, unspecified; M79.2 Neuralgia and neuritis, unspecified
CPT/HCPCS: 20206; 49180; 70470; 71010; 71275; 72128; 72131; 74177; 74420; 76856; 77012; 77263; 77290; 77295; 77300; 77334; 77387; 77412; 80048; 80053; 81001; 82378; 82550; 82784; 83735; 83883; 84165; 84484; 85025; 85027; 85610; 85730; 86304; 86334; 86335; 87086; 88112; 88305; 88307; 88341; 93005; 96361; 96374; 99152; 99222; J1170; J1630; J1644; J2060; J2250; J2270; J2370; J2405; J2710; J3010; J3480; J7030; Q9967

== ENCOUNTER 2016-12-29 16:00 | Inpatient (IN) | payer OTHER, MEDICARE ==
[~2016-12-29 16:00] MED LIST changes: +AMLO5 PO; -ARTH650T6 PO; +FENT50T TOPICAL; +METO25TA3 PO; +NAPR220T95 PO; +NEUR300C PO; +OXYC-395 PO; +PERC7.5T13 PO; +POLY17S PO; +POTA20TA5 PO
[2016-12-29 16:13] VITALS: BP 166/92; PULSE 123; RESP 26; O2SAT 95
[2016-12-29] MEDS ORDERED: ACETAMINOPHEN 325 MG TAB PO PRN (16:15)
[2016-12-29] MEDS: amLODIPine BESYLATE 5 MG TAB PO SCH (16:15)
[2016-12-29] MEDS ORDERED: ALUMINUM/MAGNESIUM/SIMETH 30 ML CUP PO PRN (16:15)
[2016-12-29] MEDS ORDERED: LORazepam 0.5 MG TAB PO PRN (16:15)
[2016-12-29] MEDS ORDERED: LORazepam 2 MG/ML VIAL IM PRN ×2 (16:15)
[2016-12-29] MEDS ORDERED: MAGNESIUM HYDROXIDE SUSP 30 ML CUP PO PRN (16:15)
[2016-12-29] MEDS ORDERED: LORazepam 1 MG TAB PO PRN (16:15)
[2016-12-29] MEDS ORDERED: METOPROLOL TARTRATE 25 MG TAB PO SCH (16:15)
[2016-12-29] MEDS ORDERED: OLANZapine IM 10 MG VIAL IM ONE (16:52)
[2016-12-29] MEDS ORDERED: NICOTINE 21 MG/24 HR PATCH T-DERMAL SCH (17:00)
[2016-12-29] MEDS ORDERED: fentaNYL 50 MCG/HR PATCH TOPICAL SCH (17:00)
[2016-12-29 17:23] VITALS: BP 160/90; PULSE 130; RESP 16; TEMP 98.2; O2SAT 95
[2016-12-29] MEDS ORDERED: fentaNYL 50 MCG/HR PATCH T-DERMAL SCH (18:00)
[2016-12-29] MEDS: OLANZapine IM 10 MG VIAL IM PRN (18:11)
[2016-12-29] MEDS ORDERED: MORPHINE SULFATE 15 MG CONTROLLED RELEASE TAB PO SCH (21:00)
[2016-12-29] MEDS: GABAPENTIN 300 MG CAP PO SCH (21:11)
[2016-12-29] MEDS: OLANZapine 2.5 MG TAB PO SCH (21:11)
[2016-12-29] MEDS: METOPROLOL TARTRATE 25 MG TAB PO SCH (21:12)
[2016-12-29] MEDS: MORPHINE SULFATE 15 MG CONTROLLED RELEASE TAB PO SCH (21:29)
[2016-12-30] VITALS: BP 130/68; PULSE 80; RESP 18; TEMP 97.6; O2SAT 96
[2016-12-30] MEDS: METOPROLOL TARTRATE 25 MG TAB PO SCH ×3 (05:28→21:34)
[2016-12-30 06:00] VITALS: BP 186/74; PULSE 120; RESP 20; TEMP 97.5; O2SAT 95
--- NOTE | 2016-12-30 08:11 | HHI.HP ---
Provisional Diagnosis Admission Date December 29, 2016 at 16:00 [place] I. Unspecified psychosis Certification of Person's Competence To Provide Express and Informed Consent I have personally examined Maddie Roche , a person being served at [facility] on, December 30, 2016 08:05. Express and informed consent means consent voluntarily given in writing, by a competent person, after sufficient explanation and disclosure of the subject matter involved to enable the person to make a knowing and willful decision without any element of force, fraud, deceit, duress, or other form of constraint or coercion. This person is 18 years of age or older, is not now known to be incompetent to consent to treatment with a guardian advocate, and does not have a health care surrogate or proxy currently making medical treatment decisions. I have found this person to be one of the following: [] Competent to provide express and informed consent, as defined above, for voluntary admission to this facility and is competent to provide express and informed consent for treatment. He/she has the consistent capacity to make well reasoned, willful, and knowing decisions concerning his or her medical or mental health treatment. The person fully and consistently understands the purpose of the admission for examination/placement and is fully capable of personally exercising all rights [place] [X] Incompetent to provide express and informed consent to voluntary admission, and this is incompetent to provide express and informed consent to treatment. The person must be transferred to involuntary status and a petition for a guardian advocate filed with the Circuit Court. [] Refusing to provide express and informed consent to voluntary admission but is competent to provide express and informed consent for treatment. The person must be discharged or transferred to involuntary status. Form shall be completed within 24 hours of a person's arrival at the receiving facility and filed in the clinical record of each person: 1. Admitted on a voluntary basis 2. Permitted to provide express and informed consent to his/her own treatment 3. Allowed to transfer from involuntary to voluntary status 4. Prior to permitting a person to consent to his or her own treatment after having been previously found incompetent to consent to treatment. History of Present Illness Capacity: Lacks Capacity HPI 12/28/2016 The patient is a 71-year-old woman, domiciled alone in [place], single, no kids, without any previous psychiatric history, no previous psychiatric hospitalizations, no previous suicidal attempts, hospitalized due to uncontrollable untreatable back pain, diagnosed with metastatic bone lesions , suspected primary bladder cancer. Patient was consulted to psychiatry due to episodic agitation, psychosis. On psychiatric evaluation today patient is found calm, cooperative and pleasant. Patient reports good mood, she says that she is feeling today better than previous days. She is in a good spirit, denies depressive symptoms, denies anhedonia, denies hopelessness, denies helplessness, denies suicidal or homicidal ideation. Patient says that she has been agitated because primary medical team is not clear about the nature of her pain and she doesn't know where the cancer comes from. However, patient doesn' t seem to be very concerned about it. Patient says that she hasn't been sleeping at all "because every night that her people coming inside this room to steal my belongings and to try to kill". She says that and man friend in [place] which name is Jarod has been following her here in the hospital and she has seen him several times around. Patient says that also at night nurses talk about her and she can listen throughout the funk with a talking about. Patient is oriented 3, seems to be logical, coherent and relevant. Affect full cognitive assessment could not be performed, because patient became irritable and refuses. She denies the use of illicit drugs, but reports almost daily use of 2-3 cups of wine. 12/30/2016 today a psychiatric evaluation patient is found laying in her bed, she seems to be lethargic, distant, poorly cooperative. She is partially oriented in time, but oriented in person and place. Reports depressed mood, she says that she is in a lot of pain, and is been very difficult to deal with her underlying medical conditions. He reports low appetite, low level of energy , decreased level of concentration, guiltiness, frequent crying spells, and she also reports suicidal thoughts, but no suicidal ideation or plans. She denies visual and auditory hallucinations, however she seems to be internally stimulated, she has been described by the nurses as combative with people that are not present in the room, loud at night, talking alone, and paranoid towards staff. Patient does endorse concern about "being surrounded by people that cannot be trusted and could poisoned you food and medications". Review of Systems Constitutional: DENIES: Diaphoretic episodes, Fatigue, Fever, Weight gain, Weight loss, Chills, Dizziness, Change in appetite, Night Sweats Endocrine: DENIES: Abnorml menstrual pattern, Heat/cold intolerance, Polydipsia , Polyuria, Polyphagia Eyes: DENIES: Blurred vision, Diplopia, Eye inflammation, Eye pain, Vision loss , Photosensitivity, Double Vision Ears, nose, mouth, throat: DENIES: Tinnitus, Hearing loss, Vertigo, Nasal discharge, Oral lesions, Throat pain, Hoarseness, Ear Pain, Running Nose, Epistaxis, Sinus Pain, Toothache, Odynophagia Respiratory: DENIES: Apneas, Cough, Snoring, Wheezing, Hemoptysis, Sputum production, Shortness of breath Cardiovascular: COMPLAINS OF: Chest pain, DENIES: Palpitations, Syncope, Dyspnea on Exertion, PND, Lower Extremity Edema, Orthopnea, Claudication Gastrointestinal: DENIES: Abdominal pain, Black stools, Bloody stools, Constipation, Diarrhea, Nausea, Vomiting, Difficulty Swallowing, Anorexia Musculoskeletal: COMPLAINS OF: Back pain, Neck pain, DENIES: Joint pain, Muscle aches, Stiffness, Joint Swelling Integumentary: DENIES: Abnormal pigmentation, Pruritus, Rash, Nail changes, Breast masses, Breast skin changes, Nipple discharge Hematologic/lymphatic: DENIES: Bruising, Lymphadenopathy Immunologic/allergic: DENIES: Eczema, Urticaria Neurologic: DENIES: Abnormal gait, Headache, Localized weakness, Paresthesias, Seizures, Speech Problems, Tremor, Poor Balance Psychiatric: COMPLAINS OF: Confusion, Depression, Hallucinations Past Family Social History Coded Allergies: No Known Allergies (Verified , 12/17/16) Active Scripts Potassium Chloride Microencaps 20 Meq Tab20 Meq PO DAILY 30 Days Prov:Shelbie Whelan MD 12/28/16 Polyethylene Glycol 3350 Powder 17 Gm Pow17 Gm PO DAILY 30 Days Prov:Shelbie Whelan MD 12/28/16 Oxycodone 10 Mg Tab10 Mg PO Q6H PRN (PAIN SCALE 6 TO 10) 10 Days Prov:Shelbie Whelan MD 12/28/16 Metoprolol Tartrate 25 Mg Tab25 Mg PO Q8HR 30 Days Prov:Shelbie Whelan MD 12/28/16 Gabapentin (Neurontin)300 Mg [id number] Mg PO DAILY@20 #15 CAP Prov:Shelbie Whelan MD 12/28/16 Fentanyl Patch 72 HR (Duragesic Patch 72 HR)50 Mcg/Hr Patch1 Patch TOPICAL Q72H 30 Days Prov:Shelbie Whelan MD 12/28/16 Amlodipine (Norvasc)5 Mg Tab5 Mg PO DAILY 30 Days Prov:Shelbie Whelan MD 12/28/16 Reported Medications Oxycodone-Acetaminophen (Percocet)7.5-325 mg Tab1 Tab PO Q6H PRN (PAIN) Ref 0 12/17/16 Multiple Vitamins W/ Minerals (Multivitamin Women)1 Tab Tab1 Tab PO DAILY Ref 0 12/15/16 Fish Oil-Cholecalciferol (Rand-3 Fish Oil/Vitamin)1,000-1,000 Mg Cap1 Cap PO DAILY Ref 0 12/15/16 Discontinued Reported Medications Naproxen Sodium (Aleve)220 Mg [id number] Mg PO BID PRN (Pain Management) Ref 0 12/17/16 Ibuprofen (Advil)200 Mg [id number] Mg PO TID Ref 0 12/15/16 Discontinued Scripts Hydrocodone-Acetaminophen (Lortab)5-325 Mg Tab1-2 Tab PO Q6H PRN (PAIN) #20 TAB Ref 0 Prov:Marlene Cortes MD 12/15/16 Current Medications Medications (Trade) Dose Ordered Sig/Hoang Route Start Time Stop Time Status Last Admin (Norvasc) 5 mg DAILY PO 12/29/16 16:15 (Neurontin) 300 mg DAILY@20 PO 12/29/16 20:00 12/29/16 21:11 (Roxicodone) 10 mg Q6H PRN PO 12/29/16 16:15 12/29/16 18:12 (Ativan) 1 mg Q6H PRN PO 12/29/16 16:15 (Ativan Inj) 1 mg Q6H PRN IM 12/29/16 16:15 (Ativan) 0.5 mg Q12H PRN PO 12/29/16 16:15 (Ativan Inj) 0.5 mg Q12H PRN IM 12/29/16 16:15 12/30/16 05:45 (Tylenol) 650 mg Q4H PRN PO 12/29/16 16:15 (Milk Of Magnesia Liq) 30 ml DAILY PRN PO 12/29/16 16:15 (Mag-Al Plus Susp Liq) 30 ml Q6H PRN PO 12/29/16 16:15 (Oramorph Sr) 45 mg Q12HR PO 12/29/16 21:00 12/29/16 21:29 (Theragran M Tab) 1 tab DAILY PO 12/30/16 09:00 (Miralax) 17 gm DAILY PO 12/30/16 09:00 (Duragesic 50 Mcg Patch.72 Hr) 1 patch Q3D T-DERMAL 12/29/16 18:00 12/29/16 18:00 Miscellaneous Information 1 Q3D T-DERMAL 01/01/17 18:00 (ZyPREXA) 2.5 mg Q12H PO 12/29/16 21:00 12/29/16 21:11 (ZyPREXA INJ) 5 mg Q12H PRN IM 12/29/16 18:15 12/29/16 18:11 (Lopressor) 50 mg Q8HR PO 12/29/16 22:00 12/29/16 21:12 Family History Patient denies psychiatric family history Social History Patient was born and raised in [place], she lives alone in [place], she is single, no kids, her highest level of education is high school Patient's Strengths (min. 2) Verbal communication Physical Exam Vital Signs Vital Signs Date Time Temp Pulse Resp B/P Pulse Ox O2 Delivery O2 Flow Rate FiO2 12/30/16 06:00 97.5 120 20 186/74 95 12/29/16 21:00 Nasal Cannula 2.00 Lab Results Labs Last Impressions Pelvis Ultrasound 12/27/16 0000 Signed Impressions: Service Date/Time: Tuesday, December 27, 2016 16:01 - CONCLUSION: 1. Complex left adnexal mass which is nonspecific. This may represent a complex cystic lesion. 2. The uterus and right ovary are unremarkable. Ras Monge MD Head CT 12/24/16 0000 Signed Impressions: Service Date/Time: Saturday, December 24, 2016 14:02 - CONCLUSION: No evidence of intracranial metastatic disease. Les Pena MD Soft Tissue Biopsy 12/19/16 0000 Signed Impressions: Service Date/Time: Monday, December 19, 2016 12:09 - CONCLUSION: Uncomplicated CT guided biopsy. The destructive lesion involving the T11 rib on the right was biopsied. Oscar Khan MD Chest X-Ray 12/19/16 0000 Signed Impressions: Service Date/Time: Monday, December 19, 2016 14:39 - CONCLUSION: No evidence of pneumothorax. Bibasilar atelectasis. Robert Berman MD CT Angiography 12/17/16 0953 Signed Impressions: Service Date/Time: Saturday, December 17, 2016 11:23 - CONCLUSION: 1. Bibasilar patchy densities likely atelectasis. 2. No evidence for pulmonary embolism. 3. Metastatic lesions involving thoracic spine and right 11th ribs. Jeff Hardy MD Abdomen/Pelvis CT 12/17/16 0000 Signed Impressions: Service Date/Time: Saturday, December 17, 2016 11:23 - CONCLUSION: 1. Metastatic lesion to the left posterior acetabulum. 2. Left adnexal mass measures 4.0 x 2.7 cm could be ovarian in etiology. Pelvic sonogram may be warranted. 3. Wall thickening involving the anterior urinary bladder measuring 11 mm in thickness. Jeff Hardy MD Mental Status Examination Appearance Elderly woman, [facility], good hygiene, age appearing, superficially cooperative, calm Speech: Slow Orientation: x3 Memory: Unremarkable Thought Process: Goal Directed, Loose Association Thought Content: Paranoid Hallucination Type: Auditory, Visual Attention and Concentration: Abnormal Suicidal Ideation: Yes (no plan) Previous Suicide Attempts: No Homicidal Ideation: No Previous Homicide Attempts: No Judgment: Poor Affect: Irritable Mood: Appropriate Motor Activity: Normal gait Assessment & Plan Problem List: (1) Unspecified psychosis Assessment & Plan: Patient continues to show significant symptomatology of psychosis, visual and auditory hallucinations, also continues paranoia. Patient also displays symptomatology of moderate to severe depression, with suicidal thoughts, no specific plans. We will continue process of psychiatric hospitalization for stabilization and safety. Will continue olanzapine 2.5 mg twice a day for psychosis, will start Remeron 15 mg for depression. medicine worker intervention for psychosocial assessment, collateral information, to coordinate group and individual therapy. We will consult hospitalist to continue medical care. Will suggest brain MRI to rule out completely metastasis to the brain. Patient should remain in fall precautions. ICD Code: F29 Assessment & Plan Estimated LOS: days Karthikeyan Traivs. MD December 30, 2016 08:11
[2016-12-30] MEDS ORDERED: NON-FORMULARY DRUG (Fish Oil-Cholecalciferol (Omega-3 Fish Oil/Vitamin) 1 CAP) PO SCH (09:00)
[2016-12-30] MEDS: MORPHINE SULFATE 15 MG CONTROLLED RELEASE TAB PO SCH ×2 (09:00→21:00)
[2016-12-30] MEDS: MULTIVITAMINS/MINERALS THERAPEUTIC TAB PO SCH (09:00)
[2016-12-30] MEDS: OLANZapine 2.5 MG TAB PO SCH ×2 (09:00→21:00)
[2016-12-30] MEDS: POLYETHYLENE GLYCOL 17 GM PKG PO SCH (09:00)
[2016-12-30] MEDS: amLODIPine BESYLATE 5 MG TAB PO SCH (09:00)
[2016-12-30 09:58] VITALS: BP 154/74; PULSE 122; RESP 24; TEMP 98.1; O2SAT 96
--- NOTE | 2016-12-30 13:01 | PD.CONS ---
HPI Service [facility] District[facility] Consult Requested By Primary Care Physician Darius Lerma MD Diagnoses: Past Family Social History Allergies: Coded Allergies: No Known Allergies (Verified , 12/17/16) Active Ordered Medications Physical Exam Vital Signs Elmira Campbell December 30, 2016 13:01 medical management. Review of Systems Except as stated in HPI: all other systems reviewed are Neg Past Family Social History Allergies: Coded Allergies: No Known Allergies (Verified , 12/17/16) Past Medical History Rheumatoid arthritis History of alcohol abuse Scoliosis Past Surgical History s/p ORIF right hip Reported Medications Potassium Chloride Microencaps 20 Meq Tab20 Meq PO DAILY 30 Days Prov:Shelbie Whelan MD 12/28/16 Polyethylene Glycol 3350 Powder 17 Gm Pow17 Gm PO DAILY 30 Days Prov:Shelbie Whelan MD 12/28/16 Oxycodone 10 Mg Tab10 Mg PO Q6H PRN (PAIN SCALE 6 TO 10) 10 Days Prov:Shelbie Whelan MD 12/28/16 Metoprolol Tartrate 25 Mg Tab25 Mg PO Q8HR 30 Days Prov:Shelbie Whelan MD 12/28/16 Gabapentin (Neurontin)300 Mg [id number] Mg PO DAILY@20 #15 CAP Prov:Shelbie Whelan MD 12/28/16 Fentanyl Patch 72 HR (Duragesic Patch 72 HR)50 Mcg/Hr Patch1 Patch TOPICAL Q72H 30 Days Prov:Shelbie Whelan MD 12/28/16 Amlodipine (Norvasc)5 Mg Tab5 Mg PO DAILY 30 Days Prov:Shelbie Whelan MD 12/28/16 Oxycodone-Acetaminophen (Percocet)7.5-325 mg Tab1 Tab PO Q6H PRN (PAIN) Ref 0 12/17/16 Multiple Vitamins W/ Minerals (Multivitamin Women)1 Tab Tab1 Tab PO DAILY Ref 0 12/15/16 Fish Oil-Cholecalciferol (Pearson-3 Fish Oil/Vitamin)1,000-1,000 Mg Cap1 Cap PO DAILY Ref 0 12/15/16 Active Ordered Medications Current Medications Medications (Trade) Dose Ordered Sig/Hoang Route Start Time Stop Time Status Last Admin (Norvasc) 5 mg DAILY PO 12/29/16 16:15 12/30/16 09:00 (Neurontin) 300 mg DAILY@20 PO 12/29/16 20:00 12/29/16 21:11 (Roxicodone) 10 mg Q6H PRN PO 12/29/16 16:15 12/29/16 18:12 (Ativan) 1 mg Q6H PRN PO 12/29/16 16:15 (Ativan Inj) 1 mg Q6H PRN IM 12/29/16 16:15 (Ativan) 0.5 mg Q12H PRN PO 12/29/16 16:15 (Ativan Inj) 0.5 mg Q12H PRN IM 12/29/16 16:15 12/30/16 05:45 (Tylenol) 650 mg Q4H PRN PO 12/29/16 16:15 (Milk Of Magnesia Liq) 30 ml DAILY PRN PO 12/29/16 16:15 (Mag-Al Plus Susp Liq) 30 ml Q6H PRN PO 12/29/16 16:15 (Oramorph Sr) 45 mg Q12HR PO 12/29/16 21:00 12/30/16 09:00 (Theragran M Tab) 1 tab DAILY PO 12/30/16 09:00 (Miralax) 17 gm DAILY PO 12/30/16 09:00 12/30/16 09:00 (Duragesic 50 Mcg Patch.72 Hr) 1 patch Q3D T-DERMAL 12/29/16 18:00 12/29/16 18:00 Miscellaneous Information 1 Q3D T-DERMAL 01/01/17 18:00 (ZyPREXA) 2.5 mg Q12H PO 12/29/16 21:00 12/30/16 09:00 (ZyPREXA INJ) 5 mg Q12H PRN IM 12/29/16 18:15 12/29/16 18:11 (Lopressor) 50 mg Q8HR PO 12/29/16 22:00 12/29/16 21:12 Family History Mother with history of diabetes and rheumatic fever. Father was healthy. Social History Patient admits to drinking 4 beers daily and 2 glasses of wine at night. She has been smoking half a pack per day for the past 50 years. She denies illicit drug use. Patient was born and raised in [place]. She lives alone in [place], she is single, no kids. Physical Exam Vital Signs Vital Signs Date Time Temp Pulse Resp B/P Pulse Ox O2 Delivery O2 Flow Rate FiO2 12/30/16 09:58 98.1 122 24 154/74 96 12/30/16 06:00 97.5 120 20 186/74 95 12/30/16 00:00 97.6 80 18 130/68 96 12/29/16 21:00 Nasal Cannula 2.00 12/29/16 17:23 98.2 130 16 160/90 95 12/29/16 16:13 95 Nasal Cannula 2.00 12/29/16 16:13 123 26 166/92 95 Physical Exam GENERAL: This is a well-nourished, well-developed patient, in no apparent distress. SKIN: No rashes, ecchymoses or lesions. Cool and dry. HEAD: Atraumatic. Normocephalic. No temporal or scalp tenderness. EYES: Pupils equal round and reactive. Extraocular motions intact. No scleral icterus. No injection or drainage. ENT: Nose without bleeding, purulent drainage or septal hematoma. Throat without erythema, tonsillar hypertrophy or exudate. Uvula midline. Airway patent. NECK: Trachea midline. No JVD or lymphadenopathy. Supple, nontender, no meningeal signs. CARDIOVASCULAR: Regular rate and rhythm without murmurs, gallops, or rubs. RESPIRATORY: Clear to auscultation. Breath sounds equal bilaterally. No wheezes , rales, or rhonchi. GASTROINTESTINAL: Abdomen soft, non-tender, nondistended. No hepato-splenomegaly , or palpable masses. No guarding. MUSCULOSKELETAL: Extremities without clubbing, cyanosis, or edema. No joint tenderness, effusion, or edema noted. No calf tenderness. Negative Homans sign bilaterally. NEUROLOGICAL: Awake and alert. Cranial nerves II through XII intact. Motor and sensory grossly within normal limits. Five out of 5 muscle strength in all muscle groups. Normal speech. Elmira Campbell December 30, 2016 13:01
[2016-12-30 13:27] VITALS: BP 123/60; PULSE 123; RESP 18; TEMP 97.7; O2SAT 94
--- NOTE | 2016-12-30 18:07 | PD.CONS ---
HPI Service [facility] Hospitalists Consult Requested By Psychiatric services Reason for Consult Medical management Primary Care Physician Darius Lerma MD Diagnoses: History of Present Illness Written by Elmira Campbell PA-C acting as scribe for Dr. Rajput on 12/30/16 at 17:38. 71 yo female with PMHX of rheumatoid arthritis who presented to [facility] on 12/17 with complaints of back pain and was found to have multiple bony lytic lesions concerning for metastatic disease, soft tissue mass about the ribs. She underwent soft tissue biopsy on 12/19 which favors transitional cell carcinoma. She underwent a cystoscopy and biopsy of bladder wall with no significant pathology as well as CT guided biopsy of adnexal mass with current pathology pending. She began radiation treatments on 12/25 to the ribs and spine - 10 treatment planned to ribs and 5 treatments for spine. She had one treatment of radiation only with refusal of subsequent treatments. Dr. Patterson was consulted. She has had difficulty with pain control and has been unable to ambulate as a result. She developed acute psychosis and was seen in consultation by Dr. Travis. CT of the head was negative. Patient has been transferred to med/psych and hospitalist services have been consulted for medical management. Due to patients acute encephalopathy, patient is unable to give adequate medical history. Therefore, medical history is obtained from the healthcare surrogate who is present at the bedside and review of the medical record. Discussed with NATHAN Rodarte at the bedside - Patient has decompensated since yesterday. Able to walk yesterday and unable to get up today. Not tolerating anything by mouth. Not eating. Choking on thin liquids. Spitting out pills. No fever or chills. Patient did not recognize friend of 35 years. Review of Systems Attempted but unable to complete review of systems due to patients encephalopathy Past Family Social History Allergies: Coded Allergies: No Known Allergies (Verified , 12/17/16) Past Medical History Rheumatoid arthritis History of alcohol abuse Scoliosis Past Surgical History Healthcare surrogate states patient had surgery on the left hip however upon review of the medical record patient had previous ORIF right hip Reported Medications Potassium Chloride Microencaps 20 Meq Tab20 Meq PO DAILY 30 Days Prov:Shelbie Whelan MD 12/28/16 Polyethylene Glycol 3350 Powder 17 Gm Pow17 Gm PO DAILY 30 Days Prov:Shelbie Whelan MD 12/28/16 Oxycodone 10 Mg Tab10 Mg PO Q6H PRN (PAIN SCALE 6 TO 10) 10 Days Prov:Shelbie Whelan MD 12/28/16 Metoprolol Tartrate 25 Mg Tab25 Mg PO Q8HR 30 Days Prov:Shelbie Whelan MD 12/28/16 Gabapentin (Neurontin)300 Mg [id number] Mg PO DAILY@20 #15 CAP Prov:Shelbie Whelan MD 12/28/16 Fentanyl Patch 72 HR (Duragesic Patch 72 HR)50 Mcg/Hr Patch1 Patch TOPICAL Q72H 30 Days Prov:Shelbie Whelan MD 12/28/16 Amlodipine (Norvasc)5 Mg Tab5 Mg PO DAILY 30 Days Prov:Shelbie Whelan MD 12/28/16 Oxycodone-Acetaminophen (Percocet)7.5-325 mg Tab1 Tab PO Q6H PRN (PAIN) Ref 0 12/17/16 Multiple Vitamins W/ Minerals (Multivitamin Women)1 Tab Tab1 Tab PO DAILY Ref 0 12/15/16 Fish Oil-Cholecalciferol ([place]-3 Fish Oil/Vitamin)1,000-1,000 Mg Cap1 Cap PO DAILY Ref 0 12/15/16 Active Ordered Medications Current Medications Medications (Trade) Dose Ordered Sig/Hoang Route Start Time Stop Time Status Last Admin (Norvasc) 5 mg DAILY PO 12/29/16 16:15 12/30/16 09:00 (Neurontin) 300 mg DAILY@20 PO 12/29/16 20:00 12/29/16 21:11 (Roxicodone) 10 mg Q6H PRN PO 12/29/16 16:15 12/29/16 18:12 (Ativan) 1 mg Q6H PRN PO 12/29/16 16:15 (Ativan Inj) 1 mg Q6H PRN IM 12/29/16 16:15 (Ativan) 0.5 mg Q12H PRN PO 12/29/16 16:15 (Ativan Inj) 0.5 mg Q12H PRN IM 12/29/16 16:15 12/30/16 05:45 (Tylenol) 650 mg Q4H PRN PO 12/29/16 16:15 (Milk Of Magnesia Liq) 30 ml DAILY PRN PO 12/29/16 16:15 (Mag-Al Plus Susp Liq) 30 ml Q6H PRN PO 12/29/16 16:15 (Oramorph Sr) 45 mg Q12HR PO 12/29/16 21:00 12/30/16 09:00 (Theragran M Tab) 1 tab DAILY PO 12/30/16 09:00 (Miralax) 17 gm DAILY PO 12/30/16 09:00 12/30/16 09:00 (Duragesic 50 Mcg Patch.72 Hr) 1 patch Q3D T-DERMAL 12/29/16 18:00 12/29/16 18:00 Miscellaneous Information 1 Q3D T-DERMAL 01/01/17 18:00 (ZyPREXA) 2.5 mg Q12H PO 12/29/16 21:00 12/30/16 09:00 (ZyPREXA INJ) 5 mg Q12H PRN IM 12/29/16 18:15 12/29/16 18:11 (Lopressor) 50 mg Q8HR PO 12/29/16 22:00 12/29/16 21:12 (Remeron) 15 mg HS PO 12/30/16 21:00 Family History Mother with history of diabetes and rheumatic fever. Father was healthy. Social History Patient admits to drinking 4 beers daily and 2 glasses of wine at night. She has been smoking half a pack per day for the past 50 years. She denies illicit drug use. Patient was born and raised in [place]. She lives alone in [place], she is single, no kids. Physical Exam Vital Signs Vital Signs Date Time Temp Pulse Resp B/P Pulse Ox O2 Delivery O2 Flow Rate FiO2 12/30/16 13:27 97.7 123 18 123/60 94 12/30/16 09:58 98.1 122 24 154/74 96 12/30/16 06:00 97.5 120 20 186/74 95 12/30/16 00:00 97.6 80 18 130/68 96 12/29/16 21:00 Nasal Cannula 2.00 Physical Exam GENERAL: This is a well-nourished, well-developed patient, in no apparent distress. Confused. Limited examination due to patients encephalopathy. SKIN: Nodular indurated non fluctuant tender mass over the twelfth intercostal rib. HEAD: Atraumatic. Normocephalic. No temporal or scalp tenderness. EYES: Pupils equal round and reactive. No scleral icterus. No injection or drainage. ENT: Nose without bleeding, purulent drainage or septal hematoma. Dry mucus membranes. Unable to fully assess due to poor patient effort. NECK: Trachea midline. No JVD or lymphadenopathy. CARDIOVASCULAR: Regular rate and rhythm. (+)Holosystolic murmur. RESPIRATORY: Clear to auscultation. Breath sounds equal bilaterally. No wheezes , rales, or rhonchi. GASTROINTESTINAL: Abdomen soft, non-tender, nondistended. No hepato-splenomegaly , or palpable masses. No guarding. MUSCULOSKELETAL: Extremities without clubbing, cyanosis, or edema. No joint tenderness, effusion, or edema noted. No calf tenderness. GENITOURINARY: Nurse at bedside performed bladder scan showing PVR of 419. NEUROLOGICAL: Complete neurologic exam unable to be done due to patients cognitive impairment however she moves all extremities. Assessment and Plan Assessment and Plan 71 yo female with multiple bony lytic lesions concerning for metastatic disease and soft tissue mass near the ribs s/p biopsy with results favoring transitional cell carcinoma. Encephalopathy-Delirium Possibly due to metastatic lesion Recent CT head negative Discussed repeat imaging with healthcare surrogate who has requested palliative care consultation Consult palliative care Metastatic disease suspect secondary to transitional cell carcinoma unknown primary s/p biopsy of rib soft tissue mass with pathology favoring transitional cell carcinoma follow up on pathology of CT guided biopsy of adnexal mass Holosystolic murmur Will hold off on ordering echocardiogram for now Developing plan of care with Hospice and healthcare surrogate Dysphagia Keep NPO IVF ordered Discontinue all po meds hold off on NGT Urinary retention place gee catheter gee management DVT prophylaxis SCD/DARIAN hose encourage ambulation This note was transcribed by briana Campbell. I, Dr. Ashu Morales personally performed the history, physical exam, and medical decision making; and confirmed the accuracy of the information in the transcribed note. Authenticated by Dr. Ashu Morales on 12/30/16 at 18:19 Discussed Condition With Healthcare surrogate and nursing staff Elmira Campbell December 30, 2016 18:07 Ashu Hartley MD December 30, 2016 18:19
[2016-12-30] MEDS: SODIUM CHLOR 0.9% 1000 ML INJ 1,000 ML IV SCH (18:15)
[2016-12-30] MEDS ORDERED: ENALAPRILAT 1.25 MG/ML VIAL IV PUSH PRN (18:30)
[2016-12-30 19:40] LABS: AUTOMATED NEUTROPHIL # 5.7 TH/MM3 (1.8-7.7); BASOPHIL # 0.1 TH/MM3 (0-0.2); BASOPHIL % 0.7 % (0.0-2.0); EOSINOPHIL # 0.1 TH/MM3 (0-0.4); EOSINOPHIL % 1.9 % (0.0-4.0); HEMATOCRIT 34.2 % (35.0-46.0); HEMO FLAGS DIFF FINAL; LYMPHOCYTE # 0.6 TH/MM3 (1.0-4.8); MEAN CELL VOLUME 91.4 FL (80.0-100.0); MEAN CORPUSCULAR HEMOGLOBIN 31.8 PG (27.0-34.0); MEAN CORPUSCULAR HGB CONC 34.7 % (32.0-36.0); MONO % 9.1 % (0.0-8.0); NEUT % 79.3 % (16.0-70.0); PLATELET COUNT 405 TH/MM3 (150-450); RED BLOOD COUNT 3.75 MIL/MM3 (4.00-5.30); RED CELL DISTRIBUTION WIDTH 11.6 % (11.6-17.2); WHITE BLOOD COUNT 7.2 TH/MM3 (4.0-11.0)
[2016-12-30] MEDS: GABAPENTIN 300 MG CAP PO SCH (20:00)
[2016-12-30 20:04] LABS: ANION GAP 9 MEQ/L (5-15)
[2016-12-30 20:12] LABS: ALKALINE PHOSPHATASE 165 U/L (45-117); ALT (GPT) 23 U/L (10-53); AST (GOT) 18 U/L (15-37); BICARBONATE 30.1 MEQ/L (21.0-32.0); BLOOD UREA NITROGEN 15 MG/DL (7-18); CHLORIDE 102 MEQ/L (98-107); GLOMERULAR FILTRATION RATE 124 ML/MIN (>89); MAGNESIUM 2.1 MG/DL (1.5-2.5); SODIUM (NA) 141 MEQ/L (136-145); TOTAL BILIRUBIN ADULT 0.6 MG/DL (0.2-1.0)
[2016-12-30 20:34] LABS: POTASSIUM 2.5 MEQ/L (3.5-5.1)
[2016-12-30] MEDS ORDERED: MIRTAZAPINE 15 MG TAB PO SCH (21:00)
[2016-12-30] MEDS: POTASSIUM CHLOR 20 MEQ PREMIX 100 ML IV SCH ×2 (21:00→23:00)
[2016-12-31] MEDS: OLANZapine IM 10 MG VIAL IM PRN (00:02)
[2016-12-31] MEDS: POTASSIUM CHLOR 20 MEQ PREMIX 100 ML IV SCH (01:00)
[2016-12-31] MEDS: SODIUM CHLOR 0.9% 1000 ML INJ 1,000 ML IV SCH ×2 (04:15→14:15)
[2016-12-31] MEDS ORDERED: MORPHINE SULFATE 4 MG/ML INJ IV PUSH ONE ×2 (05:15→20:30)
[2016-12-31 05:23] VITALS: BP 157/86; PULSE 114; TEMP 97.9; O2SAT 93
[2016-12-31] MEDS: METOPROLOL TARTRATE 25 MG TAB PO SCH ×2 (05:48→14:00)
[2016-12-31] MEDS ORDERED: POTASSIUM CHLORIDE 20 MEQ CONTROLLED RELEASE TAB PO ONE (06:30)
[2016-12-31] MEDS: MULTIVITAMINS/MINERALS THERAPEUTIC TAB PO SCH (08:43)
[2016-12-31] MEDS: MORPHINE SULFATE 15 MG CONTROLLED RELEASE TAB PO SCH (08:44)
[2016-12-31] MEDS: OLANZapine 2.5 MG TAB PO SCH (08:44)
[2016-12-31] MEDS: amLODIPine BESYLATE 5 MG TAB PO SCH (08:44)
[2016-12-31] MEDS: POLYETHYLENE GLYCOL 17 GM PKG PO SCH (09:00)
--- NOTE | 2016-12-31 11:57 | HHI.PR ---
Subjective Remarks Follow up encephalopathy, transitional cell carcinoma and dysphagia. Patient seen and examined. Patient lying in bed sleeping in no apparent distress. Awakens to stimulation. Relatively oriented with some confusion to situation. Was given IM Zyprexa overnight for increased agnation. Denies any new acute complaints such as fever, chills, cough, shortness of breath, abdominal pain, n/ v, dysuria. Spoke to RN and states that patient has had severe back pain but is refusing all PO medications. Was given one time Morphine IV this am. Patient states pain is currently controlled. Objective Vitals Vital Signs Date Time Temp Pulse Resp B/P Pulse Ox O2 Delivery O2 Flow Rate FiO2 12/31/16 09:01 Nasal Cannula 3.00 12/31/16 05:23 97.9 114 157/86 93 12/31/16 03:53 20 12/30/16 22:11 Nasal Cannula 2.00 12/30/16 13:27 97.7 123 18 123/60 94 I/O 12/30/16 12/30/16 12/30/16 12/31/16 12/31/16 12/31/16 06:59 14:59 22:59 06:59 14:59 22:59 Intake Total 505 ml Balance 505 ml Intake IV Total 505 ml # Voids 2 2 Result Diagram: 12/30/16190712/30/161907 Objective Remarks GENERAL: Well-nourished, well-developed patient, in no apparent distress. Somewhat confused. Limited examination due to patients encephalopathy. SKIN: Nodular indurated non fluctuant tender mass over the twelfth intercostal rib. HEENT: Atraumatic. Normocephalic. No temporal or scalp tenderness. Pupils equal round and reactive. No scleral icterus. No injection or drainage. Nose without bleeding, purulent drainage or septal hematoma. Dry mucus membranes. NECK: Trachea midline. No JVD or lymphadenopathy. CARDIOVASCULAR: Regular rate and rhythm. (+) Holosystolic murmur. RESPIRATORY: Clear to auscultation. Breath sounds equal bilaterally. No wheezes , rales, or rhonchi. GASTROINTESTINAL: Abdomen soft, non-tender, nondistended. No guarding. MUSCULOSKELETAL: Extremities without clubbing, cyanosis, or edema. No joint tenderness, effusion, or edema noted. No calf tenderness. NEUROLOGICAL: Normal speech. Moves all extremities. No tremors. A/P Assessment and Plan 71 yo female with multiple bony lytic lesions concerning for metastatic disease and soft tissue mass near the ribs s/p biopsy with results favoring transitional cell carcinoma. Delirium suspect secondary to metabolic encephalopathy secondary to due to metastatic lesion Recent CT head negative. Discussed repeat imaging with healthcare surrogate who has requested hospice consultation. Consult Hospice. Will repeat chest x-ray, follow. Oxygen saturations trending down even while on supplemental O2. Monitor. Metastatic disease suspect secondary to transitional cell carcinoma Primary source bladder cancer s/p biopsy of rib soft tissue mass with pathology favoring transitional cell carcinoma follow up on pathology of CT guided biopsy of adnexal mass Hypernatremia: NA today 148. Will change IVF to 1/2 NS at 100ml/hr. BMP in am. Hypokalemia: Status post replacement for k of 2.5, 60 meq IV and 20 meq PO. Rechecked k 2.8, KCL eff 50 meq PO x 1 now and kcl 20 meq IV x 1 now. Recheck k at 2200. Holosystolic murmur EKG ordered. Follow. Will hold off on ordering echocardiogram for now, developing plan of care with hospice and healthcare surrogate. Dysphagia Keep NPO Continue IVF Discontinue all po meds. Aspiration precautions Urinary retention suspect secondary to primary bladder cancer Gilbert cath initially inserted for increased PVR. Gilbert cath now removed. Monitor urine output and for retention. Please obtain UA when able. D/w patient, RN and Dr. Rajput Attending Statement This note was transcribed by briana Martinez. I, Dr. Ashu Morales personally performed the history, physical exam, and medical decision making; and confirmed the accuracy of the information in the transcribed note. Authenticated by Dr. Ashu Morales on 12/31/16 at 18:34. Patient seen and examined. Patients heart rate very elevated. Patient more awake but still confused. discussed with RN still having difficulty swallowing. Patient awake and alert but consfused, not following commands. Does not look in respiratory distress. S1S2 tachycardic, irregularly irregular with a systolic murmur. Abdomen is soft, lungs clear. 1. Encephalopathy 2. metastatic cancer 3. New onet atrial fibrillation with RVR 4. Hypernatremia 5 hypokalemia Replace electrolytes start in hypotonic saline and monitor sodium' will try oral cardizem to contro heart rate if not better then will need to transfer patient to medical floor Palliative care consulted. Danielle Martinez December 31, 2016 11:57 Ashu Hartley MD December 31, 2016 18:43
--- NOTE | 2016-12-31 13:12 | HHI.PYPN ---
Subjective Remarks Patient psychotic and nonsensical. Hospice consult ordered due to end-stage cancer. No changes in psychiatric treatment warranted. Review of Systems ROS Limitations: Altered Mental Status, Psychotic Objective Alert: No [place]: Person Mood: Anxious Affect: Labile Memory Intact: Comment Hallucinations: Other Delusions: Yes Delusion Type: Other Suicidal: Ideation Homicidal: Ideation Insight/Judgment Impaired Labs Test 12/30/16 19:08 White Blood Count 7.2 TH/MM3 Red Blood Count 3.75 MIL/MM3 Hemoglobin 11.9 GM/DL Hematocrit 34.2 % Mean Corpuscular Volume 91.4 FL Mean Corpuscular Hemoglobin 31.8 PG Mean Corpuscular Hemoglobin 34.7 % Concent Red Cell Distribution Width 11.6 % Platelet Count 405 TH/MM3 Mean Platelet Volume 7.8 FL Neutrophils (%) (Auto) 79.3 % Lymphocytes (%) (Auto) 9.0 % Monocytes (%) (Auto) 9.1 % Eosinophils (%) (Auto) 1.9 % Basophils (%) (Auto) 0.7 % Neutrophils # (Auto) 5.7 TH/MM3 Lymphocytes # (Auto) 0.6 TH/MM3 Monocytes # (Auto) 0.7 TH/MM3 Eosinophils # (Auto) 0.1 TH/MM3 Basophils # (Auto) 0.1 TH/MM3 CBC Comment DIFF FINAL Differential Comment Sodium Level 141 MEQ/L Potassium Level 2.5 MEQ/L Chloride Level 102 MEQ/L Carbon Dioxide Level 30.1 MEQ/L Anion Gap 9 MEQ/L Blood Urea Nitrogen 15 MG/DL Creatinine 0.49 MG/DL Estimat Glomerular Filtration 124 ML/MIN Rate Random Glucose 110 MG/DL Calcium Level 10.5 MG/DL Phosphorus Level 2.9 MG/DL Magnesium Level 2.1 MG/DL Total Bilirubin 0.6 MG/DL Aspartate Amino Transf 18 U/L (AST/SGOT) Alanine Aminotransferase 23 U/L (ALT/SGPT) Alkaline Phosphatase 165 U/L Total Protein 7.5 GM/DL Albumin 2.6 GM/DL Vitals/IOs Vital Signs Date Time Temp Pulse Resp B/P Pulse Ox O2 Delivery O2 Flow Rate FiO2 12/31/16 09:01 Nasal Cannula 3.00 12/31/16 05:23 97.9 114 157/86 93 12/31/16 03:53 20 Intake and Output 12/30/16 12/30/16 12/31/16 08:00 16:00 00:00 Intake Total 505 ml Balance 505 ml Assessment & Plan Problem List: (1) Unspecified psychosis ICD Code: F29 Assessment & Plan Estimated LOS: 5 days obtain hospice consult Justification for Cont. Inpt. Unable to care for self. Benitez Nash MD December 31, 2016 13:12
[2016-12-31 15:25] LABS: BICARBONATE 29.3 MEQ/L (21.0-32.0)
[2016-12-31 15:38] LABS: POTASSIUM 2.8 MEQ/L (3.5-5.1)
[2016-12-31] MEDS ORDERED: POTASSIUM CHLORIDE 25 MEQ EFFERVESCENT TAB PO ONE (15:45)
[2016-12-31] MEDS ORDERED: POTASSIUM CHLOR 20 MEQ PREMIX 100 ML IV ONE (16:00)
[2016-12-31] MEDS ORDERED: MORPHINE SULFATE 4 MG/ML INJ IV PUSH PRN (16:00)
[2016-12-31] MEDS ORDERED: SODIUM CHLOR 0.45% 1000 ML INJ 1,000 ML IV SCH (16:00)
--- NOTE | 2016-12-31 17:21 | RADRPT ---
EXAM DATE/TIME: 12/31/2016 16:17 [facility] COMPARISON: CHEST SINGLE AP, December 19, 2016, 14:39. INDICATIONS : Encephalopathy. MEDICAL HISTORY : Arthritis. SURGICAL HISTORY : hip surgery ENCOUNTER: Initial ACUITY: 1 day PAIN SCORE: Non-responsive. LOCATION: Bilateral upper chest FINDINGS: Thoracolumbar scoliosis is noted. There is compensated cardiomegaly without overt congestive failure or inflammatory infiltrates. Minimal bibasilar parenchymal changes persist in both bases, worse on the left. CONCLUSION: Compensated cardiomegaly. Gideon Khan MD FACR on December 31, 2016 at 17:04 Board Certified Radiologist. This report was verified electronically.
[2016-12-31] MEDS ORDERED: DILTIAZEM HCL 30 MG TAB PO SCH (18:00)
[2016-12-31 18:25] VITALS: BP 205/92; PULSE 120; RESP 18; O2SAT 89
[2016-12-31 20:56] VITALS: BP 144/101; PULSE 124; RESP 18; TEMP 97.9; O2SAT 94
[2016-12-31] MEDS ORDERED: DILTIAZEM INJ 125 MG in SODIUM CHLORIDE 0.9% INJ 100 ML IV SCH (21:00)
--- NOTE | 2017-01-01 14:54 | EKG ---
Date Performed: 12/31/2016 Time Performed: 17:33:37 PTAGE: 71 years EKG: Sinus rhythm with premature atrial contractions with some Abberant conduction. Sinus tachy cardia present. Marked baseline artifact. Non specific ST wave change. When compared to previous tracing, heart rate is fas ter and the Premature atrial contractions are new. ABNORMAL ECG PREVIOUS TRACING : 12/17/2016 10.01 DOCTOR: Benitez Vera Interpretating Date/Time 01/01/2017 14:53:22
[2017-01-01] MEDS ORDERED: REMOVE OLD DURAGESIC (FENTANYL) PATCH T-DERMAL SCH (18:00)
== END 2016-12-31 22:52 | disposition still patient (30) | DRG 885 ==
LOC: H4EA 16:00
PROVIDERS: ADMIT Psychiatry & Neurology Psychiatry; ATTEND Psychiatry & Neurology Psychiatry
DX: F23 Brief psychotic disorder (principal); E87.0 Hyperosmolality and hypernatremia; G93.41 Metabolic encephalopathy; C79.51 Secondary malignant neoplasm of bone; R45.851 Suicidal ideations; R13.10 Dysphagia, unspecified; C67.9 Malignant neoplasm of bladder, unspecified; M06.9 Rheumatoid arthritis, unspecified; M41.9 Scoliosis, unspecified; E87.6 Hypokalemia; F17.210 Nicotine dependence, cigarettes, uncomplicated; R33.8 Other retention of urine
CPT/HCPCS: 71010; 80048; 80053; 83735; 84100; 85025; 93005; J2060; J2270; J3480; J7030

== ENCOUNTER 2016-12-31 21:19 | Inpatient (IN) | payer MEDICARE ==
[~2016-12-31 21:19] MED LIST changes: -ADVI200C5 PO; -HYDR-3533 PO; -NAPR220T95 PO
[2016-12-31 23:00] VITALS: BP 116/72; PULSE 111; RESP 20; TEMP 98.2; O2SAT 94
[2016-12-31] MEDS ORDERED: BISACODYL 10 MG SUPP RECTAL PRN (23:45)
[2016-12-31] MEDS ORDERED: LORazepam 0.5 MG TAB PO PRN (23:45)
[2016-12-31] MEDS ORDERED: MAGNESIUM HYDROXIDE SUSP 30 ML CUP PO PRN (23:45)
[2016-12-31] MEDS ORDERED: SODIUM CHLORIDE 0.9% FLUSH 10 ML FLUSH IV FLUSH PRN (23:45)
[2016-12-31] MEDS ORDERED: NALOXONE HCL 0.4 MG/ML AMP IV PRN (23:45)
[2016-12-31] MEDS ORDERED: ONDANSETRON HCL 4 MG/2 ML VIAL IVP PRN (23:45)
[2016-12-31] MEDS ORDERED: ACETAMINOPHEN 325 MG TAB PO PRN (23:45)
[2016-12-31] MEDS: DILTIAZEM INJ 125 MG in SODIUM CHLORIDE 0.9% INJ 100 ML IV SCH (23:55)
[2017-01-01] VITALS (25 sets, daily range): BP systolic 153–173; BP diastolic 68–88; PULSE 90–128; RESP 16–20; TEMP 97.6–98.6; O2SAT 93–97
[2017-01-01] MEDS ORDERED: fentaNYL 50 MCG/HR PATCH TOPICAL SCH
[2017-01-01] MEDS: ENOXAPARIN SODIUM 40 MG/0.4 ML SYRINGE SQ SCH (00:21)
[2017-01-01] MEDS: POTASSIUM CHLOR 20 MEQ PREMIX 100 ML IV SCH ×8 (00:30→22:43)
--- NOTE | 2017-01-01 00:34 | HHI.HP ---
[facility] Service [facility] Hospitalists Primary Care Physician Unknown Admission Diagnosis A Fib/Flutter with RVR Diagnoses: Chief Complaint: Atrial fibrillation/flutter with RVR Travel History International Travel<30 Days: No Contact w/Intl Traveler <30 Da: No History of Present Illness 71 yo female with past medical history which includes Rheumatoid arthritis, history of alcohol abuse and scoliosis. Patient found to have multiple bony lytic lesions concerning for metastatic disease and soft tissue mass near the ribs s/p biopsy with results favoring transitional cell carcinoma. Patient underwent soft tissue biopsy on 12/19 which favors transitional cell carcinoma. She underwent a cystoscopy and biopsy of bladder wall with no significant pathology as well as CT guided biopsy of adnexal mass with current pathology pending. She began radiation treatments on 12/25 to the ribs and spine - 10 treatment planned to ribs and 5 treatments for spine. She had one treatment of radiation only with refusal of subsequent treatments. Dr. Patterson was consulted. She has had difficulty with pain control and has been unable to ambulate as a result. She developed acute psychosis and was seen in consultation by Dr. Travis. CT of the head was negative. Patients now with encephalopathy, patient is unable to give adequate medical history. Patient able to say good morning but unable to provide her name and location or date. Therefore, medical history is obtained from review of the medical record, prior computerized charting. EKG reviewed and reveals atrial fibrillation/flutter with rapid ventricular response heart rate 124 bpm. A Fib continued after PO Cardizem. Transferred to [facility] for Cardizem drip. Blood pressure 116/72 respiratory rate 20 pulse oximetry 94% on room air temperature 98.2 Review of Systems ROS Limitations: Clinical Condition Past Family Social History Past Medical History Rheumatoid arthritis History of alcohol abuse Scoliosis Past Surgical History Right hip fracture repair with rods and plates Reported Medications Potassium Chloride Microencaps 20 Meq Tab 20 Meq PO DAILY 30 Days Polyethylene Glycol 3350 Powder (Polyethylene Glycol) 17 Gm Pow 17 Gm PO DAILY 30 Days Oxycodone (Oxycodone HCl) 10 Mg Tab 10 Mg PO Q6H PRN 10 Days Metoprolol Tartrate 25 Mg Tab 25 Mg PO Q8HR 30 Days Neurontin (Gabapentin) 300 Mg Cap 300 Mg PO DAILY@20 Duragesic Patch 72 HR (Fentanyl) 50 Mcg/Hr Patch 1 Patch TOPICAL Q72H 30 Days Norvasc (Amlodipine Besylate) 5 Mg Tab 5 Mg PO DAILY 30 Days Percocet (Oxycodone-Acetaminophen) 7.5-325 mg Tab 1 Tab PO Q6H PRN Multivitamin Women (Multiple Vitamins W/ Minerals) 1 Tab Tab 1 Tab PO DAILY [place]-3 Fish Oil/Vitamin (Fish Oil-Cholecalciferol) 1,000-1,000 Mg Cap 1 Cap PO DAILY Allergies: Coded Allergies: No Known Allergies (Verified , 12/17/16) Active Ordered Medications Current Medications Medications (Trade) Dose Ordered Sig/Hoang Route Start Time Stop Time Status Last Admin (NS Flush) 2 ml UNSCH PRN IV FLUSH 12/31/16 23:45 (NS Flush) 2 ml BID IV FLUSH 01/01/17 09:00 (Tylenol) 650 mg Q4H PRN PO 12/31/16 23:45 (Zofran Inj) 4 mg Q6H PRN IVP 12/31/16 23:45 (Lovenox Inj) 40 mg Q24H SQ 01/01/17 00:00 (Narcan Inj) 0.4 mg UNSCH PRN IV 12/31/16 23:45 (Salome-Colace) 1 tab BID PO 01/01/17 09:00 (Milk Of Magnesia Liq) 30 ml Q12H PRN PO 12/31/16 23:45 Bisacodyl 10 mg 10 mg DAILY PRN RECTAL 12/31/16 23:45 (Cardizem Inj/NS Inj) 125 ml @ 0 mls/hr TITRATE IV 12/31/16 23:45 12/31/16 23:55 (Norvasc) 5 mg DAILY PO 01/01/17 09:00 (Duragesic 50 Mcg Patch.72 Hr) 1 patch Q72H TOPICAL 01/01/17 00:00 (Neurontin) 300 mg DAILY@20 PO 01/01/17 20:00 (Roxicodone) 10 mg Q6H PRN PO 12/31/16 23:45 (Miralax) 17 gm DAILY PO 01/01/17 09:00 (Lopressor) 50 mg Q8HR PO 01/01/17 06:00 (Ativan) 0.5 mg Q12H PRN PO 12/31/16 23:45 (Oramorph Sr) 45 mg Q12HR PO 01/01/17 09:00 (ZyPREXA) 2.5 mg Q12HR PO 01/01/17 09:00 Family History Mother with history of diabetes and rheumatic fever. Father was healthy Social History Patient admits to drinking 4 beers daily and 2 glasses of wine at night. She has been smoking half a pack per day for the past 50 years. She denies illicit drug use. Physical Exam Vital Signs Vital Signs Date Time Temp Pulse Resp B/P Pulse Ox O2 Delivery O2 Flow Rate FiO2 12/31/16 23:00 98.2 111 20 116/72 94 Physical Exam GENERAL: Elderly female appears comfortable but unable to provide meaningful information HEAD: Atraumatic. Normocephalic. No temporal or scalp tenderness. EYES: Extraocular motions intact. No scleral icterus. No injection or drainage. CARDIOVASCULAR: Irregularly irregular with a holosystolic murmur noted RESPIRATORY: Clear to auscultation. Breath sounds equal bilaterally. No wheezes , rales, or rhonchi. GASTROINTESTINAL: Abdomen soft, generalized tenderness to palpation, nondistended. MUSCULOSKELETAL: Patient is tender to palpation over the upper back/thoracic region. She also endorsed tenderness to palpation over the left lower ribs. Extremities without clubbing, cyanosis, or edema. NEUROLOGICAL: Awake and disoriented 3. No focal deficits appreciated. Difficult to assess patient unable to follow commands does move all 4 extremities spontaneously. Assessment and Plan Problem List: (1) Atrial fibrillation with RVR ICD Code: I48.91 Status: Acute (2) Lytic lesion of bone on x-ray ICD Code: M89.9 Status: Acute (3) Metastatic disease ICD Code: C79.9 Status: Acute (4) Unspecified psychosis ICD Code: F29 Status: Acute Assessment and Plan 71 yo female with multiple bony lytic lesions concerning for metastatic disease and soft tissue mass near the ribs s/p biopsy with results favoring transitional cell carcinoma. Atrial fibrillation/flutter with RVR Failed by mouth therapy Start Cardizem drip IV Continuous telemetry monitoring Encephalopathy-Delirium Possibly due to metastatic lesion Recent CT head negative Discussed repeat imaging with healthcare surrogate who has requested palliative care consultation Consult palliative care Consult psychiatry Metastatic disease - transitional cell carcinoma unknown primary s/p biopsy of rib soft tissue mass with pathology favoring transitional cell carcinoma follow up on pathology of CT guided biopsy of adnexal mass Holosystolic murmur Will hold off on ordering echocardiogram for now Dysphagia Keep NPO IVF ordered Hold all po meds hold off on NGT Urinary retention gee catheter Hypokalemia continue to replace IV as patient is nothing by mouth Recheck in a.m. DVT prophylaxis with Lovenox Discussed with nursing, patient and Dr. Katz Physician Certification 2 Midnight Certification Type: Admission for Inpatient Services Order for Inpatient Services The services are ordered in accordance with Medicare regulations or non- Medicare payer requirements, as applicable. In the case of services not specified as inpatient-only, they are appropriately provided as inpatient services in accordance with the 2-midnight benchmark. Estimated LOS (days): 2 days is the estimated time the patient will need to remain in the hospital, assuming treatment plan goals are met and no additional complications. Post-Hospital Plan: Not yet determined Vianca Dickson January 01, 2017 00:34 Brianne Katz MD January 01, 2017 00:44
[2017-01-01] MEDS: NS + KCL 20 MEQ INJ 1,000 ML IV SCH ×2 (00:45→10:52)
[2017-01-01] MEDS ORDERED: LORazepam 2 MG/ML VIAL IV PUSH ONE (01:15)
[2017-01-01 04:51] LABS: AUTOMATED NEUTROPHIL # 5.9 TH/MM3 (1.8-7.7); BASOPHIL % 0.5 % (0.0-2.0); EOSINOPHIL # 0.1 TH/MM3 (0-0.4); EOSINOPHIL % 1.6 % (0.0-4.0); HEMATOCRIT 33.9 % (35.0-46.0); HEMO FLAGS DIFF FINAL; LYMPH % 7.9 % (9.0-44.0); LYMPHOCYTE # 0.6 TH/MM3 (1.0-4.8); MEAN CORPUSCULAR HEMOGLOBIN 31.2 PG (27.0-34.0); MEAN CORPUSCULAR HGB CONC 33.1 % (32.0-36.0); MONO % 9.5 % (0.0-8.0); NEUT % 80.5 % (16.0-70.0); PLATELET COUNT 367 TH/MM3 (150-450); RED BLOOD COUNT 3.61 MIL/MM3 (4.00-5.30); RED CELL DISTRIBUTION WIDTH 11.8 % (11.6-17.2); WHITE BLOOD COUNT 7.4 TH/MM3 (4.0-11.0)
[2017-01-01] MEDS: METOPROLOL TARTRATE 50 MG TAB PO SCH ×2 (04:55→07:59)
[2017-01-01 05:25] LABS: BICARBONATE 28.4 MEQ/L (21.0-32.0)
[2017-01-01 05:26] LABS: POTASSIUM 2.5 MEQ/L (3.5-5.1)
[2017-01-01] MEDS: SODIUM CHLORIDE 0.9% FLUSH 10 ML FLUSH IV FLUSH SCH ×2 (07:58→20:45)
[2017-01-01] MEDS ORDERED: amLODIPine BESYLATE 5 MG TAB PO SCH (09:00)
[2017-01-01] MEDS ORDERED: DOCUSATE SODIUM 50 MG/SENNA 8.6 MG TAB PO SCH (09:00)
[2017-01-01] MEDS ORDERED: OLANZapine 2.5 MG TAB PO SCH (09:00)
[2017-01-01] MEDS ORDERED: MORPHINE SULFATE 30 MG CONTROLLED RELEASE TAB PO SCH (09:00)
[2017-01-01] MEDS ORDERED: POLYETHYLENE GLYCOL 17 GM PKG PO SCH (09:00)
[2017-01-01] MEDS ORDERED: hydrALAZINE HCL 20 MG/ML VIAL IV PUSH PRN (10:15)
--- NOTE | 2017-01-01 14:20 | HHI.PR ---
Addendum to Inpatient Note Addendum Reason: Additional Documentation Additional Information Patient seems to be confused but awake. Ordered Dysphagia evaluation which patient has failed. Keep NPO. Patient is awake and alert, very confused, tangential thoughts. Lungs are clear. Abdomen is soft with bowel sounds present. Patient transferred from psychiatry due to new onset atrial fibrillation w RVR - patient has converted back to sinus rythm - start on metoprolol 50 mg bid and DC Cardizem gtt. Palliative care consult pending Health care surrogate leaning towards comfort measures Ashu Hartley MD January 01, 2017 14:20
[2017-01-01] MEDS: DILTIAZEM INJ 125 MG in SODIUM CHLORIDE 0.9% INJ 100 ML IV SCH (14:55)
[2017-01-01] MEDS: POTASSIUM CHLORIDE INJ 20 MEQ, SODIUM CHLORIDE 23.4% INJ 38.5 MEQ in WATER STERILE FOR ... IV SCH (14:55)
[2017-01-01 16:23] LABS: BICARBONATE 26.4 MEQ/L (21.0-32.0)
[2017-01-01 16:27] LABS: POTASSIUM 2.9 MEQ/L (3.5-5.1)
[2017-01-01] MEDS: MAGNESIUM SULFATE 1 GM PREMIX 100 ML IV SCH ×2 (17:17→17:46)
[2017-01-01] MEDS: MORPHINE SULFATE 4 MG/ML INJ IV PUSH SCH (17:46)
--- NOTE | 2017-01-01 18:08 | HHI.PYPN ---
Subjective Remarks Pt. known by this physician and we have nothing additional to offer at this time. Will follow.. Review of Systems ROS Limitations: Clinical Condition Objective Alert: Yes [place]: Person Mood: Anxious Affect: Labile Memory Intact: Immediate Hallucinations: Other Delusions: No Delusion Type: Other Suicidal: Ideation Homicidal: Ideation Insight/Judgment Poor. Labs Test 01/01/17 01/01/17 04:41 15:23 White Blood Count 7.4 TH/MM3 Red Blood Count 3.61 MIL/MM3 Hemoglobin 11.2 GM/DL Hematocrit 33.9 % Mean Corpuscular Volume 94.0 FL Mean Corpuscular Hemoglobin 31.2 PG Mean Corpuscular Hemoglobin 33.1 % Concent Red Cell Distribution Width 11.8 % Platelet Count 367 TH/MM3 Mean Platelet Volume 7.5 FL Neutrophils (%) (Auto) 80.5 % Lymphocytes (%) (Auto) 7.9 % Monocytes (%) (Auto) 9.5 % Eosinophils (%) (Auto) 1.6 % Basophils (%) (Auto) 0.5 % Neutrophils # (Auto) 5.9 TH/MM3 Lymphocytes # (Auto) 0.6 TH/MM3 Monocytes # (Auto) 0.7 TH/MM3 Eosinophils # (Auto) 0.1 TH/MM3 Basophils # (Auto) 0.0 TH/MM3 CBC Comment DIFF FINAL Differential Comment Sodium Level 148 MEQ/L 148 MEQ/L Potassium Level 2.5 MEQ/L 2.9 MEQ/L Chloride Level 110 MEQ/L 109 MEQ/L Carbon Dioxide Level 28.4 MEQ/L 26.4 MEQ/L Anion Gap 10 MEQ/L 13 MEQ/L Blood Urea Nitrogen 9 MG/DL 9 MG/DL Creatinine 0.42 MG/DL 0.32 MG/DL Estimat Glomerular Filtration 148 ML/MIN 202 ML/MIN Rate Random Glucose 109 MG/DL 91 MG/DL Calcium Level 9.9 MG/DL 10.2 MG/DL Magnesium Level 1.7 MG/DL Vitals/IOs Vital Signs Date Time Temp Pulse Resp B/P Pulse Ox O2 Delivery O2 Flow Rate FiO2 01/01/17 17:56 16 01/01/17 17:44 Nasal Cannula 2.00 01/01/17 16:00 102 01/01/17 16:00 98.6 162/73 97 Assessment & Plan Problem List: (1) Unspecified psychosis ICD Code: F29 Assessment & Plan Estimated LOS: ? days Will follow. Justification for Cont. Inpt. Unable to care for self. Benitez Nash MD January 01, 2017 18:08
[2017-01-01] MEDS ORDERED: GABAPENTIN 300 MG CAP PO SCH (20:00)
[2017-01-01] MEDS: MORPHINE SULFATE 4 MG/ML INJ IV PUSH PRN (20:54)
[2017-01-01 22:07] LABS: BICARBONATE 26.2 MEQ/L (21.0-32.0); MAGNESIUM 2.4 MG/DL (1.5-2.5)
[2017-01-01 22:11] LABS: POTASSIUM 2.9 MEQ/L (3.5-5.1)
[2017-01-02] VITALS (18 sets, daily range): BP systolic 142–163; BP diastolic 68–87; PULSE 67–108; RESP 18–24; TEMP 98.1–98.8; O2SAT 96–98
[2017-01-02] MEDS: MORPHINE SULFATE 4 MG/ML INJ IV PUSH SCH ×3 (00:03→11:45)
[2017-01-02] MEDS: ENOXAPARIN SODIUM 40 MG/0.4 ML SYRINGE SQ SCH (00:03)
[2017-01-02] MEDS: POTASSIUM CHLOR 20 MEQ PREMIX 100 ML IV SCH ×3 (00:06→04:36)
[2017-01-02] MEDS: POTASSIUM CHLORIDE INJ 20 MEQ, SODIUM CHLORIDE 23.4% INJ 38.5 MEQ in WATER STERILE FOR ... IV SCH ×3 (00:06→14:04)
[2017-01-02] MEDS: MORPHINE SULFATE 4 MG/ML INJ IV PUSH PRN ×2 (01:56→08:34)
[2017-01-02] MEDS: SODIUM CHLORIDE 0.9% FLUSH 10 ML FLUSH IV FLUSH SCH (08:33)
[2017-01-02 09:00] LABS: BICARBONATE 25.4 MEQ/L (21.0-32.0); POTASSIUM 3.5 MEQ/L (3.5-5.1)
[2017-01-02] MEDS ORDERED: POTASSIUM CHLOR 20 MEQ PREMIX 100 ML IV ONE (11:15)
--- NOTE | 2017-01-02 13:24 | HHI.DCPOC ---
Discharge Care Plan Diagnosis: (1) Lytic lesion of bone on x-ray (2) Atrial fibrillation with RVR (3) Metastatic disease (4) Unspecified psychosis (5) Intractable pain (6) Acute psychosis (7) Hypertension (8) Altered mental status (9) Adnexal mass (10) Tobacco abuse (11) Hyponatremia (12) Back pain (13) Hypokalemia Goals to Promote Your Health * To prevent worsening of your condition and complications * To maintain your health at the optimal level Directions to Meet Your Goals Take your medications as prescribed Follow your dietary instruction Follow activity as directed Keep your appointments as scheduled Take your immunizations and boosters as scheduled If your symptoms worsen call your PCP, if no PCP go to Urgent Care Center or Emergency Room Smoking is Dangerous to Your Health. Avoid second hand smoke Call the 24-hour hour crisis hotline for domestic abuse at Ashu Hartley MD January 02, 2017 13:24
--- NOTE | 2017-01-02 13:25 | HHI.DS ---
Discharge Summary Admission Date December 31, 2016 at 23:10 Discharge Date: January 02, 2017 Admitting Diagnosis A Fib/Flutter with RVR (1) Atrial fibrillation with RVR ICD Code: I48.91 Diagnosis: Principal (2) Lytic lesion of bone on x-ray ICD Code: M89.9 Diagnosis: Principal (3) Metastatic disease ICD Code: C79.9 Diagnosis: Principal (4) Unspecified psychosis ICD Code: F29 Diagnosis: Principal Procedures none Brief History - From Admission 71 yo female with past medical history which includes Rheumatoid arthritis, history of alcohol abuse and scoliosis. Patient found to have multiple bony lytic lesions concerning for metastatic disease and soft tissue mass near the ribs s/p biopsy with results favoring transitional cell carcinoma. Patient underwent soft tissue biopsy on 12/19 which favors transitional cell carcinoma. She underwent a cystoscopy and biopsy of bladder wall with no significant pathology as well as CT guided biopsy of adnexal mass with current pathology pending. She began radiation treatments on 12/25 to the ribs and spine - 10 treatment planned to ribs and 5 treatments for spine. She had one treatment of radiation only with refusal of subsequent treatments. Dr. Patterson was consulted. She has had difficulty with pain control and has been unable to ambulate as a result. She developed acute psychosis and was seen in consultation by Dr. Travis. CT of the head was negative. Patients now with encephalopathy, patient is unable to give adequate medical history. Patient able to say good morning but unable to provide her name and location or date. Therefore, medical history is obtained from review of the medical record, prior computerized charting. EKG reviewed and reveals atrial fibrillation/flutter with rapid ventricular response heart rate 124 bpm. A Fib continued after PO Cardizem. Transferred to [facility] for Cardizem drip. Blood pressure 116/72 respiratory rate 20 pulse oximetry 94% on room air temperature 98.2 CBC/BMP: 01/01/17 0441 01/02/17 0729 Significant Findings Laboratory Tests Test 01/01/17 01/01/17 01/01/17 01/02/17 04:41 15:23 20:31 07:29 Red Blood Count 3.61 MIL/MM3 (4.00-5.30) Hemoglobin 11.2 GM/DL (11.6-15.3) Hematocrit 33.9 % (35.0-46.0) Neutrophils (%) (Auto) 80.5 % (16.0-70.0) Lymphocytes (%) (Auto) 7.9 % (9.0-44.0) Monocytes (%) (Auto) 9.5 % (0.0-8.0) Lymphocytes # (Auto) 0.6 TH/MM3 (1.0-4.8) Sodium Level 148 MEQ/L 148 MEQ/L (136-145) (136-145) Potassium Level 2.5 MEQ/L 2.9 MEQ/L 2.9 MEQ/L (3.5-5.1) (3.5-5.1) (3.5-5.1) Chloride Level 110 MEQ/L 109 MEQ/L 108 MEQ/L (98-107) (98-107) (98-107) Creatinine 0.42 MG/DL 0.32 MG/DL 0.32 MG/DL 0.38 MG/DL (0.50-1.00) (0.50-1.00) (0.50-1.00) (0.50-1.00) Random Glucose 109 MG/DL (74-106) Calcium Level 10.2 MG/DL (8.5-10.1) PE at Discharge GENERAL: Elderly female appears comfortable but unable to provide meaningful information HEAD: Atraumatic. Normocephalic. No temporal or scalp tenderness. Very dry mucus membranes. EYES: Extraocular motions intact. No scleral icterus. No injection or drainage. CARDIOVASCULAR: Irregularly irregular with a holosystolic murmur noted RESPIRATORY: Clear to auscultation. Breath sounds equal bilaterally. No wheezes , rales, or rhonchi. GASTROINTESTINAL: Abdomen soft, generalized tenderness to palpation, nondistended. MUSCULOSKELETAL: Patient is tender to palpation over the upper back/thoracic region. She also endorsed tenderness to palpation over the left lower ribs. Extremities without clubbing, cyanosis, or edema. NEUROLOGICAL: Awake and disoriented 3. No focal deficits appreciated. Difficult to assess patient unable to follow commands does move all 4 extremities spontaneously. Hospital Course 71 yo female with multiple bony lytic lesions concerning for metastatic disease and soft tissue mass near the ribs s/p biopsy with results favoring transitional cell carcinoma. Atrial fibrillation/flutter with RVR Failed by mouth therapy Started on Cardizem drip IV and later converted back to sinus rythm. Patient started on metoprolol 50 po BID for rate control and Cardizem drip discontinued. monitor car operator Dysphagia eval requested which patient failed. Encephalopathy-Delirium Possibly due to metastatic lesion Recent CT head negative Discussed repeat imaging with healthcare surrogate who has requested palliative care consultation Psychiatry consulted Palliative care consulted. Patient's health care surrogate and palliative care agreed patient met criterial for inpatient hospice. Hospice consulted and patient transfered to [facility] Metastatic disease - transitional cell carcinoma unknown primary s/p biopsy of rib soft tissue mass with pathology favoring transitional cell carcinoma follow up on pathology of CT guided biopsy of adnexal mass Holosystolic murmur Held on ordering any further studies since patient health care surrogate requested no more tests. Dysphagia Kept NPO IVF ordered Hold all po meds hold off on NGT Urinary retention gee catheter inserted Hypokalemia replaced IV as patient is nothing by mouth Pt Condition on Discharge: Stable Discharge Disposition: Hospice/Med Facility Discharge Time: <= 30 minutes Discharge Instructions DIET: Follow Instructions for: Heart Healthy Diet Speech Therapy-Diet Recommends: Pureed, [place] Thickened Liquids Activities you can perform: Continue Bedrest Ashu Hartley MD January 02, 2017 13:25
[2017-01-02] MEDS ORDERED: LORazepam 2 MG/ML VIAL IM PRN (13:30)
[2017-01-02] MEDS ORDERED: LORazepam 2 MG/ML VIAL IV PUSH PRN (13:30)
[2017-01-02] MEDS ORDERED: METOPROLOL TARTRATE 50 MG TAB PO SCH (14:00)
--- NOTE | 2017-01-02 14:20 | PD.CONS ---
Consult Service Palliative Care Consult Requested By Dr. Randolph MD. Primary Care Physician Unknown Reason for Consultation a. To assist with evaluation and management of symptoms including: Pain and debility. b. To assist medical decision maker(s) with: better understanding of current medical conditions; weighing benefits/burdens of medical treatment options; making medical treatment decisions. . (Amada Shanks) HPI History of Present Illness Mrs. Odell is a 71 y/o female with a past medical history of RA who originally presented to [place] ED on 12/17/16 for evaluation of left upper back pain. Patient endorsing ongoing pain for the previous 3 weeks prompting ED visit 2 days prior. At that time, CT scan of thoracic spine reveal diffuse lytic process concerning for metastatic disease. Patient was discharged home with instructions to follow-up with her primary care doctor and oncology. Patient reports that she was a unable to follow-up with her primary care physician which prompted return to ED on 12/17/16. Patient was admitted for further workup and evaluation. Workup as following. * CT abdomen lumbar and thoracic spine 12/15/16: Gliding bone destruction of the medial 11th rib with soft tissue mass. Mild compression fracture of L4 and T12 (prior ED visit). * CT abdomen and pelvis 12/17/16. Metastatic lesion to the left posterior acetabulum. Left adnexal mass measures 4.0 x 2.7 cm could be ovarian in etiology. Wall thickening involving the anterior urinary bladder measuring 11 mm in thickness. * CT pulmonary angiogram 12/17/16: Bibasilar patchy densities likely atelectasis. No evidence of PE. Metastatic lesions involving thoracic spine and right 11th ribs. Oncology, Dr. Lindsey consulted on 12/17/16 for evaluation of abnormal CT scan showing metastatic disease to bone and pelvic soft tissue mass. 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 Urology, Dr. 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 On 12/27/16 , patient underwent cystoscopy with bilateral retrograde study and bladder biopsy of posterior wall. On 12/22/16, radiation oncology, Dr. Chidi Marquez was consulted for evaluation. He recommended palliative radiation therapy. 10 treatment plan to ribs and 5 treatments planned to spine. Radiation treatments were not completed secondary to patient's increasingly agitation and confusion, he was placed in restraints while receiving treatment. Patient was seen by oncology, Dr. Patterson on 12/29/16 for evaluation of left ovarian mass s/p needle biopsy. Pathology negative for malignancy. Urinary bladder wall biopsy pathology negative for malignancy. Patient clinical condition is complicated by acute psychosis with periods of severe agitation. Patient was seen by Dr. Zhang and was admitted in Med- psy unit for stabilization of visual/auditory hallucinations, psychosis, agitation. While in the medical-psy unit, patient continue to have difficulty with pain control. Her clinical condition continued to deteriorate, lethargic, choking with meals, speeding pills out, confusion. Concerns for metastatic disease to brain. Head CT on 12/24/16 negative for metastatic disease. On , patient was transferred back to medical floor secondary to A. fib with RVR, rate 120s. She was placed on Cardizem drip. Patient was converted back to sinus rhythm; however, her clinical condition continued to deteriorate. Palliative care was consulted for further clarifications of goals of care given her metastatic disease and worsening clinical condition. Patient afebrile, hypertensive with SBP in the 160s. Currently tolerating room air. Most recent laboratory 01/01 17 showing WBC 7.4, Hgb 9.2, platelet count 360s. Chemistry 01/02/17 showing sodium 142, potassium 3.5, BUN/creatinine 8/ 0.3. Most recent checks x-ray 12/31/16 revealing compensated cardiomegaly. Patient seen in medical floor. She was resting in bed in no acute distress. Opening eyes to voice, answering some questions but remains confused. She was alert to self, disoriented as to place and situation. Unable to tell me her age. Patient answered "yes" when asked about pain, unable to elaborate further. Spoke with alternate healthcare surrogate Chioma Alvarenga. She provided documentation on advance directives. Spoke with primary healthcare surrogate Gee Strong Jr. who is patient's personal armhole baster jumpbasting. Mr. Strong wishing to participating medical decision-making. Reviewed events leading to these hospitalization, clinical course, diagnostic imaging, results of biopsy, and current medical management. Primary HCS electing to transition patient to comfort-directed care with hospice given her progressive metastatic disease, worsening clinical condition and known wishes. Alternate HCS also in agreement with comfort-directed care. Primary HCS Ligia is currently out of the state of [place] and unable to sign hospice documents. He has provided verbal authorization for alternate HCS to sign DNR and hospice documents. Case discussed with Dr. Rajput and rn case manager hospice. . Function/Cognitive Trajectory Patient living independently up until this acute admission. She was independent with all ADLs, driving, grocery shopping. Friend Chioma reports some physical decline within the past 2-3 months, patient grabbing to furniture while ambulating. Reporting fatigue. No decline in cognitive status reported. . (Amada Shanks) Review of Systems ROS Limitations: Clinical Condition, Altered Mental Status, Uncooperative, Poor Historian Constitutional: COMPLAINS OF: Fatigue, Pain, Generalized weakness, DENIES: Fever Endocrine: DENIES: Heat/cold intolerance Eyes: DENIES: Eye pain Ears, nose, mouth, throat: DENIES: Hearing loss Respiratory: COMPLAINS OF: Shortness of breath Cardiovascular: DENIES: Chest pain, Lower Extremity Edema Gastrointestinal: COMPLAINS OF: Abdominal pain, DENIES: Nausea, Vomiting Genitourinary: COMPLAINS OF: Urinary frequency Integumentary: COMPLAINS OF: Abnormal pigmentation Hematologic/Lymphatics: COMPLAINS OF: Bruising Immunologic/Allergic: DENIES: Eczema Neurologic: COMPLAINS OF: Abnormal gait Psychiatric: COMPLAINS OF: Anxiety, Confusion, Hallucinations, Agitation Other ROS: Limited ROS secondary to clinical condition, patient confused, lethargic. ROS obtained from prior medical records, family and clinical observation. (Amada Shanks) Past Family Social History Coded Allergies: No Known Allergies (Verified , 12/17/16) Past Medical History Skin cancer Scoliosis Right hip fracture Rheumatoid arthritis History of alcohol abuse . Past Surgical History Right hip fracture repair with rods and plates . Reported Medications Percocet (Oxycodone-Acetaminophen) 7.5-325 mg Tab 1 Tab PO Q6H PRN Aleve (Naproxen Sodium) 220 Mg Tab 220 Mg PO BID PRN Multivitamin Women (Multiple Vitamins W/ Minerals) 1 Tab Tab 1 Tab PO DAILY Advil (Ibuprofen) 200 Mg Cap 600 Mg PO TID [place]-3 Fish Oil/Vitamin (Fish Oil-Cholecalciferol) 1,000-1,000 Mg Cap 1 Cap PO DAILY . Current Medications Medications (Trade) Dose Ordered Sig/Hoang Route Start Time Stop Time Status Last Admin (NS Flush) 2 ml UNSCH PRN IV FLUSH 12/31/16 23:45 (NS Flush) 2 ml BID IV FLUSH 01/01/17 09:00 01/02/17 08:33 (Tylenol) 650 mg Q4H PRN PO 12/31/16 23:45 (Zofran Inj) 4 mg Q6H PRN IVP 12/31/16 23:45 (Lovenox Inj) 40 mg Q24H SQ 01/01/17 00:00 01/02/17 00:03 (Narcan Inj) 0.4 mg UNSCH PRN IV 12/31/16 23:45 (Salome-Colace) 1 tab BID PO 01/01/17 09:00 (Milk Of Magnjesenia Liq) 30 ml Q12H PRN PO 12/31/16 23:45 Hold (Dulcolax Supp) 10 mg DAILY PRN RECTAL 12/31/16 23:45 (Norvasc) 5 mg DAILY PO 01/01/17 09:00 Hold 01/01/17 07:58 (Duragesic 50 Mcg Patch.72 Hr) 1 patch Q72H TOPICAL 01/01/17 00:00 01/01/17 00:22 (Neurontin) 300 mg DAILY@20 PO 01/01/17 20:00 Hold (Roxicodone) 10 mg Q6H PRN PO 12/31/16 23:45 (Miralax) 17 gm DAILY PO 01/01/17 09:00 Hold (Ativan) 0.5 mg Q12H PRN PO 12/31/16 23:45 Hold (Oramorph Sr) 45 mg Q12HR PO 01/01/17 09:00 01/01/17 07:59 (ZyPREXA) 2.5 mg Q12HR PO 01/01/17 09:00 Hold Hydralazine HCl 10 mg 10 mg Q30M PRN IV PUSH 01/01/17 10:15 01/01/17 16:15 (KCl Inj/Sodium Chloride 23.4% Inj/Sterile Water For Inj) 1,019.625 ml @ 125 mls/hr Q8H10M IV 01/01/17 16:00 01/02/17 07:25 (Morphine Inj) 2 mg Q6HR IV PUSH 01/01/17 18:00 01/02/17 11:45 Morphine Sulfate 2 mg 2 mg Q4H PRN IV PUSH 01/01/17 17:45 01/02/17 08:34 (KCl 20 Meq Premix Inj) 100 ml @ 50 mls/hr BOLUS ONCE IV 01/02/17 11:15 01/02/17 13:14 01/02/17 11:15 (Lopressor) 50 mg Q8HR PO 01/02/17 14:00 Family History Mother with history of diabetes and rheumatic fever. Father was healthy. . Substance Use Tobacco: Has been smoking half a pack per day for the past 50 years. Alcohol: 4 beers daily, 2 glasses of wine daily. Prescription med abuse: None reported. Illicits: None reported. . Psychosocial History Patient was born and raised in [place], she lives alone in [place], she is single, no kids, her highest level of education is high school. She used to work for the [employer] at a [employer] for over 30 years. No service. Patient has 2 elderly brothers residing in [place]. . Spiritual/Cultural Factors No yazidism affiliation. . (Amada Shanks) Living Will: Copy in medical record Health Care Surrogate: Copy in medical record Date completed: January 19, 2012. . Health Care Surrogate(s): [facility] Gee Strong Jr. -Patient's personal armhole baster jumpbasting Alternate [facility] Chioma Alvarenga -patient's best friend for the past 35 years. . Documented care wishes: Living will with standard verbiage as it pertains to not wishing that her dying be artificially prolonged in the setting of terminal condition, and end-stage condition or persistent vegetative state. . Family/friends goals: DNR/DNI. [facility] and alternate [facility] Robel electing to transition patient to comfort -directed care/allow natural with hospice services. . Ethical and Legal Issues No ethical legal issues have been identified. . (Amada Shanks) Physical Exam Vital Signs Date Time Temp Pulse Resp B/P Pulse Ox O2 Delivery O2 Flow Rate FiO2 01/02/17 12:00 98 01/02/17 12:00 98.7 108 19 163/78 98 01/02/17 11:54 22 01/02/17 11:00 82 01/02/17 10:00 82 01/02/17 09:00 84 01/02/17 08:39 22 01/02/17 08:34 96 Nasal Cannula 3.00 01/02/17 08:00 83 01/02/17 08:00 98.8 88 22 142/72 96 01/02/17 07:09 Nasal Cannula 2.00 01/02/17 07:00 90 01/02/17 06:00 97 01/02/17 05:00 95 01/02/17 04:00 99 01/02/17 04:00 Nasal Cannula 2.00 01/02/17 04:00 98.3 99 18 152/87 96 01/02/17 03:00 95 01/02/17 02:00 97 01/02/17 01:00 96 01/02/17 00:00 Nasal Cannula 2.00 01/02/17 00:00 98 01/02/17 00:00 98.1 98 18 150/72 97 01/01/17 23:00 95 01/01/17 22:00 92 01/01/17 21:00 96 01/01/17 20:00 93 01/01/17 20:00 98.1 93 18 153/68 97 01/01/17 20:00 Nasal Cannula 2.00 01/01/17 18:00 106 01/01/17 17:44 Nasal Cannula 2.00 01/01/17 17:00 98 01/01/17 16:00 102 01/01/17 16:00 98.6 101 18 162/73 97 01/01/17 15:00 96 01/01/17 14:00 94 01/01/17 01/02/17 19:00 07:00 Intake Total 817 ml 1650 ml Output Total 100 ml Balance 717 ml 1650 ml Intake Oral 0 ml 0 ml IV Total 817 ml 1650 ml Output Urine Total 100 ml # Voids 2 6 # Bowel Movements 0 0 Exam CONSTITUTIONAL/GENERAL: This is an elderly female, sleeping in bed. No acute distress. TUBES/LINES/DRAINS: PIV's. SKIN: No jaundice. Ecchymoses on upper extremities. Scattered scabs on bilateral hands. Skin temperature appropriate. Not diaphoretic. HEAD: Atraumatic. Normocephalic. EYES: Pupils equal and round and reactive. Extraocular motions intact. No scleral icterus. No injection or drainage. ENT: Hearing appears grossly normal. Nose without bleeding or purulent drainage. Dry lips. NECK: Trachea midline. Supple, nontender. CARDIOVASCULAR: Regular rate and rhythm. No JVD. Peripheral pulses symmetric. RESPIRATORY/CHEST: Symmetric, unlabored respirations. Clear to auscultation but diminished. No wheezes, rales, or rhonchi. GASTROINTESTINAL: Abdomen soft, tender, scabs and erythema to left upper quadrant. Bowel sounds present. GENITOURINARY: Without palpable bladder distension. MUSCULOSKELETAL: Extremities without clubbing, cyanosis, or edema. NEUROLOGICAL: Sleepy, lethargic. Confused. Alert to self, disoriented as to place and situation. PSYCHIATRIC: Anxious at times. . (Amada Shanks) Diagnostic Tests Laboratory Laboratory Tests Test 01/01/17 01/01/17 01/01/17 01/02/17 04:41 15:23 20:31 07:29 White Blood Count 7.4 TH/MM3 (4.0-11.0) Red Blood Count 3.61 MIL/MM3 (4.00-5.30) Hemoglobin 11.2 GM/DL (11.6-15.3) Hematocrit 33.9 % (35.0-46.0) Mean Corpuscular Volume 94.0 FL (80.0-100.0) Mean Corpuscular Hemoglobin 31.2 PG (27.0-34.0) Mean Corpuscular Hemoglobin 33.1 % Concent (32.0-36.0) Red Cell Distribution Width 11.8 % (11.6-17.2) Platelet Count 367 TH/MM3 (150-450) Mean Platelet Volume 7.5 FL (7.0-11.0) Neutrophils (%) (Auto) 80.5 % (16.0-70.0) Lymphocytes (%) (Auto) 7.9 % (9.0-44.0) Monocytes (%) (Auto) 9.5 % (0.0-8.0) Eosinophils (%) (Auto) 1.6 % (0.0-4.0) Basophils (%) (Auto) 0.5 % (0.0-2.0) Neutrophils # (Auto) 5.9 TH/MM3 (1.8-7.7) Lymphocytes # (Auto) 0.6 TH/MM3 (1.0-4.8) Monocytes # (Auto) 0.7 TH/MM3 (0-0.9) Eosinophils # (Auto) 0.1 TH/MM3 (0-0.4) Basophils # (Auto) 0.0 TH/MM3 (0-0.2) CBC Comment DIFF FINAL Differential Comment Sodium Level 148 MEQ/L 148 MEQ/L 145 MEQ/L 142 MEQ/L (136-145) (136-145) (136-145) (136-145) Potassium Level 2.5 MEQ/L 2.9 MEQ/L 2.9 MEQ/L 3.5 MEQ/L (3.5-5.1) (3.5-5.1) (3.5-5.1) (3.5-5.1) Chloride Level 110 MEQ/L 109 MEQ/L 108 MEQ/L 107 MEQ/L (98-107) (98-107) (98-107) (98-107) Carbon Dioxide Level 28.4 MEQ/L 26.4 MEQ/L 26.2 MEQ/L 25.4 MEQ/L (21.0-32.0) (21.0-32.0) (21.0-32.0) (21.0-32.0) Anion Gap 10 MEQ/L (5-15) 13 MEQ/L (5-15) 11 MEQ/L (5-15) 10 MEQ/L (5-15) Blood Urea Nitrogen 9 MG/DL (7-18) 9 MG/DL (7-18) 8 MG/DL (7-18) 8 MG/DL (7-18) Creatinine 0.42 MG/DL 0.32 MG/DL 0.32 MG/DL 0.38 MG/DL (0.50-1.00) (0.50-1.00) (0.50-1.00) (0.50-1.00) Estimat Glomerular Filtration 148 ML/MIN 202 ML/MIN 202 ML/MIN 166 ML/MIN Rate (>89) (>89) (>89) (>89) Random Glucose 109 MG/DL 91 MG/DL 100 MG/DL 94 MG/DL (74-106) (74-106) (74-106) (74-106) Calcium Level 9.9 MG/DL 10.2 MG/DL 9.5 MG/DL 9.8 MG/DL (8.5-10.1) (8.5-10.1) (8.5-10.1) (8.5-10.1) Magnesium Level 1.7 MG/DL 2.4 MG/DL (1.5-2.5) (1.5-2.5) (Amada Shanks) Result Diagram: 01/01/17 0441 01/02/17 0729 Procedures * 12/19/16 -CT guide biopsy of the destructive lesion in the medial T11 rib on the right. * 12/27/16 -Cystoscopy with bilateral retrograde study and bladder biopsy of posterior wall . (Amada Shanks) Patient/Family Conference Present at Family Conference: Primary HCS Gee Strong and alternate HCS Chioma Alvarenga. Family Conference Time (mins): 52 (2 separate meetings. When meeting with Chioma Alvarenga and telephone conversation with Gee Ibarra.) Family Conference Location: Consult Room, Telephone Issues Discussed: * Palliative care role, purpose, approach * Additional medical, psychosocial, and spiritual history * Patients general health, functional status, and cognitive changes in the months leading up to the current hospitalization * HCS understanding of the current medical problems -metastatic urothelial cancer, stage IV * HCS understanding of prognosis -hours to days if illness run its natural course. * Patients goals of care as best understood from advance directives and/or conversations and/or values. As per advance directives * Current medical treatment options and benefits/burdens of those options * Likely scenarios comparing ongoing aggressive care with a transition to comfort measures only * Questions answered to the best of my ability * Palliative care contact information provided * Hospice philosophy and benefits . (Amada Shanks) Assessment and Plan Disease Oriented Problem List: (1) Metastatic disease (2) Atrial fibrillation with RVR (3) Lytic lesion of bone on x-ray (4) Unspecified psychosis Symptom Scale: (1) Intractable pain 0-10 Scale: Unable to quantify Comment: Secondary to burden of disease. (2) Debility 0-10 Scale: Unable to quantify Comment: Secondary to burden of disease and prolonged hospitalization. Pertinent Non-Medical Issues Psychosocial: . No children. Has 2 elderly brothers in [place]. Spiritual: No yazidism affiliations. Legal: Advance directives completed. Ethical issues impacting care: Advance directives completed. . Important Contacts [facility] Gee MohanJr kayce. -Patient's personal armhole baster jumpbasting ([phone]) Alternate [facility] Chioma Alvarenga -patient's best friend for the past 35 years & . . Prognosis Mrs. Odell is a 71 y/o female with a past medical history of RA who presented to the emergency room on 12/17/16 with complaints of intractable pain. Patient was found to have progressive metastatic disease, likely urothelial cancer -stage IV. Patient's clinical condition continued to worsen secondary to acute complications, progressive decline. Patient overall prognosis is poor given rapid progression of disease, multiple comorbidities, acute complications and prolonged hospitalization. Healthcare surrogate and alternate healthcare surrogate electing comfort directed care with hospice which appears appropriate given poor prognosis, rapid progression of disease and known wishes as stated in her living will. Life expectancy likely of hours to days if illness runs its natural course. . Code Status: No Code Plan * CODE STATUS: No code. DNR/DNI. * HEALTHCARE DECISION-MAKER: Copy of designation and healthcare surrogate in file. [facility] Gee Jr. Ligia -Patient's personal armhole baster jumpbasting. Alternate [facility] Chioma Alvarenga -patient's best friend for the past 35 years. Primary [facility] Ligia is currently out of the state of [place] and unable to sign documents. He has provided verbal authorization for alternate [facility] to sign DNR and hospice documents. * GOALS OF CARE: [facility] Strong and [facility] Lyle jointly electing to transition patient to comfort-directed care/allow natural with hospice. This decision was made given patient's progressive metastatic disease, worsening clinical status and known wishes as stated in her living will. Hospice referral has been made. Patient to be transferred to hospice care center for acute pain and symptom management. * SYMPTOMS: = Pain: Secondary to burden of disease with bone metastasis. Patient on morphine IV as needed. Pending transfer to hospice care center for symptom management of pain. = Debility: Secondary to burden of disease and prolonged hospitalization. Likely to worsen. * Case has been discussed with Dr. Rajput and rn case manager hospice. * Ongoing emotional support and active listening provided to friend Chioma Alvarenga. * Palliative care contact information has been provided to healthcare surrogate and alternate healthcare surrogate. . (Amada Shanks) Time Spent Total Floor Time (mins): 98 (Total time to include review and summarization of available medical records to include prior hospitalizations, physical exam, goals of care conversation with healthcare surrogate Strong over the phone and Lyle in person, case discussion with Dr. Rajput and rn case manager hospice.) >50% Counseling/Coord of Care: Yes (Amada Shanks) Thank you for the opportunity to participate in the care of Ms. Odell. (Amada Shanks) Attestation To help prompt me to consider important information that might be impacting today's encounter and assessment, information from prior notes written by myself or my colleagues may have been "brought forward" into today's note. My signature on this note, however, is an attestation that I personally performed the exam, history, and/or decision-making noted today, and, unless otherwise indicated, the interactions with patient, family, and staff as well as the review of records all occurred today. I also attest that the listed assessment and stated plan reflect my best clinical judgment today based on the combination of historical information, prior notes, and today's exam/ interactions. When time spent is documented, it refers only to time spent today by the signer, or if indicated, combined time spent today by collaborating physician/nurse practitioner. (Amada Shanks) Collaborating MD Comments d/w michael, agree with assessment and plan. (Flaco Crane MD) Amada Shanks January 02, 2017 14:17 Flaco Crane MD January 03, 2017 11:34
== END 2017-01-02 16:48 | disposition hospice, inpatient (51) | DRG 309 ==
LOC: HCIS 23:10
PROVIDERS: ADMIT Hospitalist; ATTEND Hospitalist
DX: I48.91 Unspecified atrial fibrillation (principal); C79.51 Secondary malignant neoplasm of bone; C67.9 Malignant neoplasm of bladder, unspecified; M41.9 Scoliosis, unspecified; R13.10 Dysphagia, unspecified; I48.92 Unspecified atrial flutter; M06.9 Rheumatoid arthritis, unspecified; F17.210 Nicotine dependence, cigarettes, uncomplicated; R33.9 Retention of urine, unspecified; E87.6 Hypokalemia; Z51.5 Encounter for palliative care; Z66 Do not resuscitate
CPT/HCPCS: 80048; 83735; 85025; J0360; J1650; J2060; J2270; J3475; J3480